=== PATIENT | male | born 1990 | race Caucasian/White ===

== ENCOUNTER 2021-03-18 01:21 | Emergency (ER) | payer BC, SELFPAY ==
[2021-03-18 01:25] VITALS: BP 135/79; PULSE 118; RESP 20; TEMP 36.8; O2SAT 93; BMI 40.7
--- NOTE | 2021-03-18 01:43 | PC.NURSE ---
MD at bedside for primary evaluation
[2021-03-18] MEDS: 0.9 % Sodium Chloride 1,000 ML 999 ML IVCONT ×2 (02:00→03:00)
[2021-03-18 02:01] LABS: Basophils Percent Auto 0.2 % (0-2); Eosinophils Absolute Auto 0.2 X10*3/uL (0.0-0.4); Eosinophils Percent Auto 1.8 % (0-4); Hematocrit 54.8 % (42-52); Hemoglobin 18.3 g/dl (14.0-18.0); Imm Gran Abs Auto 0.03 X10*3/uL (0.00-0.03); Imm Gran Pct Auto 0.3 % (0.0-0.4); Lymphocytes Absolute Auto 1.5 X10*3/uL (1.2-4.9); Lymphocytes Percent Auto 12.9 % (20-40); MANUAL DIFF FLAG NO; Mean Corpuscular HGB Conc 33.4 g/dl (31.0-36.0); Mean Corpuscular Hemoglobin 26.5 pg (27.0-33.0); Mean Corpuscular Volume 79.3 fL (80-98); Mean Platelet Volume 9.7 fL (9.4-12.4); Monocytes Absolute Auto 0.6 X10*3/uL (0.1-1.2); Monocytes Percent Auto 5.4 % (2-11); Neutrophils Absolute Auto 8.9 X10*3/uL (2.0-8.3); Neutrophils Percent Auto 79.4 % (45-73); Platelet Count 281 X10*3/uL (160-400); Red Blood Count 6.91 X10*6/uL (4.60-5.80); Red Cell Distribution Width 14.5 % (11.0-16.0); White Blood Count 11.2 X10*3/uL (4.8-10.8)
[2021-03-18] MEDS: ondansetron HCL 4 MG/2 ML VIAL IVPUSH (02:01)
[2021-03-18 02:02] LABS: OBS Int Ctl Valid YES; OBS1 POSITIVE (NEGATIVE)
[2021-03-18] MEDS: Famotidine/PF 20 MG/2 ML VIAL IVPUSH (02:03)
[2021-03-18] MEDS: Magnesium Hydrox/Alum Hydrox 30 ML ORAL.SUSP PO (02:16)
[2021-03-18 02:30] LABS: Alanine Aminotransferase 56 U/L (0-40); Albumin Level 4.4 g/dL (3.5-5.0); Alkaline Phosphatase 80 U/L (39-117); Anion Gap 18 (12-20); Aspartate Amino Transferase 25 U/L (5-37); Bilirubin Direct 0.2 mg/dL (0.0-0.5); Bilirubin Total 0.6 mg/dL (0.0-1.0); Blood Urea Nitrogen 11 mg/dL (9-16); Calcium 9.6 mg/dL (8.4-10.2); Carbon Dioxide 23 mmol/L (22-29); Chloride 102 mmol/L (96-108); Creatinine Clr Calc Pharmacy 126.4; Estimated Glomerular Filt Rate > 60; Glucose Random 137 mg/dL (60-115); Lipase 21 U/L (8-78); Potassium 4.1 mmol/L (3.3-5.1); Sodium 139 mmol/L (135-145); Total Protein 8.6 g/dL (6.5-8.0)
--- NOTE | 2021-03-18 02:52 | ED_ITS ---
HPI - Nausea/Vomiting/Diarrhea General Chief complaint: Nausea/Vomiting/Diarrhea Stated complaint: Abd pain Time Seen by Provider: 03/18/21 01:47 Source: patient and family Mode of arrival: ambulatory Limitations: no limitations History of Present Illness HPI Narrative: 30-year-old male came in for evaluation of nausea, vomiting and diarrhea. Symptoms started 24 hours ago after eating at [employer] restaurant, no other sick contact ate the same food but not sick, presented with vomiting which is constant unable to keep no food or fluid down for all day, 4-5 times nonbloody watery diarrhea (described as coffee-ground diarrhea), complaining of epigastric/left upper abdominal pain. Symptoms were constant or day today, described as moderate 5/10, associated with coffee-ground diarrhea, n othing improved the symptoms, food and water will make the symptoms worse, patient had similar episode of symptoms 2 years ago was diagnosed with gastritis. Related Data Previous Rx's Medication Instructions Recorded albuterol sulfate 90 mcg/actuation 1 inh INHALATION QID PRN 30 Days 02/25/21 aerosol inhaler #8.5 g prednisone 50 mg tablet 50 mg PO DAILY 6 Days #6 tab 02/25/21 omeprazole magnesium [Prilosec OTC] 20 mg PO BID #30 tab 03/18/21 ondansetron HCl [Zofran] 4 mg PO Q8H PRN #10 tab 03/18/21 Allergies Allergy/AdvReac Type Severity Reaction Status Date / Time No Known Allergies Allergy Verified 03/18/21 01:24 [No Known Allergies*] Pumpkin Flavor Allergy Unknown hives, Uncoded 08/23/19 00:00 nausea/vomiting Review of Systems Review of Systems: All other systems are reviewed and are negative Constitutional: Reports as per HPI and Reports no additional constitutional complaints Eyes: Reports as per HPI and Reports no additional eye complaints Reports system reviewed and no additional complaints, except as documented Cardiovascular: Reports as per HPI and Reports no additional cardiovascular complaints Respiratory: Reports as per HPI and Reports no additional respiratory complaints Gastrointestinal: Reports as per HPI and Reports no additional gastrointestinal complaints Genitourinary: Reports no additional female genitourinary complaints Musculoskeletal: Reports no additional musculoskeletal complaints Skin/Breast: Reports system reviewed and no additional complaints, except as docu Psychiatric: Reports no additional psychiatric complaints Endocrine: Reports no additional endocrine complaints Hematologic/Lymphatic: Reports no additional hematologic/lymphatic complaints Allergic/Immunologic: Reports no additional allergic/immunologic complaints Reports system reviewed and no additional complaints, except as documented and Reports Abnormal speech present [facility] Past Medical History Medical History Hypertension Social History Social History Advance Directives: No Advance Directives Information Provided: No Physical Exam Vital Signs: Vital Signs: Last Vital Signs Temp 98.3 F 03/18/21 01:25 Pulse 118 H 03/18/21 01:25 Resp 16 03/18/21 03:30 BP 135/79 03/18/21 01:25 Pulse Ox 93 03/18/21 01:25 Body Mass Index 40.7 Vital signs have been reviewed as appeared to be correct. Blood pressure normal. Heart rate elevated. Respiration rate normal. Temperature normal. Ox ygen saturation normal. Appearance: Alert. Oriented X3. No acute distress. Head: Normal external exam. Normocephalic. Atraumatic. No Conti signs noted. No raccoon eyes noted Eyes: PERRLA. EOMI. Conjunctiva and sclera normal. Eyelids normal. ENT: TM's Normal. Pharynx normal. Uvula midline. Moist mucous membranes. No trismus noted. No drooling noted. No muffled voice noted. Neck: Normal inspection. Neck supple. FROM. No adenopathy. Thyroid Normal. No meningeal signs. No neck mass noted. CVS: Normal heart rate and rhythm. Heart sound normal. No murmurs noted. Pulses normal throughout. Respiratory: No respiratory distress. Painless inspiration. Breath sounds normal. No wheezes/rales/rhonchi noted. Chest nontender. No accessory muscle usage noted or decreased air movement noted. Abdomen: Soft, obese, mild tenderness in epigastric and left upper quadrant area, no guarding, no rebound tenderness. Bowel sounds normal in all 4 quadrants. No distention noted. No organomegaly noted. No visible injury noted. Back: No CVA tenderness. Full range of motion noted. Skin: Skin warm and dry. Normal skin color. Normal skin turgor. No rashes/lesions/lacerations noted. Extremities: No lower extremity edema. Extremities exhibit normal range of motion. Extremities nontender. Neuro: Oriented X 3. No motor deficit. No sensory deficit. Reflexes normal. Course Course Course Narrative: Assessment and plan. 30-year-old male came in with nausea, vomiting, diarrhea. Patient received IV fluids/IV Zofran patient is feeling better, able to tolerate p.o. intake. Heme concentration which is old since 2019, patient was advised to follow-up with his primary doctor he has physical exam coming in the next 2 weeks and patient was encouraged to discuss that with his primary doctor for further workup for differential diagnosis of higher mass of RBCs differential diagnosis was discussed with the patient included polycythemia vera in our discussion. MDM - Nausea/Vomiting/Diarrhea Lab Data Attestation: I reviewed the patient's lab results. Result diagrams: 03/18/21 01:54 03/18/21 01:54 Labs: Lab Results 03/18/21 03/18/21 03/18/21 Range/Units 01:50 01:54 01:54 WBC 11.2 H (4.8-10.8) X10*3/uL RBC 6.91 H (4.60-5.80) X10*6/uL Hgb 18.3 H (14.0-18.0) g/dl Hct 54.8 H (42-52) % MCV 79.3 L (80-98) fL MCH 26.5 L (27.0-33.0) pg MCHC 33.4 (31.0-36.0) g/dl RDW 14.5 (11.0-16.0) % Plt Count 281 (160-400) X10*3/uL MPV 9.7 (9.4-12.4) fL Immature Gran % (Auto) 0.3 (0.0-0.4) % Neut % (Auto) 79.4 H (45-73) % Lymph % (Auto) 12.9 L (20-40) % [place] % (Auto) 5.4 (2-11) % Eos % (Auto) 1.8 (0-4) % Baso % (Auto) 0.2 (0-2) % Lymph # (Auto) 1.5 (1.2-4.9) X10*3/uL [place] # (Auto) 0.6 (0.1-1.2) X10*3/uL Eos # (Auto) 0.2 (0.0-0.4) X10*3/uL Baso # (Auto) 0.0 (0.0-0.2) X10*3/uL Abs Immat Gran (auto) 0.03 (0.00-0.03) X10*3/uL Absolute Neuts (auto) 8.9 H (2.0-8.3) X10*3/uL Absolute Nucleated RBC 0.000 (0.0-0.012) X10*3/uL Nucleated RBC % (auto) 0.0 (0.0-0.2) /100WBC Sodium 139 (135-145) mmol/L Potassium 4.1 (3.3-5.1) mmol/L Chloride 102 (96-108) mmol/L Carbon Dioxide 23 (22-29) mmol/L Anion Gap 18 (12-20) BUN 11 (9-16) mg/dL Creatinine 0.90 (0.5-1.4) mg/dL Estim Creat Clear Calc 126.4 Estimated GFR > 60 Random Glucose 137 H (60-115) mg/dL Calcium 9.6 (8.4-10.2) mg/dL Total Bilirubin 0.6 (0.0-1.0) mg/dL Direct Bilirubin 0.2 (0.0-0.5) mg/dL AST 25 (5-37) U/L ALT 56 H (0-40) U/L Alkaline Phosphatase 80 (39-117) U/L Total Protein 8.6 H (6.5-8.0) g/dL Albumin 4.4 (3.5-5.0) g/dL Lipase 21 (8-78) U/L Urine Color Urine Appearance Urine pH (5.0-8.0) Ur Specific [place] (1.005-1.025) Urine Protein (NEG-TRACE) MG/DL Urine Glucose (UA) (NEG) MG/DL Urine Ketones (NEG) MG/DL Urine Blood (NEG) Urine Nitrite (NEG) Ur Leukocyte Esterase (NEG) Urine RBC (0) /HPF Urine WBC (0-4) /HPF Ur Squamous Epith Cells /LPF Urine Bacteria /LPF Urine Mucus /LPF Stool Occult Blood POSITIVE (NEGATIVE) 03/18/21 Range/Units 02:57 WBC (4.8-10.8) X10*3/uL RBC (4.60-5.80) X10*6/uL Hgb (14.0-18.0) g/dl Hct (42-52) % MCV (80-98) fL MCH (27.0-33.0) pg MCHC (31.0-36.0) g/dl RDW (11.0-16.0) % Plt Count (160-400) X10*3/uL MPV (9.4-12.4) fL Immature Gran % (Auto) (0.0-0.4) % Neut % (Auto) (45-73) % Lymph % (Auto) (20-40) % [place] % (Auto) (2-11) % Eos % (Auto) (0-4) % Baso % (Auto) (0-2) % Lymph # (Auto) (1.2-4.9) X10*3/uL [place] # (Auto) (0.1-1.2) X10*3/uL Eos # (Auto) (0.0-0.4) X10*3/uL Baso # (Auto) (0.0-0.2) X10*3/uL Abs Immat Gran (auto) (0.00-0.03) X10*3/uL Absolute Neuts (auto) (2.0-8.3) X10*3/uL Absolute Nucleated RBC (0.0-0.012) X10*3/uL Nucleated RBC % (auto) (0.0-0.2) /100WBC Sodium (135-145) mmol/L Potassium (3.3-5.1) mmol/L Chloride (96-108) mmol/L Carbon Dioxide (22-29) mmol/L Anion Gap (12-20) BUN (9-16) mg/dL Creatinine (0.5-1.4) mg/dL Estim Creat Clear Calc Estimated GFR Random Glucose (60-115) mg/dL Calcium (8.4-10.2) mg/dL Total Bilirubin (0.0-1.0) mg/dL Direct Bilirubin (0.0-0.5) mg/dL AST (5-37) U/L ALT (0-40) U/L Alkaline Phosphatase (39-117) U/L Total Protein (6.5-8.0) g/dL Albumin (3.5-5.0) g/dL Lipase (8-78) U/L Urine Color YELLOW Urine Appearance CLEAR Urine pH 6.0 (5.0-8.0) Ur Specific [place] >= 1.030 H (1.005-1.025) Urine Protein 2+ H (NEG-TRACE) MG/DL Urine Glucose (UA) NEG (NEG) MG/DL Urine Ketones NEG (NEG) MG/DL Urine Blood TRACE (NEG) Urine Nitrite NEG (NEG) Ur Leukocyte Esterase NEG (NEG) Urine RBC 1-4 (0) /HPF Urine WBC 1-4 (0-4) /HPF Ur Squamous Epith Cells 1+ /LPF Urine Bacteria 1+ /LPF Urine Mucus 1+ /LPF Stool Occult Blood (NEGATIVE) Discharge Plan Discharge Clinical Impression: Gastroenteritis Patient Disposition: Home, Self-Care Instructions: Acute Nausea and Vomiting (ED) Prescriptions: New omeprazole magnesium [Prilosec OTC] 20 mg tablet,delayed release (DR/EC) 20 mg PO BID Qty: 30 RF: 0 ondansetron HCl [Zofran] 4 mg tablet 4 mg PO Q8H PRN (Reason: nausea and vomiting) Qty: 10 RF: 0 No Action albuterol sulfate 90 mcg/actuation HFA aerosol inhaler 1 inh inhalation QID PRN (Reason: shortness of breath or wheezing) 30 Days Qty: 8.5 RF: 1 prednisone 50 mg tablet 50 mg PO DAILY 6 Days Qty: 6 RF: 0 Referrals: Alejandro Flores, [employer] [Primary Care Provider] - 2 weeks (Discuss with your primary doctor the high blood count that we found today in your laboratory workup.) Stand Alone Forms: Work/School Release
[2021-03-18 03:03] LABS: Glucose Urine UA NEG (NEG); Leukocyte Esterase Urine NEG (NEG); Nitrite Urine NEG (NEG); Specific Gravity - Urine >= 1.030 (1.005-1.025); Urine Blood TRACE (NEG); Urine Ketones NEG (NEG); Urine Protein 2+ MG/DL (NEG-TRACE)
[2021-03-18 03:06] LABS: Appearance Urine CLEAR; Color Urine YELLOW
[2021-03-18 03:13] LABS: Bacteria Urine 1+ /LPF; Mucus Urine 1+ /LPF; Squamous Epithelial Cell Urine 1+ /LPF
[2021-03-18 03:30] VITALS: RESP 16
[2021-03-18] MEDS: Morphine Sulfate 2 MG/ML CARTRIDGE IVPUSH (03:30)
== END 2021-03-18 05:47 | disposition home or self-care (01) ==
PROVIDERS: Emergency Provider Emergency Medicine; PCP Nurse Practitioner Family
DX: K52.9 Noninfective gastroenteritis and colitis, unspecified (principal); R11.2 Nausea with vomiting, unspecified; I10 Essential (primary) hypertension; K75.81 Nonalcoholic steatohepatitis (NASH)
CPT/HCPCS: 36415; 80048; 80076; 81001; 82272; 83690; 85025; 96361; 96374; 96375; 99284; J2270; J2405

== ENCOUNTER 2021-03-30 20:01 | Observation (INO) | payer BC, SELFPAY ==
--- NOTE | ~2021-03-30 | CT_ITS ---
EXAMINATION: CT ABDOMEN AND PELVIS WITH CONTRAST CLINICAL INFORMATION: Abdominal pain, nausea and vomiting COMPARISON: None TECHNIQUE: Multidetector volumetric images were obtained from the superior aspect of the liver through the pubic symphysis following administration 85 mL of Omnipaque 350 intravenous contrast. Sagittal and coronal reformatted images were obtained on the technologist's workstation. Oral contrast: No This CT examination was performed using dose optimization techniques as appropriate, variously including the following: *Automated exposure control *Adjustment of mA and/or kV according to patient size (this includes techniques or standardized protocols for targeted exams where dose is matched to indication/reason for exam; i.e. extremities or head) *Use of iterative reconstruction technique DLP: 733 mGy-cm FINDINGS: LUNG BASES: The visualized lung bases are unremarkable. LIVER, GALLBLADDER, AND BILIARY TREE: Liver is enlarged measuring almost 23 cm in cephalocaudad dimension and demonstrates decreased attenuation consistent with hepatic steatosis. There are areas of focal fatty sparing adjacent to the gallbladder. No focal hepatic lesion or biliary ductal dilatation is present. The gallbladder is unremarkable with no evidence of radiopaque gallstones, gallbladder wall thickening, or obvious pericholecystic inflammatory changes. PANCREAS: Unremarkable. SPLEEN: Unremarkable. ADRENAL GLANDS: Unremarkable. KIDNEYS AND URETERS: The kidneys are normal in size, shape, and attenuation. A benign 5 mm angiomyolipoma is noted in the upper pole of the right kidney. No worrisome renal masses are seen. No hydronephrosis, hydroureter, or calculi seen. No perinephric stranding. BLADDER: Unremarkable. GASTROINTESTINAL TRACT: The small and large bowel are unremarkable. The appendix is unremarkable. ABDOMINAL WALL: No significant hernia is appreciated. LYMPH NODES: No retroperitoneal lymphadenopathy. VASCULAR: Unremarkable. PELVIC VISCERA: Prostate and seminal vesicles appear normal. OSSEOUS STRUCTURES: Unremarkable. CT/CT abdomen pelvis w con IMPRESSION: 1. Enlarged fatty liver 2. Tiny benign right renal angiomyolipoma
--- NOTE | ~2021-03-30 | XR_ITS ---
EXAMINATION: XR CHEST CLINICAL INFORMATION: Abdominal pain, nausea, vomiting and diarrhea COMPARISON: None TECHNIQUE: Frontal view of the chest was obtained. FINDINGS: No significant abnormality is noted involving the heart, lungs, mediastinum, bony thorax or soft tissues. XR/XR chest 1V IMPRESSION: Unremarkable examination.
[2021-03-30 20:52] VITALS: BP 154/94; PULSE 100; RESP 20; TEMP 36.3; O2SAT 95; BMI 39.5
[2021-03-30 22:24] LABS: MANUAL DIFF FLAG NO
--- NOTE | 2021-03-30 22:28 | ECG_ITS ---
Test Reason : EPIGASTRIC PAIN Blood Pressure : / mmHG Vent. Rate : 096 BPM Atrial Rate : 096 BPM P-R Int : 146 ms QRS Dur : 078 ms QT Int : 414 ms P-R-T Axes : 054 021 -06 degrees QTc Int : 523 ms Normal sinus rhythm Prolonged QT Abnormal ECG No previous ECGs available Referred By: Kerrie Cook Electronically Signed By:BERTO LEDEZMA MD
[2021-03-30 22:29] LABS: Basophils Percent Auto 0.3 % (0-2); Eosinophils Absolute Auto 0.2 X10*3/uL (0.0-0.4); Eosinophils Percent Auto 1.6 % (0-4); Hematocrit 50.7 % (42-52); Hemoglobin 17.1 g/dl (14.0-18.0); Imm Gran Abs Auto 0.07 X10*3/uL (0.00-0.03); Imm Gran Pct Auto 0.7 % (0.0-0.4); Lymphocytes Percent Auto 21.3 % (20-40); Mean Corpuscular HGB Conc 33.7 g/dl (31.0-36.0); Mean Corpuscular Hemoglobin 26.6 pg (27.0-33.0); Mean Corpuscular Volume 78.7 fL (80-98); Monocytes Absolute Auto 0.5 X10*3/uL (0.1-1.2); Monocytes Percent Auto 5.2 % (2-11); Neutrophils Absolute Auto 6.6 X10*3/uL (2.0-8.3); Neutrophils Percent Auto 70.9 % (45-73); Platelet Count 261 X10*3/uL (160-400); Red Blood Count 6.44 X10*6/uL (4.60-5.80); Red Cell Distribution Width 13.7 % (11.0-16.0); White Blood Count 9.4 X10*3/uL (4.8-10.8)
[2021-03-30 22:38] LABS: Glucose Urine UA NEG (NEG); Leukocyte Esterase Urine NEG (NEG); Nitrite Urine NEG (NEG); Specific Gravity - Urine >= 1.030 (1.005-1.025); Urine Blood TRACE (NEG); Urine Ketones NEG (NEG); Urine Protein 2+ MG/DL (NEG-TRACE)
[2021-03-30 22:41] LABS: Alanine Aminotransferase 47 U/L (0-40); Albumin Level 4.1 g/dL (3.5-5.0); Alkaline Phosphatase 81 U/L (39-117); Anion Gap 16 (12-20); Aspartate Amino Transferase 31 U/L (5-37); Bilirubin Total 0.6 mg/dL (0.0-1.0); Blood Urea Nitrogen 10 mg/dL (9-16); Calcium 9.1 mg/dL (8.4-10.2); Carbon Dioxide 21 mmol/L (22-29); Chloride 104 mmol/L (96-108); Creatinine Clr Calc Pharmacy 148.7; Estimated Glomerular Filt Rate > 60; Glucose Random 133 mg/dL (60-115); Potassium 3.6 mmol/L (3.3-5.1); Sodium 137 mmol/L (135-145); Total Protein 8.3 g/dL (6.5-8.0)
[2021-03-30 22:44] LABS: Appearance Urine CLEAR; Color Urine YELLOW
[2021-03-30 22:47] LABS: Bacteria Urine 1+ /LPF; Hyaline Casts Urine 0-2 /LPF; Mucus Urine 2+ /LPF; Squamous Epithelial Cell Urine 1+ /LPF
[2021-03-30 23:05] VITALS: BP 134/87; PULSE 87; RESP 16; TEMP 36.6; O2SAT 98
[2021-03-30 23:07] LABS: Bilirubin Direct 0.2 mg/dL (0.0-0.5); Lipase 27 U/L (8-78); Magnesium 1.7 mg/dL (1.6-2.6); Triglycerides 939 mg/dL
--- NOTE | 2021-03-30 23:15 | ED_ITS ---
HPI - Abdominal Pain General Chief Complaint: Abdominal Pain Stated Complaint: nvd Source: patient Mode of arrival: ambulatory Limitations: no limitations History of Present Illness HPI narrative: 30-year-old male presents with abdominal pain, and intractable nausea and vomiting over the past several weeks. States the pain has come and gone, as well as the nausea and vomiting however has been present almost on a daily basis. Was seen approximately 2 weeks ago for similar circumstances with no significant findings. Patient stated that his difficult time eating and drinking over the past few days. He does not report any chest pain or pressure, palpitations, shortness breath, shortness breath on exertion, abdominal distention, dysuria, hematuria, diarrhea, constipation, melena, hematochezia, loss of balance, weakness, fevers, chills, or any other concerning symptoms. Patient does not report diabetes, also states that he does not drink alcohol on regular basis. MD elicited complaint: abdominal pain Onset (ago): week(s) Pain Consistency: intermittent Location: diffuse Severity: moderate Quality: aching Exacerbating factors: eating and vomiting Relieving factors: nothing Treatments prior to arrival: other (Antiemetics) Related Data Home Medications Medication Instructions Recorded Confirmed No Known Home Meds 03/31/21 03/31/21 Allergies Allergy/AdvReac Type Severity Reaction Status Date / Time No Known Allergies Allergy Verified 03/18/21 01:24 [No Known Allergies*] Pumpkin Flavor Allergy Unknown hives, Uncoded 08/23/19 00:00 nausea/vomiting Review of Systems Review of Systems Constitutional: No Weight loss, No Fever, No Chills, No Night Sweats, No Fatigue, No Malaise ENT/Mouth: No Hearing loss, No Ear Pain, No Nasal Congestion, No Sinus Pain, No Hoarseness, No sore throat, No Rhinorrhea, No Swallowing Difficulty Eyes: No Eye Pain, No Swelling, No Redness, No Foreign Body, No Discharge, No Vision Changes Cardiovascular: No Chest Pain, No SOB, No Dyspnea on Exertion, No Orthopnea, No Edema, No Palpitations Respiratory: No Cough, No Sputum, No Wheezing, No Smoke Exposure, No Dyspnea Gastrointestinal: Positive Nausea, Positive Vomiting, no Diarrhea, positive abdominal Pain, No Hematochezia, No Melena Genitourinary: no irregular bleeding, No Dysuria, No Urinary Frequency, No Hematuria, No Urinary Incontinence, No Urgency, No Flank Pain, No Urinary Flow Changes, No Hesitancy Musculoskeletal: No joint pain, No Myalgias, No Joint Swelling Skin: No Skin Lesions, No rash Neuro: No Weakness, No Numbness, No Paresthesias, No Loss of Consciousness, No Dizziness, No Headache Psych: No Anxiety/Panic, No Depression, No SI/HI/AH/VH, No Social Issues Heme/Lymph: No Bruising, No Bleeding,No Lymphadenopathy Endocrine: No Polyuria, No Polydipsia, No Temperature Intolerance Yes all other systems are reviewed and are negative Physical Exam Vital Signs: Vital Signs: Last Vital Signs Temp 97.8 F 03/30/21 23:05 Pulse 87 03/30/21 23:05 Resp 20 03/30/21 23:22 BP 134/87 03/30/21 23:05 Pulse Ox 98 03/30/21 23:05 Body Mass Index 39.5 Appearance: Alert. Oriented X3. Moderate distress. Eyes: Pupils equal, round and reactive to light. Sclera nonicteric. ENT: Pharynx normal. Neck: Normal inspection. Neck supple. CVS: Tachycardic heart rate and rhythm. Pulses normal. Respiratory: No respiratory distress. Breath sounds normal. Abdomen: Soft and diffusely tender greater than right upper quadrant. Skin: Skin warm and dry. Normal skin color. Normal skin turgor. Extremities: No lower extremity edema. Moves all extremities against resistance, it well balanced well coordinated. Neuro: No motor deficit. No sensory deficit. Cranial nerves 2-12 intact. Course Course Course Narrative: 30-year-old male presents with intractable nausea and vomiting and abdominal pain. Was seen here 2 weeks ago with lab values indicating elevated triglycerides at about 840 and a mildly elevated white count. At this time we will order CT scan of abdomen and pelvis with contrast, CBC, Chem 7, lipase, LFTs, and triglycerides. Triglycerides elevated at 940, EKG indicates a prolonged QT interval, lipase 27, CBC unremarkable, chemistries are unremarkable with the exception of an elevated glucose of 133. Patient continues to have intractable nausea and vomiting after a dose of Zofran, did order Benadryl. Discussion with hospitalist for admission for intractable nausea vomiting, elevated triglycerides with a suspicion of pancreatitis although CT scan is ne gative for this finding. Consultations Consultation #1: rachel Time: 23:59 MDM - Abdominal Pain Differential Diagnosis Differential diagnosis: Likely abdominal pain, acute appendicitis, div erticulitis and pancreatitis Medical Records Attestation: I reviewed the patient's medical records. Lab Data Attestation: I reviewed the patient's lab results. Result diagrams: 03/30/21 22:06 03/30/21 22:06 Labs: Lab Results 03/30/21 03/30/21 03/30/21 Range/Units 22:06 22:06 22:06 WBC 9.4 (4.8-10.8) X10*3/uL RBC 6.44 H (4.60-5.80) X10*6/uL Hgb 17.1 (14.0-18.0) g/dl Hct 50.7 (42-52) % MCV 78.7 L (80-98) fL MCH 26.6 L (27.0-33.0) pg MCHC 33.7 (31.0-36.0) g/dl RDW 13.7 (11.0-16.0) % Plt Count 261 (160-400) X10*3/uL MPV 10.0 (9.4-12.4) fL Immature Gran % (Auto) 0.7 H (0.0-0.4) % Neut % (Auto) 70.9 (45-73) % Lymph % (Auto) 21.3 (20-40) % [place] % (Auto) 5.2 (2-11) % Eos % (Auto) 1.6 (0-4) % Baso % (Auto) 0.3 (0-2) % Lymph # (Auto) 2.0 (1.2-4.9) X10*3/uL [place] # (Auto) 0.5 (0.1-1.2) X10*3/uL Eos # (Auto) 0.2 (0.0-0.4) X10*3/uL Baso # (Auto) 0.0 (0.0-0.2) X10*3/uL Abs Immat Gran (auto) 0.07 H (0.00-0.03) X10*3/uL Absolute Neuts (auto) 6.6 (2.0-8.3) X10*3/uL Absolute Nucleated RBC 0.000 (0.0-0.012) X10*3/uL Nucleated RBC % (auto) 0.0 (0.0-0.2) /100WBC PT (10.8-13.0) SEC INR (0.9-1.1) APTT (24.1-38.0) SEC Sodium 137 (135-145) mmol/L Potassium 3.6 (3.3-5.1) mmol/L Chloride 104 (96-108) mmol/L Carbon Dioxide 21 L (22-29) mmol/L Anion Gap 16 (12-20) BUN 10 (9-16) mg/dL Creatinine 0.78 (0.5-1.4) mg/dL Estim Creat Clear Calc 148.7 Estimated GFR > 60 Random Glucose 133 H (60-115) mg/dL Lactic Acid (0.5-2.0) mmol/L Calcium 9.1 (8.4-10.2) mg/dL Magnesium 1.7 (1.6-2.6) mg/dL Total Bilirubin 0.6 (0.0-1.0) mg/dL Direct Bilirubin 0.2 (0.0-0.5) mg/dL AST 31 (5-37) U/L ALT 47 H (0-40) U/L Alkaline Phosphatase 81 (39-117) U/L Troponin I High Sens < 3.5 (<3.5-35.0) ng/L Total Protein 8.3 H (6.5-8.0) g/dL Albumin 4.1 (3.5-5.0) g/dL Triglycerides 939 mg/dL Lipase 27 (8-78) U/L Urine Color Urine Appearance Urine pH (5.0-8.0) Ur Specific [place] (1.005-1.025) Urine Protein (NEG-TRACE) MG/DL Urine Glucose (UA) (NEG) MG/DL Urine Ketones (NEG) MG/DL Urine Blood (NEG) Urine Nitrite (NEG) Ur Leukocyte Esterase (NEG) Urine RBC (0) /HPF Urine WBC (0-4) /HPF Ur Squamous Epith Cells /LPF Urine Bacteria /LPF Hyaline Casts /LPF Urine Mucus /LPF 03/30/21 03/30/21 03/30/21 Range/Units 22:22 22:59 22:59 WBC (4.8-10.8) X10*3/uL RBC (4.60-5.80) X10*6/uL Hgb (14.0-18.0) g/dl Hct (42-52) % MCV (80-98) fL MCH (27.0-33.0) pg MCHC (31.0-36.0) g/dl RDW (11.0-16.0) % Plt Count (160-400) X10*3/uL MPV (9.4-12.4) fL Immature Gran % (Auto) (0.0-0.4) % Neut % (Auto) (45-73) % Lymph % (Auto) (20-40) % [place] % (Auto) (2-11) % Eos % (Auto) (0-4) % Baso % (Auto) (0-2) % Lymph # (Auto) (1.2-4.9) X10*3/uL [place] # (Auto) (0.1-1.2) X10*3/uL Eos # (Auto) (0.0-0.4) X10*3/uL Baso # (Auto) (0.0-0.2) X10*3/uL Abs Immat Gran (auto) (0.00-0.03) X10*3/uL Absolute Neuts (auto) (2.0-8.3) X10*3/uL Absolute Nucleated RBC (0.0-0.012) X10*3/uL Nucleated RBC % (auto) (0.0-0.2) /100WBC PT 12.7 (10.8-13.0) SEC INR 1.1 (0.9-1.1) APTT 35.8 (24.1-38.0) SEC Sodium (135-145) mmol/L Potassium (3.3-5.1) mmol/L Chloride (96-108) mmol/L Carbon Dioxide (22-29) mmol/L Anion Gap (12-20) BUN (9-16) mg/dL Creatinine (0.5-1.4) mg/dL Estim Creat Clear Calc Estimated GFR Random Glucose (60-115) mg/dL Lactic Acid 1.8 (0.5-2.0) mmol/L Calcium (8.4-10.2) mg/dL Magnesium (1.6-2.6) mg/dL Total Bilirubin (0.0-1.0) mg/dL Direct Bilirubin (0.0-0.5) mg/dL AST (5-37) U/L ALT (0-40) U/L Alkaline Phosphatase (39-117) U/L Troponin I High Sens (<3.5-35.0) ng/L Total Protein (6.5-8.0) g/dL Albumin (3.5-5.0) g/dL Triglycerides mg/dL Lipase (8-78) U/L Urine Color YELLOW Urine Appearance CLEAR Urine pH 6.0 (5.0-8.0) Ur Specific [place] >= 1.030 H (1.005-1.025) Urine Protein 2+ H (NEG-TRACE) MG/DL Urine Glucose (UA) NEG (NEG) MG/DL Urine Ketones NEG (NEG) MG/DL Urine Blood TRACE (NEG) Urine Nitrite NEG (NEG) Ur Leukocyte Esterase NEG (NEG) Urine RBC 1-4 (0) /HPF Urine WBC 1-4 (0-4) /HPF Ur Squamous Epith Cells 1+ /LPF Urine Bacteria 1+ /LPF Hyaline Casts 0-2 /LPF Urine Mucus 2+ /LPF Imaging Data Chest x-ray: Attestation: I personally reviewed and interpreted this imaging study as follows: Radiologist's impression: EXAMINATION: XR CHEST CLINICAL INFORMATION: Abdominal pain, nausea, vomiting and diarrhea COMPARISON: None TECHNIQUE: Frontal view of the chest was obtained. FINDINGS: No significant abnormality is noted involving the heart, lungs, mediastinum, bony thorax or soft tissues. XR/XR chest 1V IMPRESSION: Unremarkable examination. ECG Data Attestation: I personally reviewed and interpreted this ECG as follows: ECG interpretation date: 03/30/21 ECG interpretation time: 23:38 Prior ECG tracings: not available for review Interpretation: Vent. rate 96 BPM MD interval 146 ms QRS duration 78 ms QT/QTc 414/523 ms P-R-T axes 54 21 -6 Normal sinus rhythm Prolonged QT Abnormal ECG No previous ECGs available Critical Care Time Critical Care Time Critical Care Time: Yes Total Critical Care Time: 45 Attestation: I have personally provided critical care time exclusive of time spent on separately billable procedures. Time includes review of laboratory data, radiology results, discussion with consultants, and monitoring for potential decompensation. Interventions were performed as documented. Discharge Plan Discharge Clinical Impression: High blood triglycerides, Intractable nausea and vomiting Pancreatitis Qualifiers: Chronicity: acute Pancreatitis type: unspecified pancreatitis type Acute pancreatitis complication: unspecified Qualified Code(s): K85.90 - Acute pancreatitis without necrosis or infection, unspecified Patient Disposition: Admitted As Inpatient [facility] Past Medical History Attestation statement: The following information was validated with the patient. Source: old records reviewed Medical History Hypertension Social History Social History Alcohol intake: never Patient Tobacco Use Status: Never used Tobacco Smoked in Last 30 Days: No Use of substances other than those prescribed or required for medical reasons: No Advance Directives: No
[2021-03-30] MEDS: iohexoL 350 MG/ML 100 ML INFUS..BTL 85 ML IV (23:18)
[2021-03-30 23:22] VITALS: RESP 20
[2021-03-30] MEDS: 0.9 % Sodium Chloride 1,000 ML 999 ML IVCONT (23:22)
[2021-03-30] MEDS: ondansetron HCL 4 MG/2 ML VIAL IVPUSH (23:22)
[2021-03-30] MEDS: Morphine Sulfate 4 MG/ML CARTRIDGE IVPUSH (23:22)
[2021-03-30 23:25] LABS: Troponin-I High Sensitivity < 3.5 ng/L (<3.5-35.0)
[2021-03-30 23:30] LABS: INTERNATIONAL NORM RATIO 1.1 (0.9-1.1); Prothrombin Time 12.7 SEC (10.8-13.0)
[2021-03-30 23:31] LABS: Lactic Acid 1.8 mmol/L (0.5-2.0)
[2021-03-30 23:32] LABS: Partial Thromboplastin Time 35.8 SEC (24.1-38.0)
--- NOTE | 2021-03-30 23:43 | PC.NURSE ---
patient medicated per emar, ambulating steadily, no facial grimace or guarding stating more discomfort than pain. no acute distress noted, awaiting imaging results.
[2021-03-30] MEDS: diphenhydrAMINE HCL 50 MG/ML VIAL IVPUSH (23:58)
--- NOTE | 2021-03-31 | PC.NURSE ---
having 1 episode of vomiting, medicated per emar.
[2021-03-31] MEDS: 0.9 % Sodium Chloride 1,000 ML 999 ML IVCONT (00:42)
--- NOTE | 2021-03-31 00:46 | P.HPHOSP_ITS ---
History of Present Illness Date of Service: 03/31/21 Chief Complaint: Nausea/vomiting/abdominal discomfort 30-year-old male with the past medical history of asthma presented to the hospital with a chief complaint of nausea/vomiting/abdominal discomfort. Patient reports that he has been having the symptoms for the past 2 weeks. We stayed ER about a week ago wherein noted to have elevated triglycerides; subsequently patient was sent home. Lipase was within normal limits. Patient continued to have the symptoms and reports poor oral intake. Hence presented back to the ER for further evaluation. Patient denies any chest pain palpitations lightheadedness or dizziness. Denies any food eating outside. Denies any urinary symptoms. Patient complains of abdominal discomfort attributes to vomiting. Denies any alcohol use or illicit drug use. Review of all other systems is negative except mentioned above ER course: Per ER team patient noted to diffuse abdominal tenderness; on the labs noted to have elevated triglycerides to 900s. Patient pain failed oral challenge in the ER. Admitted to the hospital for further management. [facility] Medical History (Updated 03/31/21 @ 07:48 by Garrett Stafford MD) Hypertension Metabolic syndrome TAPIA (nonalcoholic steatohepatitis) Social History Alcohol intake: never Patient Tobacco Use Status: Never used Tobacco Meds Allergies Allergy/AdvReac Type Severity Reaction Status Date / Time No Known Allergies Allergy Verified 03/18/21 01:24 [No Known Allergies*] Pumpkin Flavor Allergy Unknown hives, Uncoded 08/23/19 00:00 nausea/vomiting Active Medications: Current Medications Generic Name Dose Route Start Last Admin Trade Name Nicoq PRN Reason Stop Dose Admin Atorvastatin Calcium 40 mg 03/31/21 21:00 Atorvastatin Calcium 40 Mg Tablet PO BEDTIME MARYCRUZ Docusate Sodium 100 mg 03/31/21 09:00 Docusate Sodium 100 Mg Capsule PO BID MARYCRUZ Famotidine 20 mg 03/31/21 09:00 Famotidine/Pf 20 Mg/2 Ml Vial IVPUSH BID MARYCRUZ Gemfibrozil 600 mg 03/31/21 07:30 Gemfibrozil 600 Mg Tablet PO BIDAC MARYCRUZ Sodium Chloride 1,000 mls @ 999 mls/hr 03/31/21 00:15 03/31/21 00:42 Ns IVCONT 03/31/21 01:15 999 mls/hr .Q1H1M MARYCRUZ Administration Dextrose/Sodium Chloride 1,000 mls @ 100 mls/hr 03/31/21 00:45 D51/2ns IVCONT .Q10H MARYCRUZ Magnesium Hydroxide 30 ml 03/31/21 00:42 Milk Of Magnesia 30 Ml Oral.Susp PO DAILY PRN Constipation Morphine Sulfate 1 mg 03/31/21 00:42 Morphine Sulfate 4 Mg/Ml Cartridge IVPUSH Q4H PRN Pain, Severe (Pain Scale 7-10) Ondansetron HCl 4 mg 03/31/21 00:42 Ondansetron Hcl 4 Mg/2 Ml Vial IVPUSH Q8H PRN Nausea and Vomiting Sodium Chloride 3 ml 03/31/21 08:00 0.9 % Sodium Chloride Flush 3 Ml Syringe IVFLUSH QSHIFT [facility] Physical Exam Vital Signs and Narrative: Vital Signs: Last Vital Signs Temp 97.8 F 03/30/21 23:05 Pulse 87 03/30/21 23:05 Resp 20 03/30/21 23:22 BP 134/87 03/30/21 23:05 Pulse Ox 98 03/30/21 23:05 Body Mass Index 39.5 Gen: Appears be in no acute distress HEENT: NCAT, Moist mucosa. Pulmonary: Vesicular breath sounds, fair air entry CVS: Normal S1-S2 Abdomen: BS+, Soft, mildly tender diffusely, no guarding Extremities: Warm well perfused Neuro: Alert and awake. Results Labs CBC and Chem 7: 03/31/21 06:40 03/31/21 06:40 Labs: Laboratory Results - last 24 hr 03/30/21 03/30/21 03/30/21 22:06 22:06 22:06 MCV 78.7 L MCH 26.6 L MCHC 33.7 RDW 13.7 Plt Count 261 MPV 10.0 Immature Gran % (Auto) 0.7 H Neut % (Auto) 70.9 Lymph % (Auto) 21.3 [place] % (Auto) 5.2 Eos % (Auto) 1.6 Baso % (Auto) 0.3 Lymph # (Auto) 2.0 [place] # (Auto) 0.5 Eos # (Auto) 0.2 Baso # (Auto) 0.0 Abs Immat Gran (auto) 0.07 H Absolute Neuts (auto) 6.6 Absolute Nucleated RBC 0.000 Nucleated RBC % (auto) 0.0 PT INR APTT Anion Gap 16 Estim Creat Clear Calc 148.7 Estimated GFR > 60 Random Glucose 133 H Lactic Acid Calcium 9.1 Magnesium 1.7 Total Bilirubin 0.6 Direct Bilirubin 0.2 AST 31 ALT 47 H Alkaline Phosphatase 81 Troponin I High Sens < 3.5 Total Protein 8.3 H Albumin 4.1 Triglycerides 939 Lipase 27 Urine Color Urine Appearance Urine pH Ur Specific [place] Urine Protein Urine Glucose (UA) Urine Ketones Urine Blood Urine Nitrite Ur Leukocyte Esterase Urine RBC Urine WBC Ur Squamous Epith Cells Urine Bacteria Hyaline Casts Urine Mucus 03/30/21 03/30/21 03/30/21 22:22 22:59 22:59 MCV MCH MCHC RDW Plt Count MPV Immature Gran % (Auto) Neut % (Auto) Lymph % (Auto) [place] % (Auto) Eos % (Auto) Baso % (Auto) Lymph # (Auto) [place] # (Auto) Eos # (Auto) Baso # (Auto) Abs Immat Gran (auto) Absolute Neuts (auto) Absolute Nucleated RBC Nucleated RBC % (auto) PT 12.7 INR 1.1 APTT 35.8 Anion Gap Estim Creat Clear Calc Estimated GFR Random Glucose Lactic Acid 1.8 Calcium Magnesium Total Bilirubin Direct Bilirubin AST ALT Alkaline Phosphatase Troponin I High Sens Total Protein Albumin Triglycerides Lipase Urine Color YELLOW Urine Appearance CLEAR Urine pH 6.0 Ur Specific [place] >= 1.030 H Urine Protein 2+ H Urine Glucose (UA) NEG Urine Ketones NEG Urine Blood TRACE Urine Nitrite NEG Ur Leukocyte Esterase NEG Urine RBC 1-4 Urine WBC 1-4 Ur Squamous Epith Cells 1+ Urine Bacteria 1+ Hyaline Casts 0-2 Urine Mucus 2+ Imaging Radiologist's Impressions: Impressions Abdomen/Pelvis CT 03/30/21 22:28 IMPRESSION: 1. Enlarged fatty liver 2. Tiny benign right renal angiomyolipoma Chest X-Ray 03/30/21 22:28 IMPRESSION: Unremarkable examination. Assessment and Plan (1) Intractable nausea and vomiting: Status: Acute 30-year-old male With a past medical history of asthma presented to the hospital with a chief complaint of nausea vomiting and abdominal discomfort Nausea/vomiting/abdominal discomfort: CT abdomen showed no acute findings. Lipase within the normal limits. U tox pending for cannabis. Supportive care. Gentle IV fluids. Zofran p.r.n.. Pepcid b.i.d.. Hypertriglyceridemia: Will start the patient on Lipitor 40 mg and gemfibrozil. Patient recommended to obtain LFTs in a week with the PCP;also recommended to check CPK. DVT prophylaxis: SCD boots Code status: Full code
[2021-03-31] MEDS: Dextrose 5 % and 0.45 % NaCl 1,000 ML 100 ML IVCONT ×2 (01:22→12:32)
[2021-03-31 01:47] LABS: COVID-19 Test Negative (Negative); IDNOW Serial# 9DD0AD1C
--- NOTE | 2021-03-31 03:44 | PC.NURSE ---
PATIENT HAVING AN EPISODE OF INCONTINENCE OF STOOL. PATIENT ASKING FOR CHANGE OF HOSPITAL ATTIRE AND CHANGE IN LINEN. PATIENT NOT WANTING ASSISTANCE FROM STAFF. CALL RUIZ CLOSE INCASE PATIENT NEEDS HELP. COMMODE AT BESIDE.
[2021-03-31 04:25] VITALS: BP 140/71; PULSE 78; RESP 16; O2SAT 98
[2021-03-31 05:44] VITALS: BP 126/78; PULSE 86; RESP 15; O2SAT 92
[2021-03-31 07:06] LABS: MANUAL DIFF FLAG NO
[2021-03-31 07:12] LABS: Basophils Percent Auto 0.2 % (0-2); Eosinophils Absolute Auto 0.3 X10*3/uL (0.0-0.4); Eosinophils Percent Auto 3.9 % (0-4); Hematocrit 46.6 % (42-52); Hemoglobin 15.3 g/dl (14.0-18.0); Imm Gran Abs Auto 0.05 X10*3/uL (0.00-0.03); Imm Gran Pct Auto 0.6 % (0.0-0.4); Lymphocytes Absolute Auto 1.7 X10*3/uL (1.2-4.9); Lymphocytes Percent Auto 19.1 % (20-40); Mean Corpuscular HGB Conc 32.8 g/dl (31.0-36.0); Mean Corpuscular Hemoglobin 26.1 pg (27.0-33.0); Mean Corpuscular Volume 79.5 fL (80-98); Mean Platelet Volume 9.9 fL (9.4-12.4); Monocytes Absolute Auto 0.6 X10*3/uL (0.1-1.2); Monocytes Percent Auto 6.3 % (2-11); Neutrophils Absolute Auto 6.1 X10*3/uL (2.0-8.3); Neutrophils Percent Auto 69.9 % (45-73); Platelet Count 235 X10*3/uL (160-400); Red Blood Count 5.86 X10*6/uL (4.60-5.80); Red Cell Distribution Width 13.6 % (11.0-16.0); White Blood Count 8.7 X10*3/uL (4.8-10.8)
[2021-03-31 07:31] VITALS: BP 120/62; PULSE 76; RESP 17; TEMP 36.9; O2SAT 95
[2021-03-31 07:40] LABS: Magnesium 1.6 mg/dL (1.6-2.6)
[2021-03-31 07:42] LABS: Anion Gap 16 (12-20); Blood Urea Nitrogen 9 mg/dL (9-16); Carbon Dioxide 20 mmol/L (22-29); Chloride 107 mmol/L (96-108); Estimated Glomerular Filt Rate > 60; Glucose Random 115 mg/dL (60-115); Potassium 3.7 mmol/L (3.3-5.1); Sodium 139 mmol/L (135-145)
[2021-03-31 07:50] LABS: Calcium 8.1 mg/dL (8.4-10.2)
[2021-03-31 08:06] LABS: Estimated Average Glucose 169 mg/dL; Hemoglobin A1c % 7.5 %
--- NOTE | 2021-03-31 09:51 | PC.NURSE ---
NURSE TO NURSE GIVEN TO GEREMIAS ([place]), PT AWARE OF PLAN OF CARE FOR ADMISSION TO HOSP.
[2021-03-31] MEDS: 0.9 % Sodium Chloride Flush 3 ML SYRINGE IVFLUSH (10:13)
[2021-03-31] MEDS: Famotidine/PF 20 MG/2 ML VIAL IVPUSH (10:14)
[2021-03-31] MEDS: Magnesium Sulfate/H2O 2 GM/50 ML PIGGYBACK IV (10:20)
--- NOTE | 2021-03-31 11:21 | P.CNGI_ITS ---
History of Present Illness Data of Consult Service Date: 03/31/21 Requesting physician: Garrett Stafford Primary Care Provider: Alejandro Flores [facility] HPI Reason for consult: Nausea and vomiting 30 YM seen at [facility] on 03/30/21 with nausea and vomiting: HPI narrative: 30-year-old male presents with abdominal pain, and intractable nausea and vomiting over the past several weeks. States the pain has come and gone, as well as the nausea and vomiting however has been present almost on a daily basis. Was seen approximately 2 weeks ago for similar circumstances with no significant findings. Patient stated that his difficult time eating and drinking over the past few days. He does not report any chest pain or pressure, palpitations, shortness breath, shortness breath on exertion, abdominal distention, dysuria, hematuria, diarrhea, constipation, melena, hematochezia, loss of balance, weakness, fevers, chills, or any other concerning symptoms. Patient does not report diabetes, also states that he does not drink alcohol on regular basis. MD elicited complaint: abdominal pain Onset (ago): week(s) Course Narrative: 30-year-old male presents with intractable nausea and vomiting and abdominal pain. Was seen here 2 weeks ago with lab values indicating elevated triglycerides at about 840 and a mildly elevated white count. At this time we will order CT scan of abdomen and pelvis with contrast, CBC, Chem 7, lipase, LFTs, and triglycerides. Triglycerides elevated at 940, EKG indicates a prolonged QT interval, lipase 27, CBC unremarkable, chemistries are unremarkable with the exception of an elevated glucose of 133. Patient continues to have intractable nausea and vomiting after a dose of Zofran, did order Benadryl. Discussion with hospitalist for admission for intractable nausea vomiting, elevated triglycerides with a suspicion of pancreatitis although CT scan is negative for this finding. Pt reports having eggs and sausage is for breakfast yesterday morning and then started feeling uncomfortable This was followed by nausea and vomiting and abdominal pain - 4 episodes of vomiting initially containing partially digested food followed by bile. He also noted diarrhea which was self limited. He denies noticing any melena or hematochezia. Patient admits to intermittent symptoms of acid reflux associated with nocturnal regurgitation and denies early satiety, dysphagia, change in appetite or weight Patient reports having similar episodes a year ago and on 03/18/2021 which resolved in 24 hours. He denies history of migraine headaches. Patient denies major cardiac or pulmonary problems. He admits to loud snoring and is planning to ask his PCP to schedule a sleep study Denies problems with anesthesia in the past. Denies being on chronic anticoagulation. His Mom has Migraine MORRELL and Patient denies known family history of colon polyps, colon cancer or other GI malignancies. 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 IMAGING STUDIES: 03/30/[address] SCAN SHOWED: 1. Enlarged fatty liver 2. Tiny benign right renal angiomyolipoma Review of Systems Constitutional: Constitutional: Denies fever(s), Denies headache(s) and Denies weight loss Eyes: Eyes: Denies eye discharge and Denies irritation ENT: Reports Normal hearing present, Denies dysphagia, Denies dizziness and Denies headache(s) Cardiovascular: Cardiovascular: Denies chest pain, Denies leg edema and Denies dyspnea on exertion Respiratory: Respiratory: Denies cough, Denies dyspnea on exertion and Denies wheezing Gastrointestinal: Gastrointestinal: Reports abdominal pain, Denies change in bowel habits, Denies dysphagia, Reports heartburn, Reports diarrhea, Reports nausea and Reports vomiting Genitourinary: Genitourinary: Denies dysuria Musculoskeletal: Musculoskeletal: Denies back pain and Denies arthralgias Integumentary/Breasts: Skin/Breast: Denies pruritus, Denies rash and Denies jaundice Neurologic: Reports Normal hearing present, Denies Abnormal speech present, Denies dizziness, Denies headache(s) and Denies seizure-like activity Psychiatric: Psychiatric: Denies anxiety, Denies depression and Denies panic attacks Endocrine: Endocrine: Denies cold intolerance, Denies flushing and Denies heat intolerance Hematologic/Lymphatic: Hematologic/Lymphatic: Denies easy bleeding and Denies easy bruising Allergic/Immunologic: Allergic/Immunologic: Denies wheezing PMFSH Past Medical History Medical History (Updated 03/31/21 @ 07:48 by Garrett Stafford MD) Hypertension Metabolic syndrome TAPIA (nonalcoholic steatohepatitis) Social History Social History Alcohol intake: never Patient Tobacco Use Status: Never used Tobacco Smoked in Last 30 Days: No Use of substances other than those prescribed or required for medical reasons: No Advance Directives: No Meds Allergies Allergy/AdvReac Type Severity Reaction Status Date / Time No Known Allergies Allergy Verified 03/18/21 01:24 [No Known Allergies*] Pumpkin Flavor Allergy Unknown hives, Uncoded 08/23/19 00:00 nausea/vomiting Active Medications: Current Medications Generic Name Dose Route Start Last Admin Trade Name Freq PRN Reason Stop Dose Admin Atorvastatin Calcium 40 mg 03/31/21 21:00 Atorvastatin Calcium 40 Mg Tablet PO BEDTIME MARYCRUZ Docusate Sodium 100 mg 03/31/21 09:00 03/31/21 10:14 Docusate Sodium 100 Mg Capsule PO Not Given BID MARYCRUZ Famotidine 20 mg 03/31/21 09:00 03/31/21 10:14 Famotidine/Pf 20 Mg/2 Ml Vial IVPUSH 20 mg BID MARYCRUZ Administration Gemfibrozil 600 mg 03/31/21 07:30 Gemfibrozil 600 Mg Tablet PO BIDAC MARYCRUZ Dextrose/Sodium Chloride 1,000 mls @ 100 mls/hr 03/31/21 00:45 03/31/21 01:22 D51/2ns IVCONT 100 mls/hr .Q10H MARYCRUZ Administration Magnesium Hydroxide 30 ml 03/31/21 00:42 Milk Of Magnesia 30 Ml Oral.Susp PO DAILY PRN Constipation Metoclopramide HCl 5 mg 03/31/21 11:30 Metoclopramide Hcl 10 Mg/2 Ml Vial IVPUSH TIDAC MARYCRUZ Sodium Chloride 3 ml 03/31/21 08:00 03/31/21 10:13 0.9 % Sodium Chloride Flush 3 Ml Syringe IVFLUSH 3 ml QSHIFT MARYCRUZ Administration Home Medications Medication Instructions Recorded Confirmed Last Taken Type No Known Home Meds 03/31/21 03/31/21 Unknown History Physical Exam Vital Signs: Vital Signs: Last Vital Signs Temp 98.4 F 03/31/21 07:31 Pulse 76 03/31/21 07:31 Resp 17 03/31/21 07:31 BP 120/62 03/31/21 07:31 Pulse Ox 95 03/31/21 07:31 Body Mass Index 39.5 Const: General: healthy appearing and no acute distress Nutritional Appearance: obese Orientation/consciousness: patient oriented x3 Limitations: no limitations HENMT: Head: Yes normal to inspection Ears: hearing grossly normal bilaterally Mouth: Normal oral and palatal mucosa present Eyes: Sclerae: sclerae normal Pupils: Equal, round and reactive pupils present Neck: Neck: Yes normal visual inspection Chest: Chest palpation & inspection: normal inspection of the chest Resp: Effort & Inspection: normal respiratory effort Auscultation: clear to auscultation bilaterally Cardio: Palpation: normal PMI Rate: regular rate Rhythm: regular rhythm Heart sounds: S1 normal heart sound present, S2 normal heart sound present and no murmurs GI: Palpation (GI): Soft to palpation, nontender and No hepatosplenomegaly present Auscultation: normal bowel sounds Rectal Exam - Male: Yes deferred Skin: General skin exam: no rashes or lesions noted Neuro: General: patient oriented x3, gait normal and moves all extremities Cranial nerves: Yes Equal, round and reactive pupils present and Yes Normal hearing present Speech: No Abnormal speech present Psych: Appearance: grossly normal Mental Status: mental status grossly normal Results Labs CBC & Chem 7: 03/31/21 06:40 03/31/21 06:40 Labs: Short CBC 03/30/21 03/31/21 Range/Units 22:06 06:40 WBC 9.4 8.7 (4.8-10.8) X10*3/uL Hgb 17.1 15.3 (14.0-18.0) g/dl Hct 50.7 46.6 (42-52) % Plt Count 261 235 (160-400) X10*3/uL [facility] 03/30/21 03/31/21 22:06 06:40 Sodium 137 139 Potassium 3.6 3.7 Chloride 104 107 Carbon Dioxide 21 L 20 L BUN 10 9 Creatinine 0.78 0.72 Calcium 9.1 8.1 L D Liver Function 03/30/21 Range/Units 22:06 Total Bilirubin 0.6 (0.0-1.0) mg/dL Direct Bilirubin 0.2 (0.0-0.5) mg/dL AST 31 (5-37) U/L ALT 47 H (0-40) U/L Alkaline Phosphatase 81 (39-117) U/L Albumin 4.1 (3.5-5.0) g/dL Urine 03/30/21 Range/Units 22:22 Urine Color YELLOW Urine Appearance CLEAR Urine pH 6.0 (5.0-8.0) Ur Specific [place] >= 1.030 H (1.005-1.025) Urine Protein 2+ H (NEG-TRACE) MG/DL Urine Glucose (UA) NEG (NEG) MG/DL Assessment and Plan (1) TAPIA (nonalcoholic steatohepatitis): Status: Acute (2) Intractable nausea and vomiting: Status: Acute 30-year-old male with hypertension and hypertriglyceridemia admitted with sudden onset of nausea vomiting, abdominal pain and diarrhea. Patient had similar episodes a year ago and 2 weeks ago which subsided in 24 hours. He feels well in between episodes and denies early satiety. His symptoms are suggestive of cyclic vomiting syndrome. RECOMMENDATIONS: 1. Start patient on a regular diet since he has been tolerating a liquid diet and notes resolution of symptoms. 2. I will schedule the patient for an outpatient gastric emptying study, abdominal ultrasound and upper endoscopy. 3. Patient was advised to start omeprazole 20 mg once daily for acid reflux. Procedures Date of Service Date of Service: 03/31/21
[2021-03-31 11:47] VITALS: BP 137/76; PULSE 50; RESP 20; TEMP 36.2; O2SAT 94
[2021-03-31] MEDS: gemfibroziL 600 MG TABLET PO (11:52)
[2021-03-31] MEDS: Metoclopramide HCl 10 MG/2 ML VIAL 5 MG IVPUSH (11:52)
--- NOTE | 2021-03-31 14:50 | PM.DS ---
DS: Providers Provider Date of Service: 03/31/21 Date of admission: 03/31/21 00:42 Primary care physician: MARTINE Ibrahim Consults: 03/31/21 00:42 Consult to Gastroenterology Routine Consulting Provider: James Maldonado Reason for consultation: Nausea/vomiting DS: Diagnosis Discharge Diagnosis (1) TAPIA (nonalcoholic steatohepatitis): Status: Acute (2) Intractable nausea and vomiting: Status: Acute (3) Metabolic syndrome: Status: Acute (4) Hypertension: Status: Acute (5) High blood triglycerides: Status: Acute DS: Medications Discharge Medications Home Medications: Previous Rx's Medication Instructions Recorded atorvastatin 40 mg PO BEDTIME #30 tab 03/31/21 gemfibrozil 600 mg PO BIDAC #60 tab 03/31/21 metformin 500 mg PO BID #60 tab 03/31/21 DS: Summary Hospital Course Hospital Course: patient was admitted for intractable nausea and vomiting likely due to either cyclic vomiting syndrome or gastroparesis. his symptoms resolved and he was able to tolerate diet. He will follow up with Gastroenterology as outpatient. Patient was noted to have metabolic syndrome, with central obesity, hypertriglyceridemia, diabetes, nonalcoholic fatty liver. He will be started on metformin, Lipitor, gemfibrozil. He states he has had intolerance of statin the past. He should retry atorvastatin and if having issues changed to a different statin. Should also focus on weight loss. Time Spent with Patient Time attestation: Total time spent providing and/or coordinating discharge services: Discharge coordination time: Greater than 30 minutes Quality: Stroke Does the patient have a stroke diagnosis?: No Physical Exam Vital Signs: Vital Signs: Last Vital Signs Temp 97.2 F 03/31/21 11:47 Pulse 50 03/31/21 11:47 Resp 20 03/31/21 11:47 BP 137/76 03/31/21 11:47 Pulse Ox 94 03/31/21 11:47 Body Mass Index 39.5 General: AO X 3, no acute distress Resp: CTA bilateral CVS: S1,S2,RRR GI: soft, non tender, non distended Neuro: motor grossly intact Psych: appropriate affect DS: Data Data Completed and Pending Labs on day of discharge: Laboratory Results - last 24 hr 03/30/21 03/30/21 03/30/21 22:06 22:06 22:06 WBC 9.4 RBC 6.44 H Hgb 17.1 Hct 50.7 MCV 78.7 L MCH 26.6 L MCHC 33.7 RDW 13.7 Plt Count 261 MPV 10.0 Immature Gran % (Auto) 0.7 H Neut % (Auto) 70.9 Lymph % (Auto) 21.3 [place] % (Auto) 5.2 Eos % (Auto) 1.6 Baso % (Auto) 0.3 Lymph # (Auto) 2.0 [place] # (Auto) 0.5 Eos # (Auto) 0.2 Baso # (Auto) 0.0 Abs Immat Gran (auto) 0.07 H Absolute Neuts (auto) 6.6 Absolute Nucleated RBC 0.000 Nucleated RBC % (auto) 0.0 PT INR APTT Sodium 137 Potassium 3.6 Chloride 104 Carbon Dioxide 21 L Anion Gap 16 BUN 10 Creatinine 0.78 Estim Creat Clear Calc 148.7 Estimated GFR > 60 Random Glucose 133 H Estimat Average Glucose Hemoglobin A1c % Lactic Acid Calcium 9.1 Magnesium 1.7 Total Bilirubin 0.6 Direct Bilirubin 0.2 AST 31 ALT 47 H Alkaline Phosphatase 81 Troponin I High Sens < 3.5 Total Protein 8.3 H Albumin 4.1 Triglycerides 939 Lipase 27 Urine Color Urine Appearance Urine pH Ur Specific [place] Urine Protein Urine Glucose (UA) Urine Ketones Urine Blood Urine Nitrite Ur Leukocyte Esterase Urine RBC Urine WBC Ur Squamous Epith Cells Urine Bacteria Hyaline Casts Urine Mucus COVID-19 (SUSAN) COVID-19 Clin Com 03/30/21 03/30/21 03/30/21 22:22 22:59 22:59 WBC RBC Hgb Hct MCV MCH MCHC RDW Plt Count MPV Immature Gran % (Auto) Neut % (Auto) Lymph % (Auto) [place] % (Auto) Eos % (Auto) Baso % (Auto) Lymph # (Auto) [place] # (Auto) Eos # (Auto) Baso # (Auto) Abs Immat Gran (auto) Absolute Neuts (auto) Absolute Nucleated RBC Nucleated RBC % (auto) PT 12.7 INR 1.1 APTT 35.8 Sodium Potassium Chloride Carbon Dioxide Anion Gap BUN Creatinine Estim Creat Clear Calc Estimated GFR Random Glucose Estimat Average Glucose Hemoglobin A1c % Lactic Acid 1.8 Calcium Magnesium Total Bilirubin Direct Bilirubin AST ALT Alkaline Phosphatase Troponin I High Sens Total Protein Albumin Triglycerides Lipase Urine Color YELLOW Urine Appearance CLEAR Urine pH 6.0 Ur Specific [place] >= 1.030 H Urine Protein 2+ H Urine Glucose (UA) NEG Urine Ketones NEG Urine Blood TRACE Urine Nitrite NEG Ur Leukocyte Esterase NEG Urine RBC 1-4 Urine WBC 1-4 Ur Squamous Epith Cells 1+ Urine Bacteria 1+ Hyaline Casts 0-2 Urine Mucus 2+ COVID-19 (SUSAN) COVID-19 Clin Com 03/31/21 03/31/21 03/31/21 01:20 06:40 06:40 WBC 8.7 RBC 5.86 H Hgb 15.3 Hct 46.6 MCV 79.5 L MCH 26.1 L MCHC 32.8 RDW 13.6 Plt Count 235 MPV 9.9 Immature Gran % (Auto) 0.6 H Neut % (Auto) 69.9 Lymph % (Auto) 19.1 L [place] % (Auto) 6.3 Eos % (Auto) 3.9 Baso % (Auto) 0.2 Lymph # (Auto) 1.7 [place] # (Auto) 0.6 Eos # (Auto) 0.3 Baso # (Auto) 0.0 Abs Immat Gran (auto) 0.05 H Absolute Neuts (auto) 6.1 Absolute Nucleated RBC 0.000 Nucleated RBC % (auto) 0.0 PT INR APTT Sodium 139 Potassium 3.7 Chloride 107 Carbon Dioxide 20 L Anion Gap 16 BUN 9 Creatinine 0.72 Estim Creat Clear Calc 161.0 Estimated GFR > 60 Random Glucose 115 Estimat Average Glucose Hemoglobin A1c % Lactic Acid Calcium 8.1 L D Magnesium Total Bilirubin Direct Bilirubin AST ALT Alkaline Phosphatase Troponin I High Sens Total Protein Albumin Triglycerides Lipase Urine Color Urine Appearance Urine pH Ur Specific [place] Urine Protein Urine Glucose (UA) Urine Ketones Urine Blood Urine Nitrite Ur Leukocyte Esterase Urine RBC Urine WBC Ur Squamous Epith Cells Urine Bacteria Hyaline Casts Urine Mucus COVID-19 (SUSAN) Negative COVID-19 Clin Com See Note 03/31/21 03/31/21 06:40 06:40 WBC RBC Hgb Hct MCV MCH MCHC RDW Plt Count MPV Immature Gran % (Auto) Neut % (Auto) Lymph % (Auto) [place] % (Auto) Eos % (Auto) Baso % (Auto) Lymph # (Auto) [place] # (Auto) Eos # (Auto) Baso # (Auto) Abs Immat Gran (auto) Absolute Neuts (auto) Absolute Nucleated RBC Nucleated RBC % (auto) PT INR APTT Sodium Potassium Chloride Carbon Dioxide Anion Gap BUN Creatinine Estim Creat Clear Calc Estimated GFR Random Glucose Estimat Average Glucose 169 Hemoglobin A1c % 7.5 Lactic Acid Calcium Magnesium 1.6 Total Bilirubin Direct Bilirubin AST ALT Alkaline Phosphatase Troponin I High Sens Total Protein Albumin Triglycerides Lipase Urine Color Urine Appearance Urine pH Ur Specific [place] Urine Protein Urine Glucose (UA) Urine Ketones Urine Blood Urine Nitrite Ur Leukocyte Esterase Urine RBC Urine WBC Ur Squamous Epith Cells Urine Bacteria Hyaline Casts Urine Mucus COVID-19 (SUSAN) COVID-19 Clin Com Discharge Plan Discharge Patient Disposition: Home, Self-Care Discharge Diagnosis: DM, cycliv vomitting, metabolic syndrome, hypertryglycerides, fatty liver Referrals: Alejandro Flores, [employer] BUSINESS ANALYST-BC [Primary Care Provider] - 1 Week Discharge Medications: New atorvastatin 40 mg Tablet 40 mg PO BEDTIME Qty: 30 RF: 0 gemfibrozil 600 mg Tablet 600 mg PO BIDAC Qty: 60 RF: 0 metformin 500 mg tablet 500 mg PO BID Qty: 60 RF: 0 Discharge Orders: Discharge Order (Routine); Ordered 03/31/21 Ordered By: Garrett Stafford Diet: diabetic diet Activity on Discharge: As tolerated Stand Alone Forms: Patient Portal Discharge page Care Plan Goals: manage metabolic syndrome Health Concerns: metabolic syndrome Plan of Treatment: start cholesterol medications and if having side effects discuss with pcp about changing to different medication, start metformin, weight loss Assessment: see above
[2021-03-31 15:27] VITALS: BP 142/90; PULSE 94; RESP 18; TEMP 36.4; O2SAT 95
== END 2021-03-31 15:45 | disposition home or self-care (01) ==
LOC: HO.ED 03-31 00:06 → HO.EDOVER 03-31 03:03 → HO.IMC 03-31 06:51
PROVIDERS: Nurse Practitioner Family; Admitting Provider Hospitalist; Emergency Provider Emergency Medicine; PCP Nurse Practitioner Family; Visit Provider Internal Medicine
DX: K75.81 Nonalcoholic steatohepatitis (NASH) (principal); R11.2 Nausea with vomiting, unspecified; R19.7 Diarrhea, unspecified; E88.81 Metabolic syndrome and other insulin resistance; K85.90 Acute pancreatitis without necrosis or infection, unspecified; I10 Essential (primary) hypertension; E78.1 Pure hyperglyceridemia; R10.9 Unspecified abdominal pain; R94.31 Abnormal electrocardiogram [ECG] [EKG]; Z20.822 Contact with and (suspected) exposure to COVID-19; Z91.02 Food additives allergy status; Z79.84 Long term (current) use of oral hypoglycemic drugs; Z79.899 Other long term (current) drug therapy
CPT/HCPCS: 36415; 71045; 74177; 80048; 80053; 80076; 81001; 83036; 83605; 83690; 83735; 84478; 84484; 85025; 85610; 85730; 87040; 87635; 93005; 96361; 96365; 96366; 96368; 96374; 96375; 99219; 99285; 99291; J1200; J2270; J2405; J2765; J3475; Q9967

== ENCOUNTER 2021-04-09 11:25 | Outpatient (REF) | payer BC, SELFPAY ==
--- NOTE | ~2021-04-09 | US_ITS ---
EXAMINATION: US ABDOMEN COMPLETE CLINICAL INFORMATION: Nausea with vomiting, unspecified. COMPARISON: CT abdomen and pelvis 03/30/2021. Renal ultrasound 02/16/2019. Ultrasound abdomen complete 12/01/2017. TECHNIQUE: Real-time imaging of the abdominal viscera. FINDINGS: PANCREAS: Not well visualized due to bowel gas ABDOMINAL AORTA: The proximal, mid, and distal segments are normal in caliber. INFERIOR VENA CAVA: Visualized portions are normal. LIVER: The liver is normal in size. The liver contour is normal. Liver echotexture is increased probably representing fatty infiltration.There are hypoechoic areas adjacent to the gallbladder, characteristic location of focal fatty sparing. No other focal hepatic lesion. There is no intrahepatic biliary duct dilatation seen. GALLBLADDER: Normal. The gallbladder is physiologically distended without evidence of stones, sludge, polyps, wall thickening or pericholecystic fluid. COMMON BILE DUCT: Normal in caliber measuring 0.5 cm in diameter. RIGHT KIDNEY: Normal. No hydronephrosis. No renal calculi or focal parenchymal lesions. The kidney measures 13.3 cm in maximum dimension. LEFT KIDNEY: Normal. No hydronephrosis. No renal calculi or focal parenchymal lesions. The kidney measures 11.1 cm in maximum dimension. SPLEEN: Normal. The spleen measures 11.0 cm in maximum dimension. FREE FLUID: None. US/US abdomen complete IMPRESSION: Fatty liver. Normal-appearing gallbladder. No gallstone seen. Limited visualization of the pancreas.
== END 2021-04-09 11:26 | disposition home or self-care (01) ==
LOC: HO.US 11:25
PROVIDERS: Visit Provider Internal Medicine Gastroenterology
DX: R11.2 Nausea with vomiting, unspecified (principal)
CPT/HCPCS: 76700

== ENCOUNTER 2021-04-12 12:58 | Day surgery (SDC) | payer BC, SELFPAY ==
--- NOTE | 2021-04-12 13:15 | HO.ANESPROP2 ---
[facility] Active Problems Active Problems: All Active Problems (Updated 04/03/21 @ 16:43 by Alejandro Flores, [facility]) Encounter for physical examination (Acute) Sleep apnea (Acute) Diabetes (Acute) Metabolic syndrome (Acute) TAPIA (nonalcoholic steatohepatitis) (Acute) Hypertension (Acute) High blood triglycerides (Acute) Intractable nausea and vomiting (Acute) Past Medical History Medical History Hypertension Metabolic syndrome TAPIA (nonalcoholic steatohepatitis) Social History Social History Housing: House Alcohol intake: never Patient Tobacco Use Status: Former Tobacco user Years Smoked: 2 years Second Hand Smoke Exposure: No Advance Directives: No Advance Directives Information Provided: Yes Current occupational status: employed Current occupation: [employer] Allergies Allergy/AdvReac Type Severity Reaction Status Date / Time No Known Allergies Allergy Verified 04/12/21 13:10 [No Known Allergies*] Exam Exam Date and Time: April 12, 2021 1315 Airway Mallampati Class: III TM Dist: >3cm Neck ROM: Full
[2021-04-12 13:22] VITALS: BP 140/95; PULSE 104; RESP 18; TEMP 36.8; O2SAT 96; BMI 38.6
[2021-04-12 13:22] LABS: Glucose, Whole Blood 87 mg/dL (60-115)
--- NOTE | 2021-04-12 13:28 | P.OP_ITS ---
Operative Note Operative Note Date of Service: 04/12/21 Narrative: Pre-op diagnosis: Intermittent episodes of nausea and vomiting felt to be due to cyclic vomiting syndrome Post-op diagnosis: other (Gastritis, duodenal ulcers) Procedure: FLEXIBLE TRANSORAL UPPER GASTROINTESTINAL ENDOSCOPY WITH BIOPSIES Consent: Indications for the procedure and potential complications of bleeding, perforation, reaction to medications and missed diagnosis were discussed with the patient and informed consent was obtained. Instrument: Olympus GIF H 190 mid size upper endoscope Monitoring: Vital signs and clinical assessment, continuous EKG monitoring, Pulse oximetry, Carbon Dioxide monitoring and blood pressure monitoring were done throughout the procedure. Procedure: The patient was placed in the left lateral decubitis position and pre-procedure medications were administered and a bite block was placed. The endoscope was inserted into the mouth and advanced under direct vision to the third part of duodenum. A careful inspection was made as the upper endoscope was withdrawn including a retroflexed examination of the proximal stomach; Findings and interventions are described below. Findings: Larynx: Normal Esophagus: GE junction at 38 cms. No esophagitis or [place] Stomach: Moderate diffuse gastric erythema. Biopsies were obtained. Grade 2 flap valve on retroflexed examination of the cardia. Duodenum: A 2 cms ulcer with white exudate in the posterior wall of the apex of the bulb. Multiple 3-5 mm ulcers at the apex of bulb/proximal descending duodenum. Biopsies were obtained from 3rd part of the duodenum to check for celiac sprue. Intervention: Biopsies as noted above Impression and Post Procedure Diagnosis: Endoscopy Findings: STOMACH: Gastritis DUODENUM: A 2 cms ulcer with white exudate in the posterior wall of the apex of the bulb (likely due to NSAIDS). Multiple 3-5 mm ulcers at the apex of bulb/proximal descending duodenum. Biopsies were obtained from 3rd part of the duodenum to check for celiac sprue. Patient admitted to taking ibuprofen for headaches. Plan: Await pathology results Patient has an appointment on 04/15/21 in the GI Clinic with Christiano Berry . Above findings were reviewed with the patient and handout on PUD was given in the discharge area Surgeon: Yosi Vallejo MD Anesthesia: MAC (Rochelle Stewart CRNA) Was an Power Project Manager used for this Procedure?: Yes Power Project Manager: Aishwarya Broussard Estimated blood loss (mL): 0 Pathology: other (A- SMALL BOWEL BIOPSIES B- GASTRIC ANTRUM) Condition: stable Disposition: PACU
--- NOTE | 2021-04-12 13:28 | MHC.SHP ---
Pre-Procedural Eval Section A Date of Service: 04/12/21 The patient is an INPATIENT: No Changes since office visit: Yes Patient answered all questions; No Cold of Flu in the past 2 weeks, No New Medical Problems and No Changes in Medication The History & Physical has been completed within 30 days and I have reviewed it.: Yes Section B Chief Complaint: Nausea with Vomiting Allergies: Allergies Allergy/AdvReac Type Severity Reaction Status Date / Time No Known Allergies Allergy Verified 04/12/21 13:10 [No Known Allergies*] Plan I have reviewed the history and physical and performed a pertinent physical examination on my patient. No changes have occurred unless specified.
[2021-04-12 14:51] VITALS: BP 142/83; PULSE 109; RESP 14; TEMP 37.1; O2SAT 97
[2021-04-12 15:06] VITALS: BP 146/92; PULSE 105; RESP 14; TEMP 37.1; O2SAT 95
== END 2021-04-12 15:44 | disposition home or self-care (01) ==
PROVIDERS: PCP Nurse Practitioner Family; Visit Provider Internal Medicine Gastroenterology
PROC: 0DJ08ZZ Inspection of Upper Intestinal Tract, Via Natural or Artificial Opening Endoscopic (ICD-10-PCS; CPT 43235; principal; 2021-04-12 15:10)
DX: K29.50 Unspecified chronic gastritis without bleeding (principal); K26.9 Duodenal ulcer, unspecified as acute or chronic, without hemorrhage or perforation; I10 Essential (primary) hypertension; E88.81 Metabolic syndrome and other insulin resistance; K75.81 Nonalcoholic steatohepatitis (NASH); Z87.891 Personal history of nicotine dependence
CPT/HCPCS: 43239; 82947; 88305; 88342

== ENCOUNTER → 2022-01-23 10:41 | Outpatient (BNVA) | payer OTHER, SELFPAY | PROVIDERS: PCP Nurse Practitioner Family; Referring Provider Nurse Practitioner Family; Visit Provider Nurse Practitioner Family | DX: Z13.89 Encounter for screening for other disorder (principal) ==

== ENCOUNTER → 2022-02-18 13:43 | Outpatient (REF) | payer OTHER, SELFPAY | LOC: HO.SL 13:43 | PROVIDERS: PCP Nurse Practitioner Family; Visit Provider Nurse Practitioner Family | DX: G47.33 Obstructive sleep apnea (adult) (pediatric) (principal); G47.19 Other hypersomnia; R06.83 Snoring; I10 Essential (primary) hypertension | CPT/HCPCS: 95806 ==

== ENCOUNTER 2022-05-24 06:40 | Outpatient (REF) | payer OTHER, SELFPAY ==
[2022-05-24 11:05] LABS: MANUAL DIFF FLAG NO
[2022-05-24 11:14] LABS: Basophils Absolute Auto 0.1 X10*3/uL (0.0-0.2); Eosinophils Absolute Auto 0.2 X10*3/uL (0.0-0.4); Eosinophils Percent Auto 3.1 % (0-4); Hematocrit 46.3 % (42.0-52.0); Hemoglobin 15.4 g/dl (14.0-18.0); Imm Gran Abs Auto 0.04 X10*3/uL (0.00-0.03); Imm Gran Pct Auto 0.7 % (0.0-0.4); Lymphocytes Absolute Auto 1.9 X10*3/uL (1.2-4.9); Lymphocytes Percent Auto 32.9 % (20-40); Mean Corpuscular HGB Conc 33.3 g/dl (31.0-36.0); Mean Corpuscular Hemoglobin 26.5 pg (27.0-33.0); Mean Corpuscular Volume 79.6 fL (80.0-98.0); Mean Platelet Volume 11.6 fL (9.4-12.4); Monocytes Absolute Auto 0.4 X10*3/uL (0.1-1.2); Monocytes Percent Auto 6.4 % (2-11); Neutrophils Absolute Auto 3.2 x10*3/uL (2.0-8.3); Neutrophils Percent Auto 55.9 % (45-73); Platelet Count 228 X10*3/uL (160-400); Red Blood Count 5.82 X10*6/uL (4.60-5.80); Red Cell Distribution Width 13.5 % (11.0-16.0); White Blood Count 5.8 X10*3/uL (4.8-10.8)
[2022-05-24 11:15] LABS: Appearance Urine HAZY; Color Urine YELLOW; Glucose Urine UA NEG (NEG); Leukocyte Esterase Urine NEG (NEG); Nitrite Urine NEG (NEG); Specific Gravity - Urine 1.025 (1.005-1.025); UACC Culture Trigger NO; Urine Blood TRACE (NEG); Urine Ketones NEG (NEG); Urine Protein TRACE MG/DL (NEG-TRACE)
[2022-05-24 11:21] LABS: Creatinine Urine 131.84 mg/dL; Microalbum/Creatinine Ratio Ur 93.2 ug/mg cr
[2022-05-24 11:28] LABS: Estimated Average Glucose 171 mg/dL; Hemoglobin A1c % 7.6 %
[2022-05-24 11:30] LABS: Alanine Aminotransferase 44 U/L (0-40); Alkaline Phosphatase 77 U/L (39-117); Anion Gap 12 (12-20); Aspartate Amino Transferase 31 U/L (5-37); Bilirubin Total 0.4 mg/dL (0.0-1.0); Blood Urea Nitrogen 11 mg/dL (9-16); Calcium 8.7 mg/dL (8.4-10.2); Carbon Dioxide 24 mmol/L (22-29); Chloride 104 mmol/L (96-108); Cholesterol 219 mg/dL; Estimated Glomerular Filt Rate > 60; Glucose Fasting 128 mg/dL (60-99); HDL Cholesterol 23 mg/dL; Potassium 4.2 mmol/L (3.3-5.1); Sodium 136 mmol/L (135-145); Total Protein 8.4 g/dL (6.5-8.0); Triglycerides 1014 mg/dL
[2022-05-24 11:39] LABS: TSH reflex Free T4 2.42 uIU/mL (0.32-4.0)
[2022-05-24 11:43] LABS: RBC Urine 0-2 /HPF (0); WBC Urine 0 /HPF (0-4)
[2022-05-24 11:44] LABS: Amorphous Sediment Urine 2+ /LPF
== END 2022-05-24 06:41 | disposition home or self-care (01) ==
LOC: HO.HMGCLDS 06:40
PROVIDERS: PCP Nurse Practitioner Family; Visit Provider Nurse Practitioner Family
DX: Z00.00 Encounter for general adult medical examination without abnormal findings (principal); E11.9 Type 2 diabetes mellitus without complications
CPT/HCPCS: 36415; 80053; 80061; 81001; 82043; 83036; 84443; 85025

== ENCOUNTER 2022-05-27 23:52 | Emergency (ER) | payer OTHER, SELFPAY ==
--- NOTE | ~2022-05-27 | CT_ITS ---
EXAMINATION: CT ABDOMEN AND PELVIS WITHOUT CONTRAST CLINICAL INFORMATION: Right upper quadrant pain COMPARISON: 03/30/2021 TECHNIQUE: Multidetector volumetric imaging was performed from the superior aspect of the liver through the pubic symphysis. Sagittal and coronal reformatted images were obtained on the technologist's workstation. This CT examination was performed using dose optimization techniques as appropriate, variously including the following: *Automated exposure control *Adjustment of mA and/or kV according to patient size (this includes techniques or standardized protocols for targeted exams where dose is matched to indication/reason for exam; i.e. extremities or head) *Use of iterative reconstruction technique DLP: 702 mGy-cm FINDINGS: LUNG BASES: The visualized lung bases are unremarkable. LIVER, GALLBLADDER, AND BILIARY TREE: The liver is enlarged measuring 23 cm in CC dimension. Normal shape with decreased attenuation. No focal hepatic lesion or biliary ductal dilatation is present. The gallbladder is unremarkable with no evidence of radiopaque gallstones, gallbladder wall thickening, or obvious pericholecystic inflammatory changes. PANCREAS: Unremarkable. SPLEEN: Unremarkable. ADRENAL GLANDS: Unremarkable. KIDNEYS AND URETERS: The kidneys are normal in size, shape, and attenuation. No hydronephrosis, hydroureter, or calculi seen. No perinephric stranding. BLADDER: Unremarkable. GASTROINTESTINAL TRACT: The small and large bowel are unremarkable. The appendix is unremarkable. ABDOMINAL WALL: No significant hernia is appreciated. LYMPH NODES: Normal. VASCULAR: Unremarkable. PELVIC VISCERA: The prostate and seminal vesicles are unremarkable. OSSEOUS STRUCTURES: No acute or suspicious osseous abnormality. CT/CT abdomen pelvis wo con IMPRESSION: Hepatomegaly with hepatic steatosis. No acute abnormality of the abdomen or pelvis. Fleischner guidelines were followed.
[2022-05-27 23:59] VITALS: BP 133/89; PULSE 89; RESP 18; TEMP 36.7; O2SAT 95; BMI 39.4
[2022-05-28 00:16] LABS: MANUAL DIFF FLAG NO
[2022-05-28 00:18] LABS: Basophils Percent Auto 0.3 % (0-2); Eosinophils Percent Auto 0.4 % (0-4); Imm Gran Abs Auto 0.04 X10*3/uL (0.00-0.03); Imm Gran Pct Auto 0.4 % (0.0-0.4); Lymphocytes Absolute Auto 1.5 X10*3/uL (1.2-4.9); Lymphocytes Percent Auto 13.9 % (20-40); Mean Corpuscular HGB Conc 33.3 g/dl (31.0-36.0); Mean Corpuscular Volume 77.9 fL (80.0-98.0); Mean Platelet Volume 9.5 fL (9.4-12.4); Monocytes Absolute Auto 0.5 X10*3/uL (0.1-1.2); Neutrophils Absolute Auto 8.4 x10*3/uL (2.0-8.3); Platelet Count 245 X10*3/uL (160-400); Red Blood Count 6.16 X10*6/uL (4.60-5.80); Red Cell Distribution Width 13.5 % (11.0-16.0); White Blood Count 10.5 X10*3/uL (4.8-10.8)
[2022-05-28 00:39] LABS: Alanine Aminotransferase 51 U/L (0-40); Albumin Level 4.2 g/dL (3.5-5.0); Alkaline Phosphatase 80 U/L (39-117); Anion Gap 16 (12-20); Aspartate Amino Transferase 32 U/L (5-37); Bilirubin Direct 0.2 mg/dL (0.0-0.5); Bilirubin Total 0.5 mg/dL (0.0-1.0); Blood Urea Nitrogen 14 mg/dL (9-16); Calcium 9.1 mg/dL (8.4-10.2); Carbon Dioxide 23 mmol/L (22-29); Chloride 102 mmol/L (96-108); Creatinine Clr Calc Pharmacy 136.6; Estimated Glomerular Filt Rate > 60; Glucose Random 190 mg/dL (60-115); Lipase 32 U/L (8-78); Potassium 3.9 mmol/L (3.3-5.1); Sodium 137 mmol/L (135-145); Total Protein 8.5 g/dL (6.5-8.0)
[2022-05-28 00:44] LABS: COVID-19 Test Negative (Negative)
[2022-05-28] MEDS: ondansetron HCL 4 MG/2 ML VIAL IVPUSH (01:06)
[2022-05-28] MEDS: 0.9 % Sodium Chloride 1,000 ML 999 ML IV (01:07)
[2022-05-28] MEDS: Magnesium Hydrox/Alum Hydrox 30 ML ORAL.SUSP PO (01:07)
[2022-05-28] MEDS: PHENobarb/Hyoscy/Atropine/Scop 10 ML ELIXIR PO (01:07)
--- NOTE | 2022-05-28 01:10 | ED_ITS ---
HPI - Abdominal Pain General Chief Complaint: Abdominal Pain Stated Complaint: nausea vomiting diarrhea Time Seen by Provider: 05/28/22 00:45 Source: patient Mode of arrival: ambulatory Limitations: no limitations History of Present Illness HPI narrative: 31-year-old male with a history significant for gastroenteritis presents to the ED with a complaint of severe abdominal pain, nausea, vomiting and diarrhea for the past 9 hours. Patient tells me that he woke up this morning with mild abdominal pain and nausea. His abdominal pain is diffuse however worse in the epigastric region. This worsened at 16:30 when he began of vomiting. He states that every time he eats he vomits. He tried taking Zofran which provided him relief for approximately 30 minutes. Patient tells me that his metformin was increased from 500 to a 1000 mg and today is the 1st time that he has taken this dose. Denies fever, chills, chest pain, shortness of breath, constipation, rectal bleeding, marijuanna use Related Data Previous Rx's Medication Instructions Recorded blood sugar diagnostic (FreeStyle #100 ea 04/01/21 Lite Strips) blood-glucose meter (FreeStyle #1 ea 04/01/21 Lite Meter kit) blood-glucose meter (OneTouch #1 ea 04/01/21 Ultra2 Meter kit) lancets 28 gauge (FreeStyle #100 ea 04/01/21 Lancets) lancets 30 gauge (OneTouch Delica See Rx Instructions .Route BID for 04/23/21 Plus Lancet) diabetes mellitus #100 caps blood sugar diagnostic #100 ea 08/05/21 gemfibrozil 600 mg tablet 600 mg PO BIDAC #60 tabs 08/05/21 metformin 1,000 mg tablet 1,000 mg PO BID 90 days #180 tabs 05/26/22 omega-3 acid ethyl esters 1 gram 2 cap PO BID 30 days #120 caps 05/26/22 capsule loperamide 2 mg capsule 2 mg PO Q6H PRN loose stool #20 05/28/22 caps ondansetron 4 mg disintegrating 4 mg PO Q6H PRN nausea and 05/28/22 tablet vomiting #14 tabs Allergies Allergy/AdvReac Type Severity Reaction Status Date / Time No Known Allergies Allergy Verified 05/22/22 14:08 [No Known Allergies*] Review of Systems Review of Systems Constitutional : No Weight loss, No Fever, No Chills, No Fatigue, No Malaise ENT/Mouth : No sore throat, No Rhinorrhea Eyes: No Eye Pain, No Swelling, No Redness Cardiovascular : No Chest Pain, No SOB, No Dyspnea on Exertion, No Orthopnea, No Edema, No Palpitations Respiratory : No Cough, No Sputum, No Wheezing Gastrointestinal : + Nausea, + Vomiting, + Diarrhea, No Constipation, + abdominal Pain, No Hematochezia, No Melena Genitourinary : No Dysuria, No Urinary Frequency, No Hematuria, Musculoskeletal : No joint pain, No Myalgias, No Joint Swelling Skin : No Skin Lesions, No rash Neuro : No Weakness, No Numbness, No Dizziness, No Headache All other systems reviewed and are negative Yes all other systems are reviewed and are negative [facility] Past Medical History Attestation statement: The following information was validated with the patient. Source: old records reviewed and nursing notes reviewed Medical History Hypertension Metabolic syndrome TAPIA (nonalcoholic steatohepatitis) Surgical History History of surgery on lower extremity Family History Family History Mother Sleep apnea Sister Mental health disorder Social History Social History Housing: House Alcohol intake: current Alcohol intake frequency: holidays/special occasions only Patient Tobacco Use Status: Former Tobacco user Years Smoked: 2 years e-Cigarette/Vaping Use: Never Used Second Hand Smoke Exposure: No Advance Directives: No Advance Directives Information Provided: Yes Current occupational status: employed Current occupation: [employer] Current occupational exposures/hazards: No Cognitive needs: No Hearing needs: No Vision needs: No Physical Exam ED Vital Signs: Vital Signs - 24 hr 05/27/22 23:59 05/28/22 02:00 Temperature 98.1 F 98.8 F Pulse Rate 89 81 Respiratory Rate 18 16 Blood Pressure 133/89 114/76 Pulse Oximetry 95 95 Oxygen Delivery Method Room Air Room Air BMI result Body Mass Index 39.4 VSS Appearance: Alert.? Oriented X3.? No acute distress.? Head: Normocephalic, atraumatic, no step-offs or deformities Eyes: Pupils equal, round and reactive to light.? Neck: Normal inspection.? Neck supple.? CVS: Normal heart rate and rhythm.? Pulses normal.? Respiratory: No respiratory distress.? Breath sounds normal.? Abdomen: Soft, diffusely TTP worse in the epigastric region. Active BS throughout.? Skin: Skin warm and dry.? Normal skin color.? Normal skin turgor.? Extremities: No lower extremity edema.? No calf ttp. 5/5 strength to bilateral upper and lower extremities Neuro: Oriented X 3.? No motor deficit.? No sensory deficit. Course Reevaluation(s) Reevaluation #1: CBC appears to be around patient's baseline. Chemistry with no acute electrolyte abnormalities requiring intervention, lipase normal, unlikely pancreatitis. COVID negative. No acute findings in abdomen or pelvis. Time: 02:12 Reevaluation #2: Upon re-evaluation patient is no longer tender to palpation on exam. Patient tells me he is feeling much better and does not need morphine for pain. At this time patient tolerating p.o. fluids and Jell-O. Patient tells me he is feeling back to normal. At this time he will be discharged home PCP and GI follow-up. Comfortable with discharge home. Pending urine Time: 02:20 Reevaluation #3: UA clean MDM - Abdominal Pain MDM Narrative Medical decision making narrative: 1000 31-year-old male history of gastroenteritis presents with diffuse abdominal pain, nausea, vomiting, diarrhea x9 hours. Has a history of gastroenteritis. Denies fever, chills, hematemesis, rectal bleeding. Physical exam significant for diffusely tender abdomen worse in the epigastric region. Active bowel sounds throughout. Likely gastroenteritis. Unlikely appendicitis, cholecystitis, pancreatitis, or acute abdomen Plan at this time is to order basic labs, CT abdomen and pelvis, UA. Medical Records Attestation: I reviewed the patient's medical records. Lab Data Attestation: I reviewed the patient's lab results. Result diagrams: 05/28/22 00:10 05/28/22 00:10 Labs: Lab Results 05/28/22 05/28/22 05/28/22 Range/Units 00:10 00:10 00:10 WBC 10.5 (4.8-10.8) X10*3/uL RBC 6.16 H (4.60-5.80) X10*6/uL Hgb 16.0 (14.0-18.0) g/dl Hct 48.0 (42.0-52.0) % MCV 77.9 L (80.0-98.0) fL MCH 26.0 L (27.0-33.0) pg MCHC 33.3 (31.0-36.0) g/dl RDW 13.5 (11.0-16.0) % Plt Count 245 (160-400) X10*3/uL MPV 9.5 (9.4-12.4) fL Immature Gran % (Auto) 0.4 (0.0-0.4) % Neut % (Auto) 80.0 H (45-73) % Lymph % (Auto) 13.9 L (20-40) % [place] % (Auto) 5.0 (2-11) % Eos % (Auto) 0.4 (0-4) % Baso % (Auto) 0.3 (0-2) % Lymph # (Auto) 1.5 (1.2-4.9) X10*3/uL [place] # (Auto) 0.5 (0.1-1.2) X10*3/uL Eos # (Auto) 0.0 (0.0-0.4) X10*3/uL Baso # (Auto) 0.0 (0.0-0.2) X10*3/uL Abs Immat Gran (auto) 0.04 H (0.00-0.03) X10*3/uL Absolute Neuts (auto) 8.4 H (2.0-8.3) x10*3/uL Absolute Nucleated RBC 0.000 (0.0-0.012) X10*3/uL Nucleated RBC % (auto) 0.0 (0.0-0.2) /100WBC Sodium 137 (135-145) mmol/L Potassium 3.9 (3.3-5.1) mmol/L Chloride 102 (96-108) mmol/L Carbon Dioxide 23 (22-29) mmol/L Anion Gap 16 (12-20) BUN 14 (9-16) mg/dL Creatinine 0.84 (0.5-1.4) mg/dL Estim Creat Clear Calc 136.6 Estimated GFR > 60 Random Glucose 190 H D (60-115) mg/dL Calcium 9.1 (8.4-10.2) mg/dL Total Bilirubin 0.5 (0.0-1.0) mg/dL Direct Bilirubin 0.2 (0.0-0.5) mg/dL AST 32 (5-37) U/L ALT 51 H (0-40) U/L Alkaline Phosphatase 80 (39-117) U/L Total Protein 8.5 H (6.5-8.0) g/dL Albumin 4.2 (3.5-5.0) g/dL Lipase 32 (8-78) U/L Urine Color Urine Appearance Urine pH (5.0-8.0) Ur Specific Walters (1.005-1.025) Urine Protein (NEG-TRACE) MG/DL Urine Glucose (UA) (NEG) MG/DL Urine Ketones (NEG) MG/DL Urine Blood (NEG) Urine Nitrite (NEG) Ur Leukocyte Esterase (NEG) COVID-19 (SUSAN) Negative (Negative) COVID-19 Clin Com See Note 05/28/22 Range/Units 02:45 WBC (4.8-10.8) X10*3/uL RBC (4.60-5.80) X10*6/uL Hgb (14.0-18.0) g/dl Hct (42.0-52.0) % MCV (80.0-98.0) fL MCH (27.0-33.0) pg MCHC (31.0-36.0) g/dl RDW (11.0-16.0) % Plt Count (160-400) X10*3/uL MPV (9.4-12.4) fL Immature Gran % (Auto) (0.0-0.4) % Neut % (Auto) (45-73) % Lymph % (Auto) (20-40) % [place] % (Auto) (2-11) % Eos % (Auto) (0-4) % Baso % (Auto) (0-2) % Lymph # (Auto) (1.2-4.9) X10*3/uL [place] # (Auto) (0.1-1.2) X10*3/uL Eos # (Auto) (0.0-0.4) X10*3/uL Baso # (Auto) (0.0-0.2) X10*3/uL Abs Immat Gran (auto) (0.00-0.03) X10*3/uL Absolute Neuts (auto) (2.0-8.3) x10*3/uL Absolute Nucleated RBC (0.0-0.012) X10*3/uL Nucleated RBC % (auto) (0.0-0.2) /100WBC Sodium (135-145) mmol/L Potassium (3.3-5.1) mmol/L Chloride (96-108) mmol/L Carbon Dioxide (22-29) mmol/L Anion Gap (12-20) BUN (9-16) mg/dL Creatinine (0.5-1.4) mg/dL Estim Creat Clear Calc Estimated GFR Random Glucose (60-115) mg/dL Calcium (8.4-10.2) mg/dL Total Bilirubin (0.0-1.0) mg/dL Direct Bilirubin (0.0-0.5) mg/dL AST (5-37) U/L ALT (0-40) U/L Alkaline Phosphatase (39-117) U/L Total Protein (6.5-8.0) g/dL Albumin (3.5-5.0) g/dL Lipase (8-78) U/L Urine Color YELLOW Urine Appearance CLEAR Urine pH 6.0 (5.0-8.0) Ur Specific Walters 1.025 (1.005-1.025) Urine Protein TRACE (NEG-TRACE) MG/DL Urine Glucose (UA) NEG (NEG) MG/DL Urine Ketones 5 (NEG) MG/DL Urine Blood TRACE (NEG) Urine Nitrite NEG (NEG) Ur Leukocyte Esterase NEG (NEG) COVID-19 (SUSAN) (Negative) COVID-19 Clin Com Critical Care Time Critical Care Time Critical Care Time: No Discharge Plan Discharge Clinical Impression: Viral infection, Diarrhea, Nausea Patient Disposition: Home, Self-Care Instructions: Diet for Stomach Ulcers and Gastritis (ED), Acute Nausea and Vomiting (ED), Acute Diarrhea (ED), Viral Syndrome (ED) Additional Instructions: Take your medications as prescribed. If you were prescribed antibiotics today, it is important that you take your medication to their entirety, do not skip any doses, do not finish them early. Follow-up with your primary care provider this week. Return to the emergency department with new or worsening symptoms. Such as fevers, chills, chest pain, shortness of breath, nausea, vomiting, dizziness, headache, vision changes, lethargy In case of emergency call 911 Prescriptions: New ondansetron 4 mg tablet,disintegrating 4 mg PO Q6H PRN (Reason: nausea and vomiting) Qty: 14 0RF loperamide 2 mg capsule 2 mg PO Q6H PRN (Reason: loose stool) Qty: 20 0RF No Action (DME) blood-glucose meter [FreeStyle Lite Meter] Kit See Rx Instructions .ROUTE .MEDSUPPLY Qty: 1 0RF Rx Instructions: check glucose BID (DME) FreeStyle Lite Strips Strip See Rx Instructions .ROUTE .MEDSUPPLY Qty: 100 0RF Rx Instructions: test BID (DME) lancets [FreeStyle Lancets] 28 gauge misc See Rx Instructions .ROUTE .MEDSUPPLY Qty: 100 0RF Rx Instructions: test BID (DME) blood-glucose meter [OneTouch Ultra2 Meter] Kit See Rx Instructions .ROUTE .MEDSUPPLY Qty: 1 0RF Rx Instructions: pt to test BID lancets [OneTouch Delica Plus Lancet] 30 gauge misc See Rx Instructions .ROUTE BID Qty: 100 0RF Rx Instructions: 2 times a day; (DME) OneTouch Ultra Blue Test Strip Strip See Rx Instructions .ROUTE .MEDSUPPLY Qty: 100 1RF Rx Instructions: test BID gemfibrozil 600 mg tablet 600 mg PO BIDAC Qty: 60 0RF metformin 1,000 mg tablet 1,000 mg PO BID 90 Days Qty: 180 0RF omega-3 acid ethyl esters 1 gram capsule 2 cap PO BID 30 Days Qty: 120 3RF Referrals: Alejandro Flores FNP-GARY [Primary Care Provider] - 2 days Donna Mukherjee MD [Physician] - 3 days Stand Alone Forms: Work/School Release Interventions: ED Discharge Assessment Last Done: 05/28/22 02:54 Discharge Date/Time: 05/28/22 02:54
[2022-05-28 02:00] VITALS: BP 114/76; PULSE 81; RESP 16; TEMP 37.1; O2SAT 95
[2022-05-28] MEDS: Loperamide HCl 2 MG CAPSULE PO (02:50)
[2022-05-28 02:52] LABS: Appearance Urine CLEAR; Color Urine YELLOW; Glucose Urine UA NEG (NEG); Leukocyte Esterase Urine NEG (NEG); Nitrite Urine NEG (NEG); Specific Gravity - Urine 1.025 (1.005-1.025); UACC Culture Trigger NO; Urine Blood TRACE (NEG); Urine Ketones 5 MG/DL (NEG); Urine Protein TRACE MG/DL (NEG-TRACE)
[2022-05-28 03:06] LABS: Mucus Urine 1+ /LPF; RBC Urine 0-2 /HPF (0); WBC Urine 0-2 /HPF (0-4)
== END 2022-05-28 02:54 | disposition home or self-care (01) ==
PROVIDERS: Physician Assistant; Emergency Provider Emergency Medicine; PCP Nurse Practitioner Family
DX: B34.9 Viral infection, unspecified (principal); R19.7 Diarrhea, unspecified; R11.0 Nausea; R10.13 Epigastric pain; Z20.822 Contact with and (suspected) exposure to COVID-19; E11.9 Type 2 diabetes mellitus without complications; I10 Essential (primary) hypertension; K75.81 Nonalcoholic steatohepatitis (NASH); Z87.891 Personal history of nicotine dependence; Z79.84 Long term (current) use of oral hypoglycemic drugs
CPT/HCPCS: 74176; 80053; 81001; 82248; 83690; 85025; 87635; 96361; 96374; 99284; 99285; J2405

== ENCOUNTER 2022-05-29 07:28 | Outpatient (AMB) | payer OTHER, SELFPAY ==
--- NOTE | 2022-05-29 07:40 | A.OFFVIS_ITS ---
Vital Signs 05/29/22 07:44 Height 5 ft 4 in Weight 228 lb BMI 39.1 BP 114/63 Blood Pressure Location Lt brachial Position Sitting Pulse 74 Intake Visit Reasons: ED follow up/ diarrhea Intake Note: New consult from ED for diarrhea. 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 Patient tells me that he woke up this morning with mild abdominal pain and nausea.? His abdominal pain is diffuse however worse in the epigastric region.? This worsened at 16:30 when he began of vomiting.? He states that every time he eats he vomits.? He tried taking Zofran which provided him relief for approximately 30 minutes.? Patient tells me that his metformin was increased from 500 to a 1000 mg and today is the 1st time that he has taken this dose.? Denies fever, chills, chest pain, shortness of breath, constipation, rectal bleeding, marijuanna use 31-year-old male history of gastroenteritis presents with diffuse abdominal pain, nausea, vomiting, diarrhea x9 hours.? Has a history of gastroenteritis.? Denies fever, chills, hematemesis, rectal bleeding. Physical exam significant for diffusely tender abdomen worse in the epigastric region.? Active bowel sounds throughout. Likely gastroenteritis.? Unlikely appendicitis, cholecystitis, pancreatitis, or acute abdomen Plan at this time is to order basic labs, CT abdomen and pelvis, UA. Pt was discharged on Ondansetron and loperamide. LABS IN [facility] : Reviewed IMAGING STUDIES: 05/28/[address] SCAN SHOWED: Hepatomegaly with hepatic steatosis. ?No acute abnormality of the abdomen or pelvis.? ? ENDOSCOPIC STUDIES: 03/2021 EGD SHOWED: STOMACH:? Gastritis - Biopsies were negative for H Pylori DUODENUM: A 2 cms ulcer with white exudate in the posterior wall of the apex of the bulb (likely due to NSAIDS).? Multiple 3-5 mm ulcers at the apex of bulb/proximal descending duodenum.? Biopsies were obtained from 3rd part of the duodenum to check for celiac sprue. Patient admitted to taking ibuprofen for headaches. Plan: Above findings were reviewed with the patient and handout on PUD was given in the discharge area BIOPSIES SHOWED: A. Small bowel, biopsy: Duodenal mucosa with mildly increased intraepithelial lymphocytes and preserved villous architecture. See comment. B. Stomach, antrum, biopsy: Antral- type mucosa with moderate chronic inactive inflammation; no Helicobacter organisms seen TODAY'S VISIT: Accompanied by his SO Feels better - diarrhea and nausea has resolved. Abd sore from vomiting. Symptoms started after he took 1st dose of 1000 mg Metformin (increased from 500 mg) Has decreased dose of metformin back to 500 mg twice daily. Intermittent episodes of nausea and vomiting - usually once a year. Episodes last for a day and then resolve with IV fluids and anti-emetics. Sometimes he can have mild nausea Sometimes no precipitating factors. Denies early satiety. Denies personal or FH of Migraine HAs. Patient denies symptoms of heartburn, dysphagia, nausea, vomiting, change in appetite or weight. Denies recent change in bowel habits, constipation, diarrhea, black stools or rectal bleeding. Patient denies major cardiac or pulmonary problems, loud snoring or sleep apnea Denies problems with anesthesia in the past. Denies being on chronic anticoagulation. Patient denies known family history of colon polyps, colon cancer or other GI malignancies. PAST EGD/COLONOSCOPY PAST GI HISTORY BY REVIEW OF MEDICAL RECORDS: 03/2021 PATIENT WAS SE[place]URING [place] [facility] [place] AND VOMITING: (1) TAPIA (nonalcoholic steatohepatitis): ?Status:?Acute (2) Intractable nausea and vomiting: ?Status:?Acute ? ? ? 30-year-old male with hypertension and hypertriglyceridemia admitted with sudden onset of nausea vomiting, abdominal pain and diarrhea.? Patient had similar episodes a year ago and 2 weeks ago which subsided in 24 hours. He feels well in between episodes and denies early satiety.? His symptoms are suggestive of cyclic vomiting syndrome. RECOMMENDATIONS: 1.? Start patient on a regular diet since he has been tolerating a liquid diet and notes resolution of symptoms. 2. I will schedule the patient for an outpatient gastric emptying study, abdominal ultrasound and upper endoscopy. 3.? Patient was advised to start omeprazole 20 mg once daily for acid reflux.? ON LICENSE OF [facility] Medical History Fatty liver Metabolic syndrome TAPIA (nonalcoholic steatohepatitis) Hypertension Surgical History History of surgery on lower extremity Family History Mother Sleep apnea Sister Mental health disorder Social History Housing: House Are you a primary student career development specialist to a significant other at home: No Alcohol intake: current Alcohol intake frequency: holidays/special occasions only Patient Tobacco Use Status: Former Tobacco user Tobacco use type: Cigarette Years Smoked: 2 years e-Cigarette/Vaping Use: Never Used Second Hand Smoke Exposure: No Current occupational status: employed Current occupation: [employer] Current occupational exposures/hazards: No Cognitive needs: No Hearing needs: No Vision needs: No Review of Systems Const Denies fever(s), Denies headache(s) and Denies weight loss Eyes Denies eye discharge and Denies irritation ENT Reports Normal hearing present, Denies dysphagia, Denies dizziness and Denies headache(s) Card Denies chest pain, Denies leg edema and Denies dyspnea on exertion Resp Denies cough, Denies dyspnea on exertion and Denies wheezing GI Reports abdominal pain, Denies change in bowel habits, Denies dysphagia, Denies heartburn, Reports diarrhea, Reports nausea and Reports vomiting Denies dysuria Musc Denies back pain and Denies arthralgias Skin/Breast Denies pruritus, Denies rash and Denies jaundice Neuro Reports Normal hearing present, Denies Abnormal speech present, Denies dizziness, Denies headache(s) and Denies seizure-like activity Psych Denies anxiety, Denies depression and Denies panic attacks Endo Denies cold intolerance, Denies flushing and Denies heat intolerance Kevin/Lymph Denies easy bleeding and Denies easy bruising Aller/Immun Denies wheezing Physical Exam Vital Signs: Last Vital Signs Pulse 74 05/29/22 07:44 BP 114/63 05/29/22 07:44 BMI result Body Mass Index 39.1 Const General: healthy appearing and no acute distress Nutritional Appearance: obese Orientation/consciousness: patient oriented x3 Limitations: no limitations HEENT Head: Yes normal to inspection Ears: hearing grossly normal bilaterally Mouth: Normal oral and palatal mucosa present Eyes Sclerae: sclerae normal Pupils: Equal, round and reactive pupils present Neck Neck: Yes normal visual inspection Chest Chest palpation & inspection: normal inspection of the chest Resp Effort & Inspection: normal respiratory effort Auscultation: clear to auscultation bilaterally Cardio Palpation: normal PMI Rate: regular rate Rhythm: regular rhythm Heart sounds: S1 normal heart sound present, S2 normal heart sound present and no murmurs GI Palpation (GI): Soft to palpation, nontender and No hepatosplenomegaly present Auscultation: normal bowel sounds Rectal Exam - Male: Yes deferred Skin General skin exam: no rashes or lesions noted Neuro General: patient oriented x3, gait normal and moves all extremities Cranial nerves: Yes Equal, round and reactive pupils present and Yes Normal hearing present Speech: No Abnormal speech present Psych Appearance: grossly normal Mental Status: mental status grossly normal Assessment & Plan Assessment & Plan (1) Intractable nausea and vomiting: Code(s): R11.2 - Nausea with vomiting, unspecified Category: Medical (2) TAPIA (nonalcoholic steatohepatitis): Code(s): K75.81 - Nonalcoholic steatohepatitis (TAPIA) Category: Medical Plan 30-year-old male with hypertension and hypertriglyceridemia [place] [facility] [place] sudden onset of nausea vomiting, abdominal pain and diarrhea.? EGD showed a duodenal ulcer. Gastric biopsies were negative for H Pylori Pt was advised to continue omeprazole 20 mg daily and schedule a gastric emptying study FU in 4 months Orders: Orders NM gastric emptying study 05/29/22 R11.2 - Nausea with vomiting, unspecified, K75.81 - Nonalcoholic steatohepatitis (TAPIA)
[2022-05-29 07:44] VITALS: BP 114/63; PULSE 74; BMI 39.1
== END 2022-05-29 08:23 | disposition home or self-care (01) ==
LOC: HO.HGI 07:28
PROVIDERS: PCP Nurse Practitioner Family; Referring Provider Nurse Practitioner Family; Visit Provider Internal Medicine Gastroenterology
DX: R11.2 Nausea with vomiting, unspecified (principal); K75.81 Nonalcoholic steatohepatitis (NASH)
CPT/HCPCS: 99499

== ENCOUNTER → 2022-06-13 07:22 | Outpatient (REF) | payer OTHER, SELFPAY ==
--- NOTE | ~2022-06-13 | NM_ITS ---
EXAMINATION: RADIONUCLIDE SOLID FOOD GASTRIC EMPTYING 4-HOUR STUDY CLINICAL INFORMATION: Nausea with vomiting. COMPARISON: No previous gastric emptying study is available for comparison. TECHNIQUE: A standard meal consisting of 4 oz of Egg Beaters brand equivalent tagged with 1 mCi Tc-99m Sulfur Colloid, 8 oz water and 2 slices of toast with jelly was administered orally to the patient. Images were obtained using a dual head gamma camera in the anterior and posterior projections over of the stomach immediately post ingestion and at hourly intervals up to 4 hours post ingestion. The anterior and posterior counts at each time interval were averaged using the geometric mean and expressed as percentage of the immediate post ingestion counts. FINDINGS: There is good visualization of activity in the stomach immediately post ingestion. As the study progresses, there is good clearance of activity from the stomach and visualization of progressively increasing small bowel activity. By the end of the study, there is almost no retention noted in the stomach. Retention in the stomach at each time interval was: 1 hour 92% (normal 37%-90%) 2 hours 66% (normal 30%-60%) 3 hours 25% 4 hours 8% (normal 0%-10%) NM/NM gastric emptying study IMPRESSION: Normal 4-hour solid food gastric emptying study.
== END ==
LOC: HO.NUCMED 07:22
PROVIDERS: PCP Nurse Practitioner Family; Visit Provider Internal Medicine Gastroenterology
DX: R11.2 Nausea with vomiting, unspecified (principal); K75.81 Nonalcoholic steatohepatitis (NASH)
CPT/HCPCS: 78264; A9541

== ENCOUNTER 2022-08-11 20:27 | Emergency (ER) | payer OTHER, SELFPAY | END 2022-08-11 23:34 | disposition left against medical advice (07) | PROVIDERS: Emergency Provider Emergency Medicine; PCP Nurse Practitioner Family | DX: R11.2 Nausea with vomiting, unspecified (principal); R10.9 Unspecified abdominal pain; I10 Essential (primary) hypertension; E11.9 Type 2 diabetes mellitus without complications ==

== ENCOUNTER 2022-08-23 07:51 | Outpatient (REF) | payer OTHER, SELFPAY ==
[2022-08-23 09:13] LABS: Alanine Aminotransferase 47 U/L (0-40); Albumin Level 4.1 g/dL (3.5-5.0); Alkaline Phosphatase 79 U/L (39-117); Anion Gap 15 (12-20); Aspartate Amino Transferase 27 U/L (5-37); Bilirubin Total 0.6 mg/dL (0.0-1.0); Blood Urea Nitrogen 10 mg/dL (9-16); Carbon Dioxide 23 mmol/L (22-29); Chloride 104 mmol/L (96-108); Cholesterol 143 mg/dL; Estimated Glomerular Filt Rate > 60; Glucose Fasting 90 mg/dL (60-99); HDL Cholesterol 31 mg/dL; LDL Cholesterol Calculated 44 mg/dl; Potassium 4.2 mmol/L (3.3-5.1); Sodium 138 mmol/L (135-145); Total Protein 8.2 g/dL (6.5-8.0); Triglycerides 344 mg/dL
== END 2022-08-23 07:52 | disposition home or self-care (01) ==
LOC: HO.LAB 07:51
PROVIDERS: PCP Nurse Practitioner Family; Visit Provider Nurse Practitioner Family
DX: E78.1 Pure hyperglyceridemia (principal); K75.81 Nonalcoholic steatohepatitis (NASH)
CPT/HCPCS: 36415; 80053; 80061

== ENCOUNTER 2023-04-04 07:15 | Outpatient (REF) | payer OTHER, SELFPAY ==
[2023-04-04 07:58] LABS: MANUAL DIFF FLAG NO
[2023-04-04 08:09] LABS: Basophils Absolute Auto 0.1 X10*3/uL (0.0-0.2); Basophils Percent Auto 1.1 % (0-2); Eosinophils Absolute Auto 0.2 X10*3/uL (0.0-0.4); Eosinophils Percent Auto 3.5 % (0-4); Hematocrit 53.4 % (42.0-52.0); Hemoglobin 17.6 g/dl (14.0-18.0); Imm Gran Abs Auto 0.04 X10*3/uL (0.00-0.03); Imm Gran Pct Auto 0.6 % (0.0-0.4); Lymphocytes Absolute Auto 2.2 X10*3/uL (1.2-4.9); Lymphocytes Percent Auto 35.5 % (20-40); Mean Corpuscular Hemoglobin 25.9 pg (27.0-33.0); Mean Corpuscular Volume 78.5 fL (80.0-98.0); Mean Platelet Volume 9.4 fL (9.4-12.4); Monocytes Absolute Auto 0.5 X10*3/uL (0.1-1.2); Monocytes Percent Auto 7.3 % (2-11); Neutrophils Absolute Auto 3.3 x10*3/uL (2.0-8.3); Platelet Count 217 X10*3/uL (160-400); Red Cell Distribution Width 14.9 % (11.0-16.0); White Blood Count 6.3 X10*3/uL (4.8-10.8)
[2023-04-04 08:41] LABS: Alanine Aminotransferase 74 U/L (0-40); Albumin Level 4.1 g/dL (3.5-5.0); Alkaline Phosphatase 68 U/L (39-117); Anion Gap 14 (12-20); Aspartate Amino Transferase 52 U/L (5-37); Bilirubin Total 0.7 mg/dL (0.0-1.0); Blood Urea Nitrogen 8 mg/dL (9-16); Calcium 9.8 mg/dL (8.4-10.2); Carbon Dioxide 23 mmol/L (22-29); Chloride 105 mmol/L (96-108); Cholesterol 239 mg/dL; Estimated Glomerular Filt Rate > 60; Glucose Fasting 102 mg/dL (60-99); HDL Cholesterol 25 mg/dL; Sodium 138 mmol/L (135-145); Total Protein 8.8 g/dL (6.5-8.0); Triglycerides 794 mg/dL
[2023-04-04 08:58] LABS: TSH reflex Free T4 1.79 uIU/mL (0.32-4.0)
[2023-04-04 09:41] LABS: Urine Cytology See Pathology rpt
[2023-04-04 09:47] LABS: Appearance Urine Clear; Color Urine Yellow; Glucose Urine UA Negative (Negative); Leukocyte Esterase Urine Negative (Negative); Nitrite Urine Negative (Negative); UMIC TRIGGER UA YES; UMIC TRIGGER UACC YES; Urine Blood Negative (Negative); Urine Ketones Negative (Negative); Urine Protein 30 (1+) mg/dL (Neg-Trace)
[2023-04-04 09:51] LABS: Bacteria Urine None Seen (None Seen); Hyaline Casts Urine 0-2 /LPF (0-2); RBC Urine 0-2 /HPF (0-2); Squamous Epithelial Cell Urine 0-2 /HPF (0-2); WBC Urine 0-5 /HPF (0-5)
== END 2023-04-04 07:16 | disposition home or self-care (01) ==
LOC: HO.LAB 07:15
PROVIDERS: PCP Nurse Practitioner Family; Visit Provider Nurse Practitioner Family
DX: E11.9 Type 2 diabetes mellitus without complications (principal); R31.29 Other microscopic hematuria; Z00.00 Encounter for general adult medical examination without abnormal findings
CPT/HCPCS: 36415; 80053; 80061; 81001; 84443; 85025; 87086; 88112

== ENCOUNTER 2023-07-08 06:08 | Outpatient (REF) | payer OTHER, SELFPAY ==
[2023-07-08 06:17] LABS: MANUAL DIFF FLAG NO
[2023-07-08 07:53] LABS: Basophils Absolute Auto 0.1 X10*3/uL (0.0-0.2); Basophils Percent Auto 1.2 % (0-2); Eosinophils Absolute Auto 0.2 X10*3/uL (0.0-0.4); Eosinophils Percent Auto 3.4 % (0-4); Hemoglobin 18.1 g/dl (14.0-18.0); Imm Gran Abs Auto 0.03 X10*3/uL (0.00-0.03); Imm Gran Pct Auto 0.5 % (0.0-0.4); Lymphocytes Absolute Auto 1.9 X10*3/uL (1.2-4.9); Lymphocytes Percent Auto 33.8 % (20-40); Mean Corpuscular HGB Conc 32.8 g/dl (31.0-36.0); Mean Corpuscular Hemoglobin 26.7 pg (27.0-33.0); Mean Corpuscular Volume 81.4 fL (80.0-98.0); Mean Platelet Volume 10.8 fL (9.4-12.4); Monocytes Absolute Auto 0.5 X10*3/uL (0.1-1.2); Neutrophils Percent Auto 53.1 % (45-73); Platelet Count 236 X10*3/uL (160-400); Red Blood Count 6.77 X10*6/uL (4.60-5.80); Red Cell Distribution Width 14.4 % (11.0-16.0); White Blood Count 5.6 X10*3/uL (4.8-10.8)
[2023-07-08 07:54] LABS: Estimated Average Glucose 157 mg/dL; Hemoglobin A1c % 7.1 % (<6.0)
[2023-07-08 08:00] LABS: Alanine Aminotransferase 88 U/L (0-40); Albumin Level 4.2 g/dL (3.5-5.0); Alkaline Phosphatase 89 U/L (39-117); Anion Gap 14 (12-20); Aspartate Amino Transferase 72 U/L (5-37); Bilirubin Total 0.3 mg/dL (0.0-1.0); Blood Urea Nitrogen 6 mg/dL (9-16); Calcium 9.6 mg/dL (8.4-10.2); Carbon Dioxide 24 mmol/L (22-29); Chloride 105 mmol/L (96-108); Cholesterol 214 mg/dL (<200); Estimated Glomerular Filt Rate > 60; Glucose Fasting 148 mg/dL (60-99); HDL Cholesterol 25 mg/dL (>40); Potassium 4.3 mmol/L (3.3-5.1); Sodium 139 mmol/L (135-145); Total Protein 9.6 g/dL (6.5-8.0); Triglycerides 1149 mg/dL (<150)
[2023-07-08 08:12] LABS: TSH reflex Free T4 2.12 uIU/mL (0.32-4.0)
[2023-07-08 08:19] LABS: Hematocrit 55.1 % (42.0-52.0)
[2023-07-08 09:18] LABS: Appearance Urine Clear; Color Urine Dark Yellow; Glucose Urine UA Negative (Negative); Leukocyte Esterase Urine Negative (Negative); Nitrite Urine Negative (Negative); Specific Gravity - Urine >= 1.030 (1.005-1.025); UMIC TRIGGER UACC YES; Urine Blood Negative (Negative); Urine Ketones Trace mg/dL (Negative); Urine Protein 100 (2+) mg/dL (Neg-Trace)
[2023-07-08 09:30] LABS: Bacteria Urine None Seen (None Seen); Hyaline Casts Urine 0-2 /LPF (0-2); Squamous Epithelial Cell Urine 0-2 /HPF (0-2); WBC Urine 0-5 /HPF (0-5)
[2023-07-08 11:15] LABS: Microalbum/Creatinine Ratio Ur 192.1 ug/mg cr (<30)
== END 2023-07-08 06:09 | disposition home or self-care (01) ==
LOC: HO.LAB 06:08
PROVIDERS: PCP Nurse Practitioner Family; Visit Provider Nurse Practitioner Family
DX: E11.9 Type 2 diabetes mellitus without complications (principal)
CPT/HCPCS: 36415; 80053; 80061; 81001; 82043; 82570; 83036; 84443; 85025

== ENCOUNTER → 2023-07-13 14:55 | Outpatient (BNV) | payer OTHER, SELFPAY | PROVIDERS: PCP Nurse Practitioner Family; Visit Provider Internal Medicine | DX: D58.2 Other hemoglobinopathies (principal) | CPT/HCPCS: 99204 ==

== ENCOUNTER 2023-07-29 06:14 | Emergency (ER) | payer OTHER, SELFPAY ==
[2023-07-29 06:30] VITALS: BP 132/82; PULSE 91; RESP 18; TEMP 36.7; O2SAT 97; BMI 37.8
[2023-07-29 06:43] VITALS: BP 127/76; PULSE 87; RESP 17; TEMP 36.7; O2SAT 98
--- NOTE | 2023-07-29 07:24 | ED.ABDPAIN ---
HPI - Abdominal Pain General Chief Complaint: Abdominal Pain Stated Complaint: Vomiting Time Seen by Provider: 07/29/23 06:43 Source: patient Mode of arrival: ambulatory Limitations: no limitations History of Present Illness HPI narrative: Is a 32-year-old male history of dyslipidemia, obstructive sleep apnea, microalbuminuria, diabetes, metabolic syndrome, nonalcoholic hepatic steatosis, hypertension, presenting to the emergency department for evaluation of nausea, vomiting, abdominal pain for the past 2 days. Patient reports abdominal pain is localized in the epigastric and left upper quadrant region, happened sporadically, however at this point he does report a constant discomfort with intermittent episodes of worsening pain. Patient states he has been dry heaving a lot this morning. He reports last time he felt like this he was noted to have high triglycerides. Denies fevers, chills, hematemesis, chest pain, shortness of breath, headache, vision changes, recent sick contacts, travel, sedentary lifestyle. Related Data Previous Rx's Medication Instructions Recorded blood sugar diagnostic (FreeStyle #100 ea 04/01/21 Lite Strips) blood-glucose meter (FreeStyle #1 ea 04/01/21 Lite Meter kit) blood-glucose meter (OneTouch #1 ea 04/01/21 Ultra2 Meter kit) lancets 28 gauge (FreeStyle #100 ea 04/01/21 Lancets) lancets 30 gauge (OneTouch Delica See Rx Instructions .Route BID for 04/23/21 Plus Lancet) diabetes mellitus #100 caps blood sugar diagnostic #100 ea 08/05/21 omega-3 acid ethyl esters 1 gram 2 cap PO BID 30 days #120 caps 05/26/22 capsule losartan 25 mg tablet 25 mg PO DAILY 90 days #90 tabs 04/01/23 evolocumab 140 mg/mL subcutaneous 140 mg subcut Q2W #2 mL 07/08/23 pen injector (Terry Cooper) fenofibric acid (choline) 45 mg 135 mg (3 x 45 mg) PO BEDTIME 90 07/13/23 capsule,delayed release days #270 caps rosuvastatin 5 mg tablet 5 mg PO BEDTIME 30 days #30 tabs 07/13/23 ondansetron 4 mg disintegrating 4 mg PO Q6H PRN nausea and 07/29/23 tablet vomiting #14 tabs Allergies Allergy/AdvReac Type Severity Reaction Status Date / Time lisinopril AdvReac Intermediate Cough Verified 07/13/23 15:22 Review of Systems Review of Systems Constitutional : No Weight loss, No Fever, No Chills, No Fatigue, No Malaise ENT/Mouth : No sore throat, No Rhinorrhea Eyes: No Eye Pain, No Swelling, No Redness Cardiovascular : No Chest Pain, No SOB, No Dyspnea on Exertion, No Orthopnea, No Edema, No Palpitations Respiratory : No Cough, No Sputum, No Wheezing Gastrointestinal : + Nausea, + Vomiting, + Diarrhea, No Constipation, + abdominal Pain, No Hematochezia, No Melena Genitourinary : No Dysuria, No Urinary Frequency, No Hematuria, Musculoskeletal : No joint pain, No Myalgias, No Joint Swelling Skin : No Skin Lesions, No rash Neuro : No Weakness, No Numbness, No Dizziness, No Headache Psych : No Anxiety/Panic, No Depression All other systems reviewed and are negative Yes all other systems are reviewed and are negative [facility] Past Medical History Attestation statement: The following information was validated with the patient. Source: old records reviewed and nursing notes reviewed Medical History Fatty liver Hypertension Metabolic syndrome TAPIA (nonalcoholic steatohepatitis) Surgical History History of surgery on lower extremity Family History Family History Mother Sleep apnea Sister Mental health disorder Social History Social History Housing: House Are you a primary medicare sales representative to a significant other at home: No Alcohol intake: current Alcohol intake frequency: holidays/special occasions only Patient Tobacco Use Status: Former Tobacco user Tobacco use type: Cigarette Years Smoked: 2 years Smoked in Last 30 Days: No e-Cigarette/Vaping Use: Never Used Second Hand Smoke Exposure: No Use of substances other than those prescribed or required for medical reasons: No Advance Directives: No Current occupational status: employed Current occupation: [employer] Current occupational exposures/hazards: No Cognitive needs: No Hearing needs: No Vision needs: No Physical Exam ED Vital Signs: Vital Signs - 24 hr 07/29/23 06:30 07/29/23 06:43 07/29/23 09:13 Temperature 98.1 F 98.0 F 98.0 F Pulse Rate 91 87 83 Respiratory Rate 18 17 16 Blood Pressure 132/82 127/76 131/83 Pulse Oximetry 97 98 97 Oxygen Delivery Method Room Air Room Air Room Air BMI result Body Mass Index 37.8 vss Appearance: Alert.? Oriented X3.? No acute distress.? Head: Normocephalic, atraumatic, no step-offs or deformities Eyes: Pupils equal, round and reactive to light.? CVS: Normal heart rate and rhythm.? Pulses normal.? Respiratory: No respiratory distress.? Breath sounds normal.? Abdomen: Soft and Epigastric and LUQ TTP. Normal BS throughout. .? Skin: Skin warm and dry.? Normal skin color.? Normal skin turgor.? Extremities: No lower extremity edema.? No calf ttp. 5/5 strength to bilateral upper and lower extremities Back: No midline tenderness, no C-spine tenderness, full range of motion, no CVA tenderness bilaterally Neuro: Oriented X 3.? No motor deficit.? No sensory deficit. CN 2-12 intact Course Reevaluation(s) Reevaluation #1: CBC appears to be around patient's baseline with hemo concentration, this is not an acute finding but dehydration could be a factor. Chemistry unremarkable. Transaminases slightly bumped however not impressive, triglycerides elevated at 524 within normal lipase unlikely hypertriglyceridemia pancreatitis, patient is noted to have high triglycerides at baseline and this is actually better than his baseline. Urine clean. CT abdomen pelvis pending. Time: 08:53 Reevaluation #2: CT abdomen pelvis with no acute intra-abdominal process seen. Mild hepatomegaly unchanged from previous scan, small bilateral upper pole renal cysts visualized. These findings were discussed with the patient, who upon reassessment states he is feeling much better. States his abdominal pain has resolved, is now endorsing an appetite. This is likely intractable vomiting vs viral illness causing dehydration. Repleting with IV fluids now, and education provided regarding importance of increasing oral intake of fluids. Plan to discharge patient home to self care with supportive measures and increased fluid intake once IVFs complete, patient agreeable to plan. Patient informed of red flag warning symptoms to return. Time: 10:43 Medical Decision Making Medical Decision Making [facility] Narrative: 0700 32 yo m presents w/ N/V/D & abd pain X 2 days hx of pancreatitis w/ similar presentation PE- Epigastric and LUQ TTP. Normal BS throughout. Concerns for viral illness vs gasterenteritis vs diabetic gastroparesis vs pancreatitis which is most likely. Other differentials which are less likely dumping syndrome, cholecystitis, appendicitis, diverticulitis, cyclic vomiting, sbo, lbo, acute abdomen, DKA, cdiff. No signs of UGIB Plan- labs, antiemetics, urine, fluids. Differential Diagnosis Differential Diagnoses: The differential diagnosis associated with the presentation includes Concerns for viral illness vs gasterenteritis vs diabetic gastroparesis vs pancreatitis which is most likely. Other differentials which are less likely dumping syndrome, cholecystitis, appendicitis, diverticulitis, cyclic vomiting, sbo, lbo, acute abdomen, DKA, cdiff. No signs of UGIB Lab Data [facility] Lab Attestation statement: I reviewed the patient's lab results. 07/29/23 07:33 07/29/23 07:33 Labs: Lab Results 07/29/23 Range/Units 07:33 WBC 8.0 (4.8-10.8) X10*3/uL RBC 6.80 H (4.60-5.80) X10*6/uL Hgb 18.1 H (14.0-18.0) g/dl Hct 54.8 H (42.0-52.0) % MCV 80.6 (80.0-98.0) fL MCH 26.6 L (27.0-33.0) pg MCHC 33.0 (31.0-36.0) g/dl RDW 14.5 (11.0-16.0) % Plt Count 247 (160-400) X10*3/uL MPV 9.8 (9.4-12.4) fL Immature Gran % (Auto) 0.4 (0.0-0.4) % Neut % (Auto) 80.4 H (45-73) % Lymph % (Auto) 13.1 L (20-40) % [place] % (Auto) 5.0 (2-11) % Eos % (Auto) 0.8 (0-4) % Baso % (Auto) 0.3 (0-2) % Lymph # (Auto) 1.1 L (1.2-4.9) X10*3/uL [place] # (Auto) 0.4 (0.1-1.2) X10*3/uL Eos # (Auto) 0.1 (0.0-0.4) X10*3/uL Baso # (Auto) 0.0 (0.0-0.2) X10*3/uL Abs Immat Gran (auto) 0.03 (0.00-0.03) X10*3/uL Absolute Neuts (auto) 6.4 (2.0-8.3) x10*3/uL Absolute Nucleated RBC 0.000 (0.0-0.012) X10*3/uL Nucleated RBC % (auto) 0.0 (0.0-0.2) /100WBC Sodium 138 (135-145) mmol/L Potassium 4.2 (3.3-5.1) mmol/L Chloride 106 (96-108) mmol/L Carbon Dioxide 20 L (22-29) mmol/L Anion Gap 16 (12-20) BUN 7 L (9-16) mg/dL Creatinine 0.81 (0.5-1.4) mg/dL Estim Creat Clear Calc 137.1 Estimated GFR > 60 Random Glucose 139 H (60-115) mg/dL Calcium 9.7 (8.4-10.2) mg/dL Total Bilirubin 0.4 (0.0-1.0) mg/dL AST 39 H (5-37) U/L ALT 56 H (0-40) U/L Alkaline Phosphatase 78 (39-117) U/L Total Protein 9.3 H (6.5-8.0) g/dL Albumin 4.3 (3.5-5.0) g/dL Triglycerides 524 H (<150) mg/dL Lipase 27 (8-78) U/L Urine Color Yellow Urine Appearance Clear Urine pH 6.0 (5.0-9.0) Ur Specific [place] >= 1.030 H (1.005-1.025) Urine Protein 100 (2+) H (Neg-Trace) mg/dL Urine Glucose (UA) Negative (Negative) mg/dL Urine Ketones Negative (Negative) mg/dL Urine Blood Negative (Negative) Urine Nitrite Negative (Negative) Ur Leukocyte Esterase Negative (Negative) Urine RBC 0-2 (0-2) /HPF Urine WBC 0-5 (0-5) /HPF Ur Squamous Epith Cells 0-2 (0-2) /HPF Urine Bacteria None Seen (None Seen) Hyaline Casts 0-2 (0-2) /LPF COVID-19 (SUSAN) Negative (Negative) COVID-19 Clin Com See Note Independent Interpretation I performed an independent interpretation of an: CT Scan (CT/CT abdomen pelvis w IV con IMPRESSION: No acute intra-abdominal process seen. Mild hepatomegaly unchanged. Small bilateral upper pole renal cysts. Fleischner guidelines were followed.) Radiology Impression Discussion of test interpretation with radiology: I have reviewed the radiologist's reading. Chronic Conditions Patient?s care impacted by: Diabetes, Hypertension and Other (YENI) Medications Administered Discontinued Medications Generic Name Dose Route Start Last Admin Trade Name Freq PRN Reason Stop Dose Admin Sodium Chloride 1,000 mls @ 999 mls/hr 07/29/23 08:00 07/29/23 10:02 Ns IV 07/29/23 09:00 Infused .Q1H1M MARYCRUZ Infusion Iohexol 100 ml 07/29/23 08:31 07/29/23 08:31 Iohexol 350 Mg/Ml 100 Ml Infus..Btl IV 07/29/23 08:32 85 ml ONCE ONE Administration Ondansetron HCl 4 mg 07/29/23 07:54 07/29/23 07:59 Ondansetron Hcl 4 Mg/2 Ml Vial IVPUSH 07/29/23 07:55 Not Given ONCE ONE Critical Care Time Critical Care Time Critical Care Time: No Discharge Plan Discharge Clinical Impression: Abdominal pain, Nausea & vomiting, Diarrhea, Dehydration, Hypertriglyceridemia Patient Disposition: Home, Self-Care Instructions: Low Fat Diet (ED), Heart Healthy Diet (ED), Acute Nausea and Vomiting (ED), Acute Diarrhea (ED), Abdominal Pain (ED) Additional Instructions: Take your medications as prescribed. If you were prescribed antibiotics today, it is important that you take your medication to their entirety, do not skip any doses, do not finish them early. Follow-up with your primary care provider this week. Return to the emergency department with new or worsening symptoms. Such as fevers, chills, chest pain, shortness of breath, nausea, vomiting, dizziness, headache, vision changes, lethargy In case of emergency call 911 Please drink plenty of fluids. Your glucose for today's visit was 139, your triglycerides today were noted to be 524. Please drink plenty of fluids. Your noted to have elevated hemoglobin, hematocrit as well as red blood cells, please follow-up with your PCP in regards to these findings. CT/CT abdomen pelvis w IV con IMPRESSION: No acute intra-abdominal process seen. Mild hepatomegaly unchanged. Small bilateral upper pole renal cysts. Fleischner guidelines were followed. Prescriptions: New ondansetron 4 mg tablet,disintegrating 4 mg PO Q6H PRN (Reason: nausea and vomiting) Qty: 14 0RF No Action (DME) blood-glucose meter [FreeStyle Lite Meter] Kit See Rx Instructions .ROUTE .MEDSUPPLY Qty: 1 0RF Rx Instructions: check glucose BID (DME) FreeStyle Lite Strips Strip See Rx Instructions .ROUTE .MEDSUPPLY Qty: 100 0RF Rx Instructions: test BID (DME) lancets [FreeStyle Lancets] 28 gauge misc See Rx Instructions .ROUTE .MEDSUPPLY Qty: 100 0RF Rx Instructions: test BID (DME) blood-glucose meter [OneTouch Ultra2 Meter] Kit See Rx Instructions .ROUTE .MEDSUPPLY Qty: 1 0RF Rx Instructions: pt to test BID lancets [OneTouch Delica Plus Lancet] 30 gauge misc See Rx Instructions .ROUTE BID Qty: 100 0RF Rx Instructions: 2 times a day; (DME) OneTouch Ultra Blue Test Strip Strip See Rx Instructions .ROUTE .MEDSUPPLY Qty: 100 1RF Rx Instructions: test BID omega-3 acid ethyl esters 1 gram capsule 2 cap PO BID 30 Days Qty: 120 3RF Repatha SureClick 140 mg/mL pen injector 140 mg subcut Q2W Qty: 2 2RF rosuvastatin 5 mg tablet 5 mg PO BEDTIME 30 Days Qty: 30 3RF fenofibric acid (choline) 45 mg capsule,delayed release(DR/EC) 135 mg PO BEDTIME 90 Days Qty: 270 0RF losartan 25 mg tablet 25 mg PO DAILY 90 Days Qty: 90 0RF Referrals: Alejandro Flores, PHOTOCOPYING MACHINE OPERATOR-BC [Primary Care Provider] - 2 days Stand Alone Forms: Work/School Release
[2023-07-29 07:56] LABS: Alanine Aminotransferase 56 U/L (0-40); Albumin Level 4.3 g/dL (3.5-5.0); Alkaline Phosphatase 78 U/L (39-117); Anion Gap 16 (12-20); Aspartate Amino Transferase 39 U/L (5-37); Bilirubin Total 0.4 mg/dL (0.0-1.0); Blood Urea Nitrogen 7 mg/dL (9-16); Calcium 9.7 mg/dL (8.4-10.2); Carbon Dioxide 20 mmol/L (22-29); Chloride 106 mmol/L (96-108); Creatinine Clr Calc Pharmacy 137.1; Estimated Glomerular Filt Rate > 60; Glucose Random 139 mg/dL (60-115); Lipase 27 U/L (8-78); Potassium 4.2 mmol/L (3.3-5.1); Sodium 138 mmol/L (135-145); Total Protein 9.3 g/dL (6.5-8.0); Triglycerides 524 mg/dL (<150)
--- NOTE | 2023-07-29 08:40 | PC.NURSE ---
This typewriter mechanic had a long conversation with patient and GF at bedside. At this time he was not feeling nausea/ just mild abdominal pain. Denies wanting zofran. Discussed plan at this time, IVF started per order. Pt stating he has had these episodes on and off and is in the process of outpatient follow up however he is having a hard time of dealing with the acute episodes at home, PO medications are not helping.
[2023-07-29 09:13] VITALS: BP 131/83; PULSE 83; RESP 16; TEMP 36.7; O2SAT 97
== END 2023-07-29 11:13 | disposition home or self-care (01) ==
PROVIDERS: Physician Assistant; Emergency Provider Emergency Medicine Emergency Medical Services; PCP Nurse Practitioner Family
DX: R10.9 Unspecified abdominal pain (principal); R11.2 Nausea with vomiting, unspecified; E86.0 Dehydration; E78.1 Pure hyperglyceridemia; Z11.52 Encounter for screening for COVID-19; Z20.822 Contact with and (suspected) exposure to COVID-19
CPT/HCPCS: 36415; 74177; 80053; 81001; 83690; 84478; 84484; 85025; 87635; 93005; 96360; 96361; 99284; 99285; Q9967

== ENCOUNTER 2023-10-21 08:32 | Outpatient (AMB) | payer OTHER, SELFPAY ==
[2023-10-21 08:34] VITALS: BP 122/84; PULSE 82; BMI 37.5
--- NOTE | 2023-10-21 08:34 | MHC.OFFVIS ---
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 Allergies lisinopril Adverse Reaction (Intermediate, Verified 10/21/23 08:40) Cough statin Adverse Reaction (Mild, Uncoded 10/21/23 08:40) Muscle cramps Medication List - Last Reconciled 10/21/23 by Bert Hawk MD blood sugar diagnostic (FreeStyle Lite Strips) test BID blood sugar diagnostic test BID blood-glucose meter (FreeStyle Lite Meter kit) check glucose BID blood-glucose meter (OneTouch Ultra2 Meter kit) pt to test BID fenofibric acid (choline) 135 mg (3 x 45 mg) PO BEDTIME 90 days lancets (OneTouch Delica Plus Lancet) 2 times a day; lancets (FreeStyle Lancets) test BID losartan 25 mg PO DAILY 90 days ondansetron 4 mg PO Q6H PRN HPI HPI Comments History of Present Illness Details Thank you for referring Austin in cardiology consultation today for management of hyperlipidemia. He is a pleasant 33-year-old male with prior history of longstanding predominantly significantly elevated triglycerides and has been on fenofibric acid for many years. He also has prior history of morbid obesity, sleep apnea. He about 2 years ago was diagnosed with diabetes and he then modified his lifestyle with losing weight exercising regularly and changing his diet. Since then he is currently diet manage diabetes with no medications on board. He also has history of hypertension for which he takes losartan with well-controlled blood pressure. He has cut down drinking soda. He does not drink alcohol. He also has come off significantly of fried food. He also has watching carbohydrate intake. He has lost weight but is currently still moderately obese. His triglycerides were as high as 1100 range and more recently had come down to in the 500 range. Therapy improved but still significantly elevated on fenofibric acid with risk for pancreatitis. He also complains of intermittent retrosternal to precordial chest discomfort which happens randomly, could be related to stress. Symptoms last for few minutes and then dissipate. Does not notice any significant exertional chest pain. Denies any shortness of breath, orthopnea, PND, palpitations, lightheadedness. He comes here for evaluation for chest discomfort and management of his hyperlipidemia predominantly hypertriglyceridemia. Family history of hypertriglyceridemia in his mom. [facility] Medical History Fatty liver Metabolic syndrome TAPIA (nonalcoholic steatohepatitis) Hypertension Surgical History History of surgery on lower extremity Family History Mother Sleep apnea Sister Mental health disorder Social History Housing: House Are you a primary patient care coordinator to a significant other at home: No Alcohol intake: current Alcohol intake frequency: holidays/special occasions only Patient Tobacco Use Status: Former Tobacco user Tobacco use type: Cigarette Years Smoked: 2 years e-Cigarette/Vaping Use: Never Used Second Hand Smoke Exposure: No Current occupational status: employed Current occupation: [employer] Current occupational exposures/hazards: No Cognitive needs: No Hearing needs: No Vision needs: No Review of Systems Const Denies chills, Denies daytime sleepiness, Denies fatigue, Denies fever(s), Denies frequent falls, Denies poor appetite, Denies snoring, Denies stops breathing during sleep, Denies weakness, Denies weight gain and Denies weight loss Eyes Denies loss of vision ENT Denies dizziness and Denies hearing loss Card Denies chest pain, Denies claudication, Denies leg edema, Denies lightheadedness, Denies palpitations, Denies dyspnea, Denies dyspnea on exertion and Denies orthopnea Resp Denies cough, Denies excessive phlegm production, Denies dyspnea, Denies dyspnea on exertion, Denies snoring and Denies wheezing GI Denies abdominal pain, Denies hematochezia, Denies change in bowel habits, Denies nausea and Denies vomiting Denies dysuria and Denies urinary frequency Musc Denies arthralgias, Denies muscle weakness, Denies numbness and Denies other (frequent falls) Skin/Breast Denies nail changes and Denies rash Neuro Denies Abnormal speech present, Denies dizziness, Denies frequent falls, Denies loss of vision, Denies memory loss, Denies numbness and Denies weakness Psych Denies depression and Denies memory loss Endo Denies fatigue and Denies palpitations Kevin/Lymph Reports easy bruising and Reports other (anemia) Aller/Immun Denies wheezing Physical Exam Vital Signs: Last Vital Signs Pulse 82 10/21/23 08:34 BP 122/84 10/21/23 08:34 BMI result Body Mass Index 37.5 Const General: cooperative, comfortable, no acute distress, alert, awake and Physically active Nutritional Appearance: obese Orientation/consciousness: patient oriented x3 Limitations: no limitations HEENT Head: Yes normocephalic and Yes atraumatic Neck Neck: Yes trachea midline, Yes supple and Yes no JVD Resp Effort & Inspection: normal respiratory effort Auscultation: clear to auscultation bilaterally Cardio Jugular venous distension: no JVD Palpation: normal PMI Rate: regular rate Rhythm: regular rhythm Heart sounds: S1 normal heart sound present, S2 normal heart sound present, no click, no gallops, no murmurs and no rubs GI Auscultation: normal bowel sounds Skin General skin exam: no rashes or lesions noted Neuro General: patient oriented x3 and no focal motor deficits Speech: No Abnormal speech present Extrem General: Yes no clubbing, cyanosis or edema Assessment & Plan Assessment & Plan (1) Atypical chest pain: Code(s): R07.89 - Other chest pain Plan: Atypical chest pain in this young male with multiple risk factors including obesity, diabetes, hypertension, hyperlipidemia. Likelihood of coronary artery disease low to intermediate. Would suggest a treadmill stress test given his normal baseline EKG to assess for myocardial ischemia and exercise capacity. This tells will be scheduled in near future. Further treatment based on the findings. Will also suggest echocardiogram given his risk factors to evaluate for structural heart disease including LVH that could explain his intermittent chest tightness. This was discussed with him. These tests will be scheduled in near future. If his stress test is negative I would recommend him to probably pursue coronary calcium score, he wants to think about it due to [id number] cost. This will determine further course of management and aggressive medical therapy if he has any evidence of coronary atherosclerosis. (2) Familial hypertriglyceridemia: Code(s): E78.1 - Pure hyperglyceridemia Plan: Marked hypertriglyceridemia which appears to be out of proportion to underlying metabolic disorder. His diabetes is better controlled with diet modification although I think he requires more tighter control with hemoglobin A1c to be targeted below 6. He has already modified his diet and advised him to stay away from foods with high glycemic index as well as high fat content. He has modified his diet significantly. I have advised him to continue to participate in more aggressive weight loss program more regular exercise. Although this seems appear to be more genetic. His thyroid profile is within normal limits. His triglycerides have improved but not significantly with fenofibric acid and he remains at risk for pancreatitis and his triglycerides need to be lower further. I have therefore prescribed in Vascepa 2 g b.i.d. to a fully for the lower triglycerides to less than 200 mg/dL. Will repeat lipid panel in 3 months time. Further treatment based on the response. If he remains with elevated LDL at that point time may require introduction of LDL lowering therapy with may be statins at that point in time. This was discussed with him. He understands and agrees. Consider referral to bariatric program. Will follow with him in 3 months time Orders: Orders CA stress test Today R07.89 - Other chest pain CA echo transthoracic complete Today R07.89 - Other chest pain Lipid Panel 3 Months E78.1 - Pure hyperglyceridemia, I25.10 - Atherosclerotic heart disease of [place] coronary artery without angina pectoris CRP High Sensitivity 3 Months E78.1 - Pure hyperglyceridemia, E78.5 - Hyperlipidemia, unspecified Medications: New icosapent ethyl (Vascepa) 2 grams (2 x 1 gram) PO BID 120 caps 3RF Coding Level of Care Code New Pt Level 4 (25482) Diagnoses Atypical chest pain R07.89 Familial hypertriglyceridemia E78.1
== END 2023-10-21 09:09 | disposition home or self-care (01) ==
PROVIDERS: PCP Nurse Practitioner Family; Visit Provider Internal Medicine Cardiovascular Disease
DX: R07.89 Other chest pain (principal); E78.1 Pure hyperglyceridemia
CPT/HCPCS: 99204

== ENCOUNTER → 2023-10-21 08:32 | Outpatient (BNVA) | payer OTHER, SELFPAY | PROVIDERS: PCP Nurse Practitioner Family; Visit Provider Internal Medicine Cardiovascular Disease ==

== ENCOUNTER → 2023-11-06 07:50 | Outpatient (REF) | payer OTHER, SELFPAY ==
--- NOTE | 2023-11-06 07:56 | CA_ITS ---
Acquisition Time: 2023-11-06 08:46:52 Total Exercise Time: 00:08:14 Test Indications: Chest pain Medications: See H Protocol: AVERY Max HR: 190 BPM 102% of Pred: 185 BPM Max BP: 198/090 mmHG Max Work Load: 10.1 METS Exercise stress test with exercise 8 min 14 sec of Avery protocol, achieving 86% MPHR, with mild sob, no chest discomfort, without arrythmia, with hypertensive response to exercise with max BP 198/90, without EKG changes meeting criteria for ischemia. In recovery his BP returned to 130/78. Test reviewed with Dr Murdock. Referred By: Bert Hawk Overread By: SHANTI NINO
--- NOTE | 2023-11-06 07:56 | CA_ITS ---
Transthoracic Echocardiogram Patient (Last, First, Middle): Austin Maldonado, Gender: Male Date of : 1990 Age: 33 Procedure Date: 11/06/2023 Procedure Type: Transthoracic Echocardiogram Location: OP Height: 162.56 cm Weight: 99.79 kg BSA: 2.04 m2 Heart Rate: bpm BP: 122 / 70 mmHg Big Data Engineer: Referring MD: Bert Hawk MD Symptoms: R07.89 - Other chest pain Study Quality: Adequate ECG Rhythm: Sinus Conclusions: - The left ventricular systolic function is normal. The calculated ejection fraction is 56% by biplane method. - There is mildly increased left ventricular wall thickness. - No obvious valvular pathology seen on this study. Findings Left Ventricle Normal left ventricular cavity size. There is mildly increased left ventricular wall thickness. The left ventricular systolic function is normal. The calculated ejection fraction is 56% by biplane method. There is no evidence of regional wall motion abnormalities. Diastolic function is normal for age. Right Ventricle Normal right ventricular cavity size and systolic function. Atria Both atria are normal in size. Aortic Valve The aortic valve structure and function is likely normal. There is no aortic valve stenosis. There is no aortic valve regurgitation. Mitral Valve The mitral valve appears normal. There is no mitral valve regurgitation. There is no mitral valve stenosis. Pulmonic Valve The pulmonic valve is likely normal. Tricuspid Valve There is trace tricuspid valve regurgitation. There is no evidence of pulmonary hypertension. Great Vessels The asc aorta is normal in size. Venous The inferior vena cava is normal in size and collapses greater than 50% with inspiration. Pericardium/Pleural There is no evidence of pericardial effusion. Prior Study Comparison No prior study available for comparison. Recommendations, Care & Conclusions No obvious valvular pathology seen on this study. Measurements 2D Linear Measurements IVSd: 1.24 0.6-0.9/0.6-1.0 cm LVIDd: 4.05 3.9-5.3/4.2-5.9 cm LVIDd Index: 1.99 2.4-3.2/2.2-3.1 cm/m2 LVIDs: 2.74 2.0-3.6 cm LVPWd: 1.28 0.7-1.1 cm Ao Root: 2.80 2.1-3.5 cm LA Diam: 3.70 2.7-3.8/3.0-4.0 cm LAIDs Index: 1.81 1.5-2.3 cm/m2 LV Mass: 225.85 67-162/88-224 g LV Mass Index: 110.71 43-95/49-115 g/m2 LVOT Diam: 2.10 3.0+(-)1.3 cm 2D Systolic Function EF 4C: 54.00 >55% EF 2C: 53.50 >55% EF BiP: 56.10 >55% Mitral Valve MV Pk E: 0.71 MV PK A: 0.60 MV Decel Time: 195.00 E/A: 1.20 E'Lateral: 8.38 E'Medial: 7.07 E/E' Med: 10.10 E/E' Lat: 8.50 PHT: 57.00 MVA PHT: 3.86 Decel [place]: 3.65 Aortic Valve AoV Pk Michael: 1.35 AoV Mn Michael: 0.87 AoV VTI: 0.23 AoV Pk Grad: 7.00 Aov Mn Grad: 4.00 DAYSI Cont.VTI: 3.25 LVOT LVOT Pk Michael: 1.05 LVOT Mn Michael: 0.72 LVOT VTI: 0.22 LVOT Pk Grad: 4.00 LVOT Mn Grad: 2.00 LVOT Diam: 2.10 LVOT Area: 3.46 Diastolic Function MV Pk E: 0.71 MV Pk A: 0.60 E/A: 1.20 E'Medial: 7.07 E/E' Med: 10.10 E' Laterial: 8.38 E/E' Lat: 8.50 Right Ventricle TAPSE (mm): 25.00 Tricuspid Valve TR Pk Michael: 1.58 TR Pk Grad: 10.00 RA Press: 3.00 RVSP: 13.00 Great Vessels Aorta Ao Root-2D: 2.80 2.0-3.7 cm Ao Asc: 2.90 2.1-3.4 cm Pulmonary Valve PV Pk Michael: 1.11 Peak PV Grad: 5.00 Updated in Other Vendor System with Status of Final Celestino Murdock MD electronically signed on 11/08/2023 12:42:42 PM with status of Final
== END ==
LOC: HO.CARD 07:50
PROVIDERS: PCP Nurse Practitioner Family; Visit Provider Internal Medicine Cardiovascular Disease
DX: R07.89 Other chest pain (principal)
CPT/HCPCS: 93017; 93306

== ENCOUNTER → 2023-11-06 07:56 | Outpatient (BNV) | payer OTHER, SELFPAY | PROVIDERS: PCP Nurse Practitioner Family; Visit Provider Nurse Practitioner Family | DX: R07.89 Other chest pain (principal); R94.31 Abnormal electrocardiogram [ECG] [EKG] | CPT/HCPCS: 93016; 93018; 93306 ==

== ENCOUNTER 2023-11-25 09:58 | Outpatient (AMB) | payer OTHER, SELFPAY ==
--- NOTE | 2023-11-25 10:00 | A.OFFPC_ITS ---
Vital Signs 11/25/23 10:02 Height 5 ft 4 in Weight 223 lb 2 oz BMI 38.3 BP 132/80 Blood Pressure Location Rt brachial Position Sitting Pulse 82 Pulse Source Pulse Oximeter Pulse Oximetry (%) 98 Oxygen Delivery Method Room Air Intake Visit Reasons: Diabetes follow up Intake Note: Pt is here for follow up for his DM Allergies lisinopril Adverse Reaction (Intermediate, Verified 11/25/23 10:04) Cough statin Adverse Reaction (Mild, Uncoded 11/25/23 10:04) Muscle cramps Medication List - Last Reconciled 11/25/23 by MARTINE Chanel blood sugar diagnostic (FreeStyle Lite Strips) test BID blood sugar diagnostic test BID blood-glucose meter (FreeStyle Lite Meter kit) check glucose BID blood-glucose meter (OneTouch Ultra2 Meter kit) pt to test BID fenofibric acid (choline) 135 mg (3 x 45 mg) PO BEDTIME 90 days icosapent ethyl (Vascepa) 2 grams (2 x 1 gram) PO BID lancets ([place]Touch Delica Plus Lancet) 2 times a day; lancets (FreeStyle Lancets) test BID losartan 25 mg PO DAILY 90 days ondansetron 4 mg PO Q6H PRN Tobacco use date assessed: 11/25/23 Dental Screening Dental Screen Date: 11/25/23 Did you have a dental visit in the last 12 months?: No Did you have a dental problem in the last 6 months where you did not have access to dental care?: No Was dental information given to patient?: No HPI Diabetes follow up HPI Details Pt is a diabetic, on an ARB. A1C in office today is 6.9. Microalbumin is up to date. Denies polyuria, polydipsia, and neuropathy. Pt denies any signs and symptoms of hypoglycemia and does know how to correct it. Pt reports checking his blood sugar intermittently and it is mostly stable. Eye exam is up to date. [facility] Medical History Fatty liver Metabolic syndrome TAPIA (nonalcoholic steatohepatitis) Hypertension Surgical History History of surgery on lower extremity Family History Mother Sleep apnea Sister Mental health disorder Social History Housing: House Are you a primary care center manager to a significant other at home: No Alcohol intake: current Alcohol intake frequency: holidays/special occasions only Patient Tobacco Use Status: Former Tobacco user Tobacco use type: Cigarette Years Smoked: 2 years e-Cigarette/Vaping Use: Never Used Second Hand Smoke Exposure: No Current occupational status: employed Current occupation: [employer] Current occupational exposures/hazards: No Cognitive needs: No Hearing needs: No Vision needs: No Questionnaire PHQ-9 Over the last 2 weeks, how often have you been bothered by any of the following problems? 1. Little interest or pleasure in doing things: not at all 2. Feeling down, depressed, or hopeless: several days 3. Trouble falling or staying asleep, or sleeping too much: several days 4. Feeling tired or having little energy: not at all 5. Poor appetite or overeating: more than half the days 6. Feeling bad about yourself - or that you are a failure or have let yourself or your family down: not at all 7. Trouble concentrating on things, such as reading the newspaper or watching television: not at all 8. Moving or speaking so slowly that other people could have noticed. Or the opposite - being so fidgety or restless that you have been moving around a lot more than usual: not at all 9. Thoughts that you would be better off or of hurting yourself in some way: not at all Total score: 4 Source: Developed by Drs. James Mcnair, Jody Love, Abiel Diaz and colleagues, with an educational chandler from [employer]. Thrive Questionnaire Date Thrive assessed: 11/25/23 I am a: Patient What is your living situation today?: I have a steady place to live Within the past 12 months, did the food you bought not last and you didn't have the money to get more?: Never true Within the past 12 months, did you worry whether your food would run out before you got money to buy more?: Never true Do you have trouble paying for medicines?: No Do you have trouble getting transportation to medical appointments?: No Do you have trouble paying your heating and electricity bill?: No Do you have trouble taking care of your child, family member or friend?: No Do you have trouble with day-to-day activities such as bathing, preparing meals, shopping, managing finances, etc.?: No Are you currently unemployed and looking for a job?: No Are you interested in more education?: No THRIVE Score: 0 AUDIT C Alcohol Use Questionnaire (AUDIT-C) 1. How often do you have a drink containing alcohol?: Monthly or less 2. How many drinks containing alcohol do you have on a typical day when you are drinking?: 1 or 2 3. How often do you have six or more drinks on one occasion?: Never Total Score: 1 EFREN-7 AMB Questionnaire EFREN-7 Date EFREN - 7 assessed: 11/25/23 Feeling nervous, anxious, or on edge: 0 = Not at all Not being able to stop or control worryin = Not at all Worrying too much about different things: 0 = Not at all Trouble relaxin = Not at all Being so restless that it is hard to sit still: 0 = Not at all Becoming easily annoyed or irritable: 0 = Not at all Feeling afraid as if something awful might happen: 0 = Not at all Total EFREN-7 score (0-4 normal; 5-9 mild; 10-14 moderate; 15-21 severe): 0 Source: Developed by Drs. James Mcnair, Jody Love, Abiel Diaz and colleagues, with an educational chandler from [employer]. Review of Systems Const Reports as per HPI Physical exam (Primary Care) Vital Signs: Last Vital Signs Pulse 82 11/25/23 10:02 BP 132/80 11/25/23 10:02 Pulse Ox 98 11/25/23 10:02 Oxygen Delivery Method Room Air 11/25/23 10:02 BMI result Body Mass Index 38.3 Tobacco/Smoking Status: Tobacco use Status Tobacco use date assessed 11/25/23 11/25/23 10:07 Patient Tobacco Use Status Former Tobacco user 11/25/23 10:01 Tobacco use type Cigarette 11/25/23 10:01 e-Cigarette/Vaping Use Never Used 11/25/23 10:01 Thrive Assessment: Date of Thrive Assessment Date Thrive assessed 05/22/22 11/25/23 10:01 Const General: cooperative Nutritional Appearance: obese Orientation/consciousness: patient oriented x3 Resp Effort & Inspection: normal respiratory effort Auscultation: clear to auscultation bilaterally Cardio Rate: regular rate Rhythm: regular rhythm Heart sounds: S1 normal heart sound present and S2 normal heart sound present Neuro General: patient oriented x3 Extrem Other: bilat feet: + sensation with use of monofilament, feet intact Psych Appearance: grossly normal Mental Status: mental status grossly normal Speech and movement: Normal speech and movement present Affect: normal affect Attitude: cooperative Thought process: Normal thought process present Thought content: Normal thought content present Insight: Good insight present (Psych) Judgement: Good judgement present (Psych) Results AMB Hemoglobin A1c AMB Hemoglobin A1c 6.9 % Last Edit by Aundrea Early CMA on 11/25/23 10: 29 Assessment and Plan Assessment & Plan (1) Diabetes: Code(s): E11.9 - Type 2 diabetes mellitus without complications Plan: A1C done in office Plan The patient agreed to the use of a director biomedical engineering for this encounter. Scribed for EMANUEL Molina-GARY by Desiree Mccloud director biomedical engineering, on 11/25/2023 at 10:15 EST. Orders: Orders AMB Hemoglobin A1c Today E11.9 - Type 2 diabetes mellitus without complications UA CC w/rflx Micro + Cult Today E11.9 - Type 2 diabetes mellitus without complications Complete Blood Count Auto Diff Today E11.9 - Type 2 diabetes mellitus without complications Comprehensive [place]. Panel Fast Today E11.9 - Type 2 diabetes mellitus without complications TSH reflex Free T4 Today E11.9 - Type 2 diabetes mellitus without complications Lipid Panel Today E11.9 - Type 2 diabetes mellitus without complications Coding Level of Care Code Est Pt Level 3 (27050) Diagnoses Diabetes E11.9
[2023-11-25 10:02] VITALS: BP 132/80; PULSE 82; O2SAT 98; BMI 38.3
== END 2023-11-25 10:48 | disposition home or self-care (01) ==
PROVIDERS: PCP Nurse Practitioner Family; Visit Provider Nurse Practitioner Family
DX: E11.9 Type 2 diabetes mellitus without complications (principal)
CPT/HCPCS: 83036; 99213

== ENCOUNTER 2023-12-15 06:25 | Outpatient (REF) | payer OTHER, SELFPAY ==
[2023-12-15 06:33] LABS: MANUAL DIFF FLAG NO
[2023-12-15 07:44] LABS: Basophils Absolute Auto 0.1 X10*3/uL (0.0-0.2); Eosinophils Absolute Auto 0.3 X10*3/uL (0.0-0.4); Eosinophils Percent Auto 4.8 % (0-4); Hematocrit 50.4 % (42.0-52.0); Hemoglobin 17.2 g/dl (14.0-18.0); Imm Gran Abs Auto 0.05 X10*3/uL (0.00-0.03); Imm Gran Pct Auto 0.8 % (0.0-0.4); Lymphocytes Percent Auto 31.9 % (20-40); Mean Corpuscular HGB Conc 34.1 g/dl (31.0-36.0); Mean Corpuscular Hemoglobin 27.1 pg (27.0-33.0); Mean Corpuscular Volume 79.4 fL (80.0-98.0); Mean Platelet Volume 10.1 fL (9.4-12.4); Monocytes Absolute Auto 0.4 X10*3/uL (0.1-1.2); Monocytes Percent Auto 6.3 % (2-11); Neutrophils Absolute Auto 3.4 x10*3/uL (2.0-8.3); Neutrophils Percent Auto 55.2 % (45-73); Platelet Count 230 X10*3/uL (160-400); Red Blood Count 6.35 X10*6/uL (4.60-5.80); Red Cell Distribution Width 14.1 % (11.0-16.0); White Blood Count 6.2 X10*3/uL (4.8-10.8)
[2023-12-15 08:40] LABS: Appearance Urine Clear; Color Urine Yellow; Glucose Urine UA >=1000 mg/dL (Negative); Leukocyte Esterase Urine Negative (Negative); Nitrite Urine Negative (Negative); Specific Gravity - Urine >= 1.030 (1.005-1.025); UMIC TRIGGER UACC YES; Urine Blood Negative (Negative); Urine Ketones Trace mg/dL (Negative); Urine Protein 30 (1+) mg/dL (Neg-Trace)
[2023-12-15 08:48] LABS: Bacteria Urine None Seen (None Seen); Hyaline Casts Urine 0-2 /LPF (0-2); RBC Urine 0-2 /HPF (0-2); Squamous Epithelial Cell Urine 0-2 /HPF (0-2); WBC Urine 0-5 /HPF (0-5)
[2023-12-15 08:55] LABS: TSH reflex Free T4 1.68 uIU/mL (0.32-4.0)
[2023-12-15 08:56] LABS: Cholesterol 249 mg/dL (<200); HDL Cholesterol 23 mg/dL (>40)
[2023-12-15 09:04] LABS: Triglycerides 1554 mg/dL (<150)
[2023-12-15 12:02] LABS: Alanine Aminotransferase 44 U/L (0-40); Alkaline Phosphatase 80 U/L (39-117); Anion Gap 17 (12-20); Aspartate Amino Transferase 33 U/L (5-37); Bilirubin Total 0.3 mg/dL (0.0-1.0); Blood Urea Nitrogen 10 mg/dL (9-16); Carbon Dioxide 19 mmol/L (22-29); Chloride 104 mmol/L (96-108); Estimated Glomerular Filt Rate > 60; Glucose Fasting 164 mg/dL (60-99); Potassium 3.9 mmol/L (3.3-5.1); Sodium 136 mmol/L (135-145); Total Protein 8.7 g/dL (6.5-8.0)
== END 2023-12-15 06:26 | disposition home or self-care (01) ==
LOC: HO.LAB 06:25
PROVIDERS: PCP Nurse Practitioner Family; Visit Provider Nurse Practitioner Family
DX: E78.5 Hyperlipidemia, unspecified (principal); E11.9 Type 2 diabetes mellitus without complications; D58.2 Other hemoglobinopathies
CPT/HCPCS: 36415; 80053; 80061; 81001; 83695; 84443; 85025

== ENCOUNTER 2023-12-25 07:23 | Outpatient (REF) | payer OTHER, SELFPAY ==
[2023-12-25 07:38] LABS: MANUAL DIFF FLAG NO
[2023-12-25 08:07] LABS: Basophils Absolute Auto 0.1 X10*3/uL (0.0-0.2); Basophils Percent Auto 1.1 % (0-2); Eosinophils Absolute Auto 0.3 X10*3/uL (0.0-0.4); Eosinophils Percent Auto 4.1 % (0-4); Hemoglobin 17.5 g/dl (14.0-18.0); Imm Gran Abs Auto 0.05 X10*3/uL (0.00-0.03); Imm Gran Pct Auto 0.8 % (0.0-0.4); Lymphocytes Absolute Auto 2.1 X10*3/uL (1.2-4.9); Lymphocytes Percent Auto 32.7 % (20-40); Mean Corpuscular HGB Conc 34.3 g/dl (31.0-36.0); Mean Corpuscular Volume 78.8 fL (80.0-98.0); Mean Platelet Volume 10.1 fL (9.4-12.4); Monocytes Absolute Auto 0.5 X10*3/uL (0.1-1.2); Monocytes Percent Auto 7.2 % (2-11); Neutrophils Absolute Auto 3.5 x10*3/uL (2.0-8.3); Neutrophils Percent Auto 54.1 % (45-73); Platelet Count 227 X10*3/uL (160-400); Red Blood Count 6.47 X10*6/uL (4.60-5.80); Red Cell Distribution Width 13.9 % (11.0-16.0); White Blood Count 6.4 X10*3/uL (4.8-10.8)
[2023-12-25 08:08] LABS: Appearance Urine Clear; Color Urine Yellow; Glucose Urine UA Negative (Negative); Leukocyte Esterase Urine Negative (Negative); Nitrite Urine Negative (Negative); Specific Gravity - Urine >= 1.030 (1.005-1.025); UMIC TRIGGER UACC YES; Urine Blood Negative (Negative); Urine Ketones Negative (Negative); Urine Protein 100 (2+) mg/dL (Neg-Trace)
[2023-12-25 08:13] LABS: Bacteria Urine None Seen (None Seen); Hyaline Casts Urine 0-2 /LPF (0-2); RBC Urine 0-2 /HPF (0-2); Squamous Epithelial Cell Urine 0-2 /HPF (0-2); WBC Urine 0-5 /HPF (0-5)
[2023-12-25 08:50] LABS: Cholesterol 253 mg/dL (<200); HDL Cholesterol 21 mg/dL (>40); Triglycerides 1110 mg/dL (<150)
[2023-12-25 09:40] LABS: Alanine Aminotransferase 49 U/L (0-40); Alkaline Phosphatase 77 U/L (39-117); Anion Gap 16 (12-20); Aspartate Amino Transferase 40 U/L (5-37); Bilirubin Total 0.3 mg/dL (0.0-1.0); Blood Urea Nitrogen 9 mg/dL (9-16); Calcium 9.2 mg/dL (8.4-10.2); Carbon Dioxide 23 mmol/L (22-29); Chloride 104 mmol/L (96-108); Estimated Glomerular Filt Rate > 60; Glucose Fasting 155 mg/dL (60-99); Potassium 3.9 mmol/L (3.3-5.1); Sodium 139 mmol/L (135-145); Total Protein 8.9 g/dL (6.5-8.0)
[2023-12-26 11:08] LABS: LDL Cholesterol Direct 42 mg/dL (<100)
== END 2023-12-25 07:24 | disposition home or self-care (01) ==
LOC: HO.LAB 07:23
PROVIDERS: PCP Nurse Practitioner Family; Visit Provider Nurse Practitioner Family
DX: E11.9 Type 2 diabetes mellitus without complications (principal); E78.1 Pure hyperglyceridemia
CPT/HCPCS: 36415; 80053; 80061; 81001; 83721; 85025

== ENCOUNTER 2024-01-01 11:03 | Outpatient (REF) | payer OTHER, SELFPAY ==
--- NOTE | ~2024-01-01 | US_ITS ---
EXAMINATION: US ABDOMEN COMPLETE CLINICAL INFORMATION: Abnormal levels of other serum enzymes. COMPARISON: CT abdomen and pelvis 07/29/2023. Ultrasound abdomen complete 04/09/2021. Renal ultrasound 02/16/2019. TECHNIQUE: Real-time imaging of the abdominal viscera. FINDINGS: PANCREAS: Normal. ABDOMINAL AORTA: The proximal, mid, and distal segments are normal in caliber. INFERIOR VENA CAVA: Visualized portions are normal. LIVER: The liver is enlarged measuring 19 cm in right lobe length. The liver contour is normal. Liver is echogenic with attenuation of the sound beam consistent with steatosis. There is some sparing along the gallbladder fossa. No focal suspicious lesion. There is no intrahepatic biliary duct dilatation seen. GALLBLADDER: Unremarkable. No cholelithiasis or evidence of cholecystitis. COMMON BILE DUCT: Normal in caliber measuring 0.51 cm in diameter. RIGHT KIDNEY: 8 mm simple cyst in the upper pole. No imaging follow-up is recommended. No hydronephrosis or renal calculi. The kidney measures 12.6 cm in maximum dimension. LEFT KIDNEY: Normal. No hydronephrosis. No renal calculi or focal parenchymal lesions. The kidney measures 11.4 cm in maximum dimension. SPLEEN: Normal. The spleen measures 11.5 cm in maximum dimension. FREE FLUID: None. US/US abdomen complete IMPRESSION: Enlarged steatotic liver.
== END 2024-01-01 11:04 | disposition home or self-care (01) ==
LOC: HO.HMGCX 11:03
PROVIDERS: PCP Nurse Practitioner Family; Visit Provider Nurse Practitioner Family
DX: R74.8 Abnormal levels of other serum enzymes (principal)
CPT/HCPCS: 76700

== ENCOUNTER 2024-02-17 10:53 | Outpatient (AMB) | payer OTHER, SELFPAY ==
[2024-02-17 10:59] VITALS: BP 120/80; PULSE 97; BMI 38.2
--- NOTE | 2024-02-17 10:59 | A.OFFVIS_ITS ---
Vital Signs 02/17/24 10:59 Height 5 ft 4 in Weight 222 lb 10.67 oz BMI 38.2 BP 120/80 Blood Pressure Location Lt brachial Position Sitting Pulse 97 Intake Visit Reasons: 3 mth f/up testing/ labs Intake Note: 3 month follow-up stress and echo feeling good Shredding Machine Knife Changer Required: No Allergies lisinopril Adverse Reaction (Intermediate, Verified 11/25/23 10:04) Cough statin Adverse Reaction (Mild, Uncoded 11/25/23 10:04) Muscle cramps Medication List - Last Reconciled 02/17/24 by Bert Hawk MD blood sugar diagnostic (FreeStyle Lite Strips) test BID blood sugar diagnostic test BID blood-glucose meter (FreeStyle Lite Meter kit) check glucose BID blood-glucose meter (OneTouch Ultra2 Meter kit) pt to test BID fenofibric acid (choline) 135 mg (3 x 45 mg) PO BEDTIME 90 days fluvastatin 20 mg PO QPM icosapent ethyl (Vascepa) 2 grams (2 x 1 gram) PO BID lancets (NovoPedicsTouch Delica Plus Lancet) 2 times a day; lancets (FreeStyle Lancets) test BID losartan 25 mg PO DAILY 90 days ondansetron 4 mg PO Q6H PRN HPI Comments Details: [place] comes for follow-up. He has been doing well. He is off current diabetic medications. He says sugars are better although he does not monitor it all the time. Uses CPAP. His triglycerides improved from 2657-1675 within 4 weeks but this not enough time for recheck. Patient denies any new cardiac symptoms. His echo and stress test are within normal limits. [facility] Medical History Fatty liver Metabolic syndrome TAPIA (nonalcoholic steatohepatitis) Hypertension Surgical History History of surgery on lower extremity Family History Mother Sleep apnea Sister Mental health disorder Social History Housing: House Are you a primary home health care provider to a significant other at home: No Alcohol intake: current Alcohol intake frequency: holidays/special occasions only Patient Tobacco Use Status: Former Tobacco user Tobacco use type: Cigarette Years Smoked: 2 years e-Cigarette/Vaping Use: Never Used Second Hand Smoke Exposure: No Current occupational status: employed Current occupation: [employer] Current occupational exposures/hazards: No Cognitive needs: No Hearing needs: No Vision needs: No Review of Systems Const Denies chills, Denies fatigue, Denies fever(s), Denies frequent falls, Denies weakness, Denies weight gain and Denies weight loss ENT Denies dizziness Card Denies chest pain, Denies leg edema, Denies lightheadedness, Denies palpitations, Denies dyspnea, Denies dyspnea on exertion, Denies orthopnea and Denies other (loss of consciousness) Resp Denies cough, Denies dyspnea and Denies dyspnea on exertion GI Denies hematochezia and Denies change in stool character Musc Denies abnormal gait, Denies muscle weakness, Denies numbness, Denies radiating pain into limb and Denies tingling Neuro Denies Abnormal speech present, Denies abnormal gait, Denies dizziness, Denies frequent falls, Denies numbness, Denies tingling and Denies weakness Endo Denies fatigue and Denies palpitations Physical Exam Vital Signs: BMI result Body Mass Index 38.2 Const General: cooperative, comfortable, no acute distress, alert, awake and Physically active Nutritional Appearance: obese Orientation/consciousness: patient oriented x3 Limitations: no limitations HEENT Head: Yes normocephalic and Yes atraumatic Neck Neck: Yes trachea midline, Yes supple and Yes no JVD Resp Effort & Inspection: normal respiratory effort Auscultation: clear to auscultation bilaterally Cardio Jugular venous distension: no JVD Palpation: normal PMI Rate: regular rate Rhythm: regular rhythm Heart sounds: S1 normal heart sound present, S2 normal heart sound present, no c lick, no gallops, no murmurs and no rubs GI Auscultation: normal bowel sounds Skin General skin exam: no rashes or lesions noted Neuro General: patient oriented x3 and no focal motor deficits Speech: No Abnormal speech present Extrem General: Yes no clubbing, cyanosis or edema Assessment & Plan Assessment & Plan (1) Familial hypertriglyceridemia: Code(s): E78.1 - Pure hyperglyceridemia Category: Medical Plan: Familial marked hypertriglyceridemia. The triglycerides levels have improved but this was too soon to check. I discussed this with him. Recheck lipid panel with a total 3 months of medical therapy. If there is no significant improvement will switch his Vascepa to Lovaza. This was discussed with him. Continued aggressive sugar management was discussed with him. Target goal hemoglobin A1c less than 6%. Consider continuous glucose monitoring device. Continue participate in aggressive lifestyle modification dietary modification avoiding foods with high glycemic index and high saturated fats. He understands and agrees. Follow up in the clinic if need be. Thank you for allowing me to partake in his care Coding Level of Care Code Est Pt Level 3 (07932) Diagnoses Familial hypertriglyceridemia E78.1
== END 2024-02-17 11:32 | disposition home or self-care (01) ==
PROVIDERS: PCP Nurse Practitioner Family; Visit Provider Internal Medicine Cardiovascular Disease
DX: E78.1 Pure hyperglyceridemia (principal)
CPT/HCPCS: 99213

== ENCOUNTER → 2024-02-17 10:53 | Outpatient (BNVA) | payer OTHER, SELFPAY | PROVIDERS: PCP Nurse Practitioner Family; Visit Provider Internal Medicine Cardiovascular Disease ==

== ENCOUNTER 2024-03-21 07:28 | Outpatient (AMB) | payer OTHER, SELFPAY ==
--- NOTE | 2024-03-21 07:36 | MHC.PC.OV ---
Vital Signs 03/21/24 07:40 Height 5 ft 4 in Weight 223 lb BMI 38.3 BP 122/80 Blood Pressure Location Rt brachial Position Sitting Pulse 80 Pulse Source Pulse Oximeter Pulse Oximetry (%) 97 Oxygen Delivery Method Room Air Intake Visit Reasons: Annual PE Over due Intake Note: Patient here for physical exam. Allergies lisinopril Adverse Reaction (Intermediate, Verified 03/21/24 08:52) Cough statin Adverse Reaction (Mild, Uncoded 03/21/24 08:52) Muscle cramps Medication List - Last Reconciled 03/21/24 by MARTINE Chanel blood sugar diagnostic (FreeStyle Lite Strips) test BID blood sugar diagnostic test BID blood-glucose meter (FreeStyle Lite Meter kit) check glucose BID blood-glucose meter (OneTouch Ultra2 Meter kit) pt to test BID fenofibric acid (choline) 135 mg (3 x 45 mg) PO BEDTIME 90 days fluvastatin 20 mg PO QPM icosapent ethyl (Vascepa) 2 grams (2 x 1 gram) PO BID lancets (Razor Insightsuch Delica Plus Lancet) 2 times a day; lancets (FreeStyle Lancets) test BID losartan 25 mg PO DAILY 90 days metformin ER 500 mg PO BID 90 days ondansetron 4 mg PO Q6H PRN Tobacco use date assessed: 11/25/23 Dental Screening Dental Screen Date: 11/25/23 HPI Annual PE Over due HPI Details Pt is here for a PE. Will order labs. Pt is a diabetic, on an ARB and a statin. A1C in office today is 8.2. Microalbumin is up to date. Denies polyuria, polydipsia, and neuropathy. Pt denies any signs and symptoms of hypoglycemia and does know how to correct it. Pt reports that his diet has been very poor and he has been drinking more sugary energy drinks. Will start metformin ER 500mg bid. Pt is intersted in a glucose sensor, will send. Will repeat cholesterol. I believe pt would be a good candidate for a PCSK9 inhibitor. He will be following up with cardiology. [facility] Medical History Fatty liver Metabolic syndrome TAPIA (nonalcoholic steatohepatitis) Hypertension Surgical History History of surgery on lower extremity Family History Mother Sleep apnea Sister Mental health disorder Stroke Social History Housing: House Are you a primary md do resident urgent care to a significant other at home: No Alcohol intake: current Alcohol intake frequency: holidays/special occasions only Patient Tobacco Use Status: Former Tobacco user Tobacco use type: Cigarette Years Smoked: 2 years e-Cigarette/Vaping Use: Never Used Second Hand Smoke Exposure: No Current occupational status: employed Current occupation: [employer] Current occupational exposures/hazards: No Cognitive needs: No Hearing needs: No Vision needs: No Questionnaire PHQ-9 Over the last 2 weeks, how often have you been bothered by any of the following problems? 02185 - PHQ-9 Billing: Patient declined-do not bill Source: Developed by Drs. James Mcnair, Abiel Arnett and colleagues, with an educational chandler from [employer]. Thrive Questionnaire Date Thrive assessed: 11/25/23 EFREN-7 AMB Questionnaire EFREN-7 Date EFREN - 7 assessed: 11/25/23 Source: Developed by Drs. James Mcnair, Abiel Arnett and colleagues, with an educational chandler from [employer]. EFREN-7 Assessment Billing EFREN-7 Assessment Tool: pt declined-do not bill Review of Systems Const Denies chills and Denies fever(s) Eyes Denies blurry vision ENT Denies vertigo, Denies dizziness and Denies sore throat Card Denies chest pain at rest, Denies chest pain with activity, Denies diaphoresis, Denies dyspnea and Denies dyspnea on exertion Resp Denies cough, Denies dyspnea, Denies dyspnea on exertion and Denies wheezing GI Denies abdominal pain, Denies melena, Denies hematochezia, Denies constipation, Denies diarrhea and Denies loose stools Denies hematuria Musc Denies numbness and Denies tingling Skin/Breast Denies lesions Neuro Denies vertigo, Denies dizziness, Denies numbness and Denies tingling Psych Denies anxiety, Denies depression, Denies homicidal ideation, Denies suicidal ideation and Denies other (substance abuse) Aller/Immun Denies wheezing Physical exam (Primary Care) Vital Signs: Last Vital Signs Pulse 80 03/21/24 07:40 BP 122/80 03/21/24 07:40 Pulse Ox 97 03/21/24 07:40 Oxygen Delivery Method Room Air 03/21/24 07:40 BMI result Body Mass Index 38.3 Tobacco/Smoking Status: Tobacco use Status Tobacco use date assessed 11/25/23 03/21/24 07:38 Patient Tobacco Use Status Former Tobacco user 03/21/24 07:38 Tobacco use type Cigarette 03/21/24 07:38 e-Cigarette/Vaping Use Never Used 03/21/24 07:38 Thrive Assessment: Date of Thrive Assessment Date Thrive assessed 11/25/23 03/21/24 07:38 Const General: cooperative Nutritional Appearance: obese Orientation/consciousness: patient oriented x3 HENMT Head: Yes normal to inspection, Yes normocephalic and Yes atraumatic Ears: TM's normal bilaterally Eyes General: appearance normal, both eyes and all related structures Alignment and Position: alignment normal and position normal Neck Neck: Yes normal visual inspection and Yes no lymphadenopathy Thyroid: Thyroid normal Resp Effort & Inspection: normal respiratory effort Auscultation: clear to auscultation bilaterally Cardio Rate: regular rate Rhythm: regular rhythm Heart sounds: S1 normal heart sound present, S2 normal heart sound present and no murmurs GI Palpation (GI): Soft to palpation and nontender Auscultation: normal bowel sounds Male General Exam: Yes normal external exam Penis: normal penis Scrotum: scrotum normal, testes descended bilaterally and no inguinal hernias Testes: no testicular mass Skin Rashes: no rashes Neuro General: patient oriented x3, moves all extremities, no focal motor deficits and deep tendon reflexes 2+ bilaterally Romberg Test: Negative Extrem Other: bilat feet: + sensation with use of monofilament, feet intact Psych Appearance: grossly normal Mental Status: mental status grossly normal Speech and movement: Normal speech and movement present Affect: normal affect Attitude: cooperative Thought process: Normal thought process present Thought content: Normal thought content present Insight: Good insight present (Psych) Judgement: Good judgement present (Psych) Results AMB Hemoglobin A1c AMB Hemoglobin A1c 8.2 % Last Edit by KATERINA Correia on 03/21/24 07:59 Results Reviewed Results Reviewed: Laboratory Last Values Hgb A1c (Clinic) 8.2 % (4.0-6.0) H 03/21/24 07:58 Assessment and Plan Assessment & Plan (1) Encounter for routine adult physical exam with abnormal findings: Code(s): Z00.01 - Encounter for general adult medical examination with abnormal findings Plan: Labs ordered (2) Diabetes: Code(s): E11.9 - Type 2 diabetes mellitus without complications Plan: Starting metformin ER 500mg bid, labs ordered Plan The patient agreed to the use of a medical staff physician for this encounter. Scribed for MARTINE Molina by Desiree Mccloud medical staff physician, on 03/21/2024 at 08:10 EST. Orders: Orders AMB Hemoglobin A1c Today Z13.9 - Encounter for screening, unspecified Complete Blood Count Auto Diff Today E11.9 - Type 2 diabetes mellitus without complications, Z00.01 - Encounter for general adult medical examination with abnormal findings UA CC w/rflx Micro + Cult Today E11.9 - Type 2 diabetes mellitus without complications, Z00.01 - Encounter for general adult medical examination with abnormal findings Comprehensive [place]. Panel Fast Today E11.9 - Type 2 diabetes mellitus without complications, Z00.01 - Encounter for general adult medical examination with abnormal findings TSH reflex Free T4 Today E11.9 - Type 2 diabetes mellitus without complications, Z00.01 - Encounter for general adult medical examination with abnormal findings Lipid Panel Today E11.9 - Type 2 diabetes mellitus without complications, Z00.01 - Encounter for general adult medical examination with abnormal findings Medications: New metformin ER 500 mg PO BID 90 days 180 tabs 0RF Coding Level of Care Code Est Pt Prev Care 18-39y(47322) Diagnoses Encounter for routine adult physical exam with abnormal findings Z00.01 Diabetes E11.9
[2024-03-21 07:40] VITALS: BP 122/80; PULSE 80; O2SAT 97; BMI 38.3
== END 2024-03-21 08:29 | disposition home or self-care (01) ==
PROVIDERS: PCP Nurse Practitioner Family; Visit Provider Nurse Practitioner Family
DX: Z00.01 Encounter for general adult medical examination with abnormal findings (principal); E11.9 Type 2 diabetes mellitus without complications; Z13.9 Encounter for screening, unspecified
CPT/HCPCS: 83036; 99214; 99395

== ENCOUNTER 2024-07-27 08:20 | Outpatient (REF) | payer OTHER, SELFPAY ==
[2024-07-27 09:56] LABS: MANUAL DIFF FLAG NO
[2024-07-27 10:08] LABS: Basophils Absolute Auto 0.1 X10*3/uL (0.0-0.2); Basophils Percent Auto 1.1 % (0-2); Eosinophils Absolute Auto 0.1 X10*3/uL (0.0-0.4); Eosinophils Percent Auto 2.5 % (0-4); Hemoglobin 17.8 g/dl (14.0-18.0); Imm Gran Abs Auto 0.03 X10*3/uL (0.00-0.03); Imm Gran Pct Auto 0.5 % (0.0-0.4); Lymphocytes Absolute Auto 1.8 X10*3/uL (1.2-4.9); Lymphocytes Percent Auto 32.1 % (20-40); Mean Corpuscular HGB Conc 32.2 g/dl (31.0-36.0); Mean Corpuscular Hemoglobin 26.1 pg (27.0-33.0); Mean Corpuscular Volume 80.9 fL (80.0-98.0); Mean Platelet Volume 10.2 fL (9.4-12.4); Monocytes Absolute Auto 0.4 X10*3/uL (0.1-1.2); Monocytes Percent Auto 7.9 % (2-11); Neutrophils Absolute Auto 3.1 x10*3/uL (2.0-8.3); Neutrophils Percent Auto 55.9 % (45-73); Platelet Count 230 X10*3/uL (160-400); Red Blood Count 6.82 X10*6/uL (4.60-5.80); Red Cell Distribution Width 15.1 % (11.0-16.0); White Blood Count 5.6 X10*3/uL (4.8-10.8)
[2024-07-27 10:09] LABS: Hematocrit 55.2 % (42.0-52.0)
[2024-07-27 10:15] LABS: Estimated Average Glucose 148 mg/dL; Hemoglobin A1C 204.5894 umol/L; Hemoglobin A1c % 6.8 % (<6.0); Total Hemoglobin (HGBA1C) 4008.9659 umol/L
[2024-07-27 10:23] LABS: Appearance Urine Turbid; Color Urine Yellow; Glucose Urine UA 100 mg/dL (Negative); Leukocyte Esterase Urine Negative (Negative); Nitrite Urine Negative (Negative); UMIC TRIGGER UACC YES; Urine Blood Negative (Negative); Urine Ketones Negative (Negative); Urine Protein 30 (1+) mg/dL (Neg-Trace)
[2024-07-27 10:29] LABS: Alanine Aminotransferase 53 U/L (0-40); Albumin Level 4.3 g/dL (3.5-5.0); Alkaline Phosphatase 77 U/L (39-117); Anion Gap 12 (12-20); Aspartate Amino Transferase 28 U/L (5-37); Bilirubin Total 0.4 mg/dL (0.0-1.0); Blood Urea Nitrogen 7 mg/dL (9-16); Calcium 9.5 mg/dL (8.4-10.2); Carbon Dioxide 26 mmol/L (22-29); Chloride 105 mmol/L (96-108); Cholesterol 245 mg/dL (<200); Estimated Glomerular Filt Rate > 60; Glucose Fasting 133 mg/dL (60-99); HDL Cholesterol 31 mg/dL (>40); Potassium 3.9 mmol/L (3.3-5.1); Sodium 139 mmol/L (135-145); Triglycerides 991 mg/dL (<150)
[2024-07-27 10:32] LABS: Bacteria Urine None Seen (None Seen); Hyaline Casts Urine 0-2 /LPF (0-2); RBC Urine 0-2 /HPF (0-2); Squamous Epithelial Cell Urine 0-2 /HPF (0-2); WBC Urine 0-5 /HPF (0-5)
[2024-07-27 10:37] LABS: HBS Num1 60.54 mIU/mL (0-7.99); HBc Num1 0.12 S/CO (0.00-0.79); HBsAGNum1 0.37 S/CO (0.00-0.99); Hepatitis B Core Antibody Nonreactive (Nonreactive); Hepatitis B Surface Antigen Negative (Negative); ~HepC Num1 0.11 S/CO (0.00-0.79); ~Hepatitis A Antibody IgM Nonreactive (Nonreactive); ~Hepatitis B Surface Antibody REACTIVE (Nonreactive); ~Hepatitis C Antibody Nonreactive (Nonreactive)
[2024-07-27 10:47] LABS: TSH reflex Free T4 2.37 uIU/mL (0.32-4.0)
[2024-07-29 07:28] LABS: LDL Cholesterol Direct 44 mg/dL (<100)
[2024-07-30 23:24] LABS: Smooth Muscle Antibody <20 U (<20)
== END 2024-07-27 08:21 | disposition home or self-care (01) ==
LOC: HO.HMGCLDS 08:20
PROVIDERS: PCP Nurse Practitioner Family; Visit Provider Nurse Practitioner Family
DX: Z00.01 Encounter for general adult medical examination with abnormal findings (principal); E11.9 Type 2 diabetes mellitus without complications; E78.1 Pure hyperglyceridemia; E78.5 Hyperlipidemia, unspecified; R74.8 Abnormal levels of other serum enzymes
CPT/HCPCS: 36415; 80053; 80061; 81001; 81003; 83036; 83721; 84443; 85025; 86015; 86704; 86706; 86709; 86803; 87340

== ENCOUNTER → 2024-08-04 08:07 | Outpatient (BNVA) | payer OTHER, SELFPAY | PROVIDERS: PCP Nurse Practitioner Family ==

== ENCOUNTER 2025-02-01 09:27 | Outpatient (REF) | payer OTHER, SELFPAY ==
[2025-02-01 10:02] LABS: MANUAL DIFF FLAG NO
--- OUTSIDE RECORDS SUMMARY | 2025-02-01 10:26 | XMS_ITS | Clinical Summary ---
Author Organization [facility] Facility Address [address] [place] [id number] Care Team Providers Care Stone Cutter Name Role Phone Alejandro Flores NP Primary Care Provider [phone] Allergies No known active allergies Medications omega-3 acid ethyl esters (LOVAZA) 1 g capsule Take 2 g by mouth in the morning and 2 g in the evening. 05/26/2022 Active metFORMIN (GLUCOPHAGE) 1000 MG tablet Take 1,000 mg by mouth in the morning and 1,000 mg in the evening. 05/26/2022 Active Active Problems Problem Noted Date Diagnosed Date Hypertension 12/23/2022 Metabolic syndrome 12/23/2022 Proteinuria, not otherwise specified 07/01/2022 Family History Medical History Relation Comments Sleep apnea Mother Mental illness Sister Relation Status Comments Mother Sister Social History Tobacco Use Types Packs/Day Years Used Date Smoking Tobacco: Former Cigarettes Smokeless Tobacco: Never Tobacco Cessation:Counseling Given: Not Answered Alcohol Use Standard Drinks/Week Comments Yes 0 (1 standard drink = 0.6 oz pur e alcohol) socially/ holidays Sex and Gender Information Value Date Recorded Sex Assigned at Not on file Legal Sex Male 1:59 PM EDT Gender Identity Not on file Sexual Orientation Not on file Last Filed Vital Signs Vital Sign Reading Time Taken Comments Blood Pressure 122/84 07/01/2022 8:02 AM EDT Pulse 88 07/01/2022 8:02 AM EDT Temperature - - Respiratory Rate - - Oxygen Saturation 98% 07/01/2022 8:02 AM EDT Inhaled Oxygen Concentration - - Weight 102 kg (224 lb 9.6 oz) 07/01/2022 8:02 AM EDT Height 162.6 cm (5' 4 ) 07/01/2022 8:02 AM EDT Body Mass Index 38.55 07/01/2022 8:02 AM EDT Plan of Treatment Health Maintenance Due Date Last Done Comments Pneumococcal Vaccine: Peds ( 0 to 5 Years) and At-Risk Patients (6 to 49 Years) (1 of 2 - PCV) 2007 Influenza Vaccine (Season Ended) 2025 10/30/19 08 Hepatitis B Vaccine Completed 07/11/2008, 06/03/2007, 04/16/2007 Insurance Health Health Care Teams Stone Cutter Relationship Specialty Start Date End Date Alejandro Flores NP [address] [place] [address] PCP - General Nurse Practitioner 07/01/22
[2025-02-01 10:43] LABS: Estimated Average Glucose 203 mg/dL; Hemoglobin A1C 345.6878 umol/L; Hemoglobin A1c % 8.7 % (<6.0); Total Hemoglobin (HGBA1C) 4828.3071 umol/L
[2025-02-01 10:50] LABS: Basophils Absolute Auto 0.1 X10*3/uL (0.0-0.2); Basophils Percent Auto 0.9 % (0-2); Eosinophils Absolute Auto 0.2 X10*3/uL (0.0-0.4); Eosinophils Percent Auto 2.8 % (0-4); Hematocrit 53.5 % (42.0-52.0); Hemoglobin 18.6 g/dl (14.0-18.0); Imm Gran Abs Auto 0.04 X10*3/uL (0.00-0.03); Imm Gran Pct Auto 0.5 % (0.0-0.4); Lymphocytes Absolute Auto 2.4 X10*3/uL (1.2-4.9); Mean Corpuscular HGB Conc 34.8 g/dl (31.0-36.0); Mean Corpuscular Hemoglobin 27.2 pg (27.0-33.0); Mean Corpuscular Volume 78.1 fL (80.0-98.0); Mean Platelet Volume 11.1 fL (9.4-12.4); Monocytes Absolute Auto 0.5 X10*3/uL (0.1-1.2); Monocytes Percent Auto 6.2 % (2-11); Neutrophils Absolute Auto 4.4 x10*3/uL (2.0-8.3); Neutrophils Percent Auto 57.6 % (45-73); Platelet Count 250 X10*3/uL (160-400); Red Blood Count 6.85 X10*6/uL (4.60-5.80); Red Cell Distribution Width 14.6 % (11.0-16.0); White Blood Count 7.6 X10*3/uL (4.8-10.8)
[2025-02-01 11:11] LABS: Appearance Urine Clear; Color Urine Yellow; Glucose Urine UA >=1000 mg/dL (Negative); Leukocyte Esterase Urine Negative (Negative); Nitrite Urine Negative (Negative); PH 5.5 (5.0-9.0); Specific Gravity - Urine 1.025 (1.005-1.025); UMIC TRIGGER UACC YES; Urine Blood Trace (Negative); Urine Ketones Negative (Negative); Urine Protein 100 (2+) mg/dL (Neg-Trace)
[2025-02-01 11:17] LABS: Bacteria Urine None Seen (None Seen); RBC Urine 0-2 /HPF (0-2); Squamous Epithelial Cell Urine 0-2 /HPF (0-2); WBC Urine 0-5 /HPF (0-5)
[2025-02-01 11:35] LABS: Creatinine Urine 125.95 mg/dL; Microalbum/Creatinine Ratio Ur 872.5 ug/mg cr (<30)
[2025-02-01 11:40] LABS: Cholesterol 326 mg/dL (<200); HDL Cholesterol 20 mg/dL (>40); Triglycerides 2778 mg/dL (<150)
[2025-02-01 13:09] LABS: Alanine Aminotransferase 53 U/L (0-40); Albumin Level 4.1 g/dL (3.5-5.0); Alkaline Phosphatase 90 U/L (39-117); Anion Gap 16 (12-20); Aspartate Amino Transferase 45 U/L (5-37); Bilirubin Total 0.3 mg/dL (0.0-1.0); Blood Urea Nitrogen 11 mg/dL (9-16); Calcium 9.5 mg/dL (8.4-10.2); Carbon Dioxide 21 mmol/L (22-29); Chloride 102 mmol/L (96-108); Estimated Glomerular Filt Rate > 60; Glucose Fasting 180 mg/dL (60-99); Potassium 4.7 mmol/L (3.3-5.1); Sodium 134 mmol/L (135-145); Total Protein 9.6 g/dL (6.5-8.0)
[2025-02-01 13:14] LABS: TSH reflex Free T4 3.02 uIU/mL (0.32-4.0)
== END 2025-02-01 09:28 | disposition home or self-care (01) ==
LOC: HO.LAB 09:27
PROVIDERS: PCP Nurse Practitioner Family; Visit Provider Nurse Practitioner Family
DX: Z00.01 Encounter for general adult medical examination with abnormal findings (principal); E78.5 Hyperlipidemia, unspecified; E11.9 Type 2 diabetes mellitus without complications
CPT/HCPCS: 36415; 80053; 80061; 81001; 81003; 82043; 82570; 83036; 84443; 85025

== ENCOUNTER 2025-02-03 09:04 | Outpatient (AMB) | payer OTHER, SELFPAY ==
--- OUTSIDE RECORDS SUMMARY | 2025-02-03 09:30 | XMS_ITS | Encounter Summary ---
Author Organization [facility] Address [address] [place] [address] Care Team Providers Care International Sales Representative Name Role Phone Matthew Feldman MD Primary Care Provider Encounter Details Date Type Department Care Team Description 06/08/2015 Manager Cleaning Report Medical Records [address] [place] [address] Kuldip De Guzman MD Social History Tobacco Use Types Packs/Day Years Used Date Smoking Tobacco: Former Alcohol Use Standard Drinks/Week Comments Yes 0 (1 standard drink = 0.6 oz pur e alcohol) rare Sex Assigned at Date Recorded Not on file documented as of this encounter Plan of Treatment Not on file documented as of this encounter Visit Diagnoses Not on filedocumented in this encounter Care Teams International Sales Representative Relationship Specialty Start Date End Date Matthew Feldman MD [address] [place] [address] PCP - General Internal Medicine 05/24/15 documented as of this encounter
--- OUTSIDE RECORDS SUMMARY | 2025-02-03 09:30 | XMS_ITS | Clinical Summary ---
Author Organization [facility] Facility Address [address] [place] [id number] Care Team Providers Care Electro Mechanical Solar Technician Name Role Phone Alejandro Flores NP Primary Care Provider [phone] Allergies No known active allergies Medications omega-3 [...] 06/03/2007, 04/16/2007 Insurance Health Health Care Teams Electro Mechanical Solar Technician Relationship Specialty Start Date End Date Alejandro Flores NP [address] [place] [address] PCP - General Nurse Practitioner 07/01/22
--- OUTSIDE RECORDS SUMMARY | 2025-02-03 09:30 | XMS_ITS | Encounter Summary ---
Author Organization [facility] Address [address] [place] [address] Care Team Providers Care Credit Rating Inspector Name Role Phone Matthew Feldman MD Primary Care Provider Encounter Details Date Type Department Care Team Description 05/28/2015 Release of Information Medical Records [address] [place] [id number] Abstract, Provider Social History Tobacco Use Types Packs/Day Years Used Date Smoking Tobacco: Former Alcohol Use Standard Drinks/Week Comments Yes 0 (1 standard drink = 0.6 oz pur e alcohol) rare Sex Assigned at Date Recorded Not on file documented as of this encounter Plan of Treatment Not on file documented as of this encounter Visit Diagnoses Not on filedocumented in this encounter Care Teams Credit Rating Inspector Relationship Specialty Start Date End Date Matthew Feldman MD [address] [place] [address] PCP - General Internal Medicine 05/24/15 documented as of this encounter
--- NOTE | 2025-02-03 09:48 | AM.OFFWIN_ITS ---
Intake Vital Signs 02/03/25 09:49 Height 5 ft 4 in Weight 222 lb BMI 38.1 BP 118/84 Blood Pressure Location Rt brachial Position Sitting Respiration 16 Pulse 89 Pulse Source Pulse Oximeter Temp 98.2 F Temp Source Oral Pulse Oximetry (%) 96 Oxygen Delivery Method Room Air Intake Visit Reasons: EP RT eye concern Intake Note: Pt is here today c/o RT eye crusty and painful no trauma noted Patient Tobacco Use Status: Former Tobacco user Allergies lisinopril Adverse Reaction (Intermediate, Verified 03/21/24 08:52) Cough statin Adverse Reaction (Mild, Uncoded 03/21/24 08:52) Muscle cramps HPI HPI Comments History of Present Illness Details 34 y/o Female patient who presents to [facility] walk in clinic with c/o right eye pain and swelling for few days now. Pt has h/o getting frequent Stye and worried he might be getting one right eye. He has been applying Warm compress eye patches with minimal relief. Pt asking for Eye Drops. [facility] Medical History (Updated 02/03/25 @ 10:14 by Riana Cohen NP) Periorbital edema of both eyes Fatty liver Metabolic syndrome TAPIA (nonalcoholic steatohepatitis) Hypertension Surgical History History of surgery on lower extremity Family History Mother Sleep apnea Sister Mental health disorder Stroke Social History Housing: House Are you a primary career developer to a significant other at home: No Alcohol intake: current Alcohol intake frequency: holidays/special occasions only Patient Tobacco Use Status: Former Tobacco user Tobacco use type: Cigarette Years Smoked: 2 years e-Cigarette/Vaping Use: Never Used Second Hand Smoke Exposure: No Current occupational status: employed Current occupation: [employer] Current occupational exposures/hazards: No Cognitive needs: No Hearing needs: No Vision needs: No Review of Systems Const All systems reviewed & are unremarkable except as noted in HPI and below Physical Exam Vital Signs: Last Vital Signs Temp 98.2 F 02/03/25 09:49 Pulse 89 02/03/25 09:49 Resp 16 02/03/25 09:49 BP 118/84 02/03/25 09:49 Pulse Ox 96 02/03/25 09:49 Oxygen Delivery Method Room Air 02/03/25 09:49 BMI result Body Mass Index 38.1 Const General: no acute distress Nutritional Appearance: obese morbidly obese Orientation/consciousness: patient oriented x3 Eyes Periorbital: periorbital findings abnormal bilateral (Edema on both eyes. ) no erythema Conjunctivae: conjunctivae normal Pupils: Equal, round and reactive pupils present EOM: EOMs intact bilaterally Neuro General: patient oriented x3, gait normal and moves all extremities Cranial nerves: Yes Equal, round and reactive pupils present Psych Speech and movement: Normal speech and movement present Assessment & Plan Assessment & Plan (1) Periorbital edema of both eyes: Code(s): R60.0 - Localized edema Plan: No signs of conjunctivitis, mild Fiorella-orbital edema both eyes. Ordered Abx Eye Drops as requested. Continue applying Warm compress eye patches. Medications: New ciprofloxacin HCl 0.3% 1 drp ophthalmic (eye) Q4H 5 days 5 mL 0RF R60.0 - Localized edema Coding Level of Care Code Est Pt Level 4 (86862) Diagnoses Periorbital edema of both eyes R60.0 Time Spent (min) 20
[2025-02-03 09:49] VITALS: BP 118/84; PULSE 89; RESP 16; TEMP 36.8; O2SAT 96; BMI 38.1
== END 2025-02-03 10:22 | disposition home or self-care (01) ==
PROVIDERS: PCP Nurse Practitioner Family; Visit Provider Nurse Practitioner Family
DX: R60.0 Localized edema (principal)

== ENCOUNTER → 2025-02-03 09:04 | Outpatient (BNVA) | payer OTHER, SELFPAY | PROVIDERS: PCP Nurse Practitioner Family; Visit Provider Nurse Practitioner Family ==

== ENCOUNTER 2025-04-18 06:03 | Outpatient (REF) | payer OTHER, SELFPAY ==
--- OUTSIDE RECORDS SUMMARY | 2025-04-18 06:05 | XMS_ITS | Clinical Summary ---
Author Organization [facility] Facility Address [address] [place] [address] Care Team Providers Care Petrographer Name Role Phone Alejandro Flores NP Primary Care Provider [phone] Allergies No known active allergies Medications omega-3 [...] 06/03/2007, 04/16/2007 Insurance Health Health Care Teams Petrographer Relationship Specialty Start Date End Date Alejandro Flores NP [address] [place] [address] PCP - General Nurse Practitioner 07/01/22
[2025-04-18 07:23] LABS: Appearance Urine Clear; Glucose Urine UA Negative (Negative); PH 5.5 (5.0-9.0); Specific Gravity - Urine 1.025 (1.005-1.025); UMIC TRIGGER UACC YES
[2025-04-18 07:44] LABS: Alanine Aminotransferase 41 U/L (0-40); Albumin Level 4.2 g/dL (3.5-5.0); Alkaline Phosphatase 75 U/L (39-117); Anion Gap 13 (12-20); Aspartate Amino Transferase 51 U/L (5-37); Blood Urea Nitrogen 10 mg/dL (9-16); Calcium 9.0 mg/dL (8.4-10.2); Carbon Dioxide 23 mmol/L (22-29); Chloride 107 mmol/L (96-108); Cholesterol 183 mg/dL (<200); Estimated Glomerular Filt Rate > 60; HDL Cholesterol 27 mg/dL (>40); Potassium 4.2 mmol/L (3.3-5.1); Sodium 139 mmol/L (135-145); Total Protein 8.2 g/dL (6.5-8.0); Triglycerides 791 mg/dL (<150)
[2025-04-18 08:09] LABS: Microalbum/Creatinine Ratio Ur 68.8 ug/mg cr (<30)
== END 2025-04-18 06:04 | disposition home or self-care (01) ==
LOC: HO.LAB 06:03
PROVIDERS: PCP Nurse Practitioner Family; Visit Provider Nurse Practitioner Family
DX: E11.9 Type 2 diabetes mellitus without complications (principal); E78.5 Hyperlipidemia, unspecified; R80.9 Proteinuria, unspecified; E78.1 Pure hyperglyceridemia
CPT/HCPCS: 36415; 80053; 80061; 81001; 82043; 82570; 83721

== ENCOUNTER 2025-04-20 07:47 | Outpatient (AMB) | payer OTHER, SELFPAY ==
--- OUTSIDE RECORDS SUMMARY | 2025-04-20 07:50 | XMS_ITS | Encounter Summary ---
Author Organization [facility] Address [address] [place] [address] Care Team Providers Care Track Service Worker Name Role Phone Matthew Feldman MD Primary Care Provider [phone] Encounter Details Date Type Department Care Team Description 06/08/2015 Physician Practice Consultant Report Medical Records [address] [place] [address] Kuldip De Guzman MD Social History Tobacco [...] on filedocumented in this encounter Care Teams Track Service Worker Relationship Specialty Start Date End Date Matthew Feldman MD [address] [place] [address] PCP - General Internal Medicine 05/24/15 documented as of this encounter
--- OUTSIDE RECORDS SUMMARY | 2025-04-20 07:50 | XMS_ITS | Clinical Summary ---
Author Organization [facility] Facility Address [address] [place] [address] Care Team Providers Care Cutter Banana Room Name Role Phone Alejandro Flores NP Primary Care Provider [phone] Allergies No known active allergies Medications omega-3 [...] 06/03/2007, 04/16/2007 Insurance Health Health Care Teams Cutter Banana Room Relationship Specialty Start Date End Date Alejandro Flores NP [address] [place] [address] PCP - General Nurse Practitioner 07/01/22
--- NOTE | 2025-04-20 08:04 | A.OFFPC_ITS ---
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 Required: No Accompanied by: Spouse Allergies lisinopril Adverse Reaction (Intermediate, Verified 04/20/25 08:09) Cough statin Adverse Reaction (Mild, Uncoded 03/21/24 08:52) Muscle cramps Medication List - Last Reconciled 04/20/25 by Alejandro Flores RETOUCHING OPERATOR- blood sugar diagnostic (FreeStyle Lite Strips) test BID blood sugar diagnostic test BID blood-glucose meter (FreeStyle Lite Meter kit) check glucose BID blood-glucose meter (OneTouch Ultra2 Meter kit) pt to test BID fenofibrate 160 mg PO DAILY lancets (OneTouch Delica Plus Lancet) 2 times a day; lancets (FreeStyle Lancets) test BID losartan 25 mg PO DAILY 90 days metformin ER 750 mg PO BID 90 days pravastatin 40 mg PO BEDTIME Tobacco use date assessed: 04/20/25 Dental Screening Dental Screen Date: 04/20/25 Did you have a dental visit in the last 12 months?: Yes Did you have a dental problem in the last 6 months where you did not have access to dental care?: No Was dental information given to patient?: Patient has dentist HPI PE HPI Details History of Present Illness The patient is a 34-year-old male presenting for management of diabetes mellitus and hypertriglyceridemia. The patient has a history of diabetes mellitus with a recent hemoglobin A1c of 7.4, which shows improvement from a previous level above 8. He is currently on metformin, which is being increased from 500 mg twice daily to 750 mg twice daily to better manage his blood glucose levels. The patient also has a history of hypertriglyceridemia, with triglyceride levels previously reaching close to 3,000 mg/dL. Recent levels have improved to the 700s, attributed to the use of pravastatin, which is being increased from 20 mg to 40 mg. Attempts to use omega-3 ethyl esters and Vascepa were unsuccessful due to insurance coverage issues. The patient has a history of elevated hemoglobin and hematocrit levels, for which he has been evaluated by hematology in the past. These levels tend to fluctuate, normalizing at times without specific intervention. Health Maintenance Social History Review of Systems - Cardiovascular: Denies chest pain. - Respiratory: Denies dyspnea. - Gastrointestinal: Denies abdominal gil n, blood in stool, constipation, diarrhea. - Psychiatric: Denies suicidal ideation, homicidal ideation. Physical Exam General: Cooperative, healthy appearing, comfortable, no acute distress and well developed Orientation: Patient oriented x3 Limitations: No limitations Head: Normal to inspection Ears: Hearing grossly normal bilaterally Nose: Normal external nose present Face and sinus: Normal facial exam Eyes: Appearance normal, both eyes and all related structures Neck: Normal visual inspection and Yes full ROM Respiratory: Normal respiratory effort and able to speak in complete sentences. Clear to auscultation bilaterally Cardiovascular: Regular rate and rhythm. Normal S1 and S2 GI: Normal to inspection. Soft to palpation and nontender : testicles without masses/lesions and no hernias appreciated Skin: No rashes or lesions noted Neuro: Patient oriented x3 Extremities: Normal to inspection Results - Labs: Hemoglobin A1c 7.4, previously a jem 8. - Labs: Triglycerides recently in the 70 0s, previously close to 3,000 mg/dL. - Labs: Elevated hemoglobin and hematocr it, fluctuating levels. Plan The patient's diabetes management plan includes increasing the dose of metformin from 500 mg twice daily to 750 mg twice daily to improve glycemic control. A follow-up cholesterol panel and other laboratory tests are scheduled for two months to monitor progress. For hypertriglyceridemia, the pravastatin dose is increased from 20 mg to 40 mg, as triglyceride levels have shown improvement but remain elevated. [place]-3 ethyl esters and Vascepa were considered but not pursued due to cost and insurance coverage issues. The patient is advised to continue monitoring his hemoglobin and hematocrit levels, which have been variable, and to maintain regular follow-ups with hematology as needed. Patient was informed and verbally consented to the use of an ambient scribe for clinic note documentation during this visit. Discussion Notes During the visit, I discussed with the patient the importance of managing his diabetes and hypertriglyceridemia effectively. We reviewed the plan to increase his metformin and pravastatin dosages to better control his blood glucose and triglyceride levels. I explained the reasons for not pursuing omega-3 ethyl esters and Vascepa due to cost and insurance issues. We also talked about the need to monitor his hemoglobin and hematocrit levels and to follow up with hematology as necessary. Patient Instructions - Increase metformin to 750 mg twice mohit ly. - Increase pravastatin to 40 mg daily. - Schedule follow-up labs in two months. - Continue monitoring hemoglobin and hem atocrit levels. [facility] Medical History Periorbital edema of both eyes Fatty liver Metabolic syndrome TAPIA (nonalcoholic steatohepatitis) Hypertension Surgical History History of surgery on lower extremity Family History Mother Sleep apnea Sister Mental health disorder Stroke Social History Housing: House Are you a primary manager care to a significant other at home: No Alcohol intake: current Alcohol intake frequency: holidays/special occasions only Patient Tobacco Use Status: Former Tobacco user Tobacco use type: Cigarette Years Smoked: 2 years e-Cigarette/Vaping Use: Never Used Second Hand Smoke Exposure: No Current occupational status: employed Current occupation: [employer] Current occupational exposures/hazards: No Cognitive needs: No Hearing needs: No Vision needs: No Questionnaire PHQ-9 Over the last 2 weeks, how often have you been bothered by any of the following problems? 1. Little interest or pleasure in doing things: not at all 2. Feeling down, depressed, or hopeless: not at all 3. Trouble falling or staying asleep, or sleeping too much: not at all 4. Feeling tired or having little energy: not at all 5. Poor appetite or overeating: not at all 6. Feeling bad about yourself - or that you are a failure or have let yourself or your family down: not at all 7. Trouble concentrating on things, such as reading the newspaper or watching television: not at all 8. Moving or speaking so slowly that other people could have noticed. Or the opposite - being so fidgety or restless that you have been moving around a lot more than usual: not at all 9. Thoughts that you would be better off or of hurting yourself in some way: not at all Total score: 0 Depression Screening Interpretation: Negative Depression Screening Done: Yes 65897 - PHQ-9 Billing: Yes Source: Developed by Drs. James Mcnair, Jody Love, Abiel Diaz and colleagues, with an educational chandler from [employer]. Thrive Questionnaire Date Thrive assessed: 04/20/25 I am a: Patient What is your living situation today?: I have a steady place to live Within the past 12 months, did the food you bought not last and you didn't have the money to get more?: Never true Within the past 12 months, did you worry whether your food would run out before you got money to buy more?: Never true Do you have trouble paying for medicines?: Yes Do you have trouble getting transportation to medical appointments?: No Do you have trouble paying your heating and electricity bill?: No Do you have trouble taking care of your child, family member or friend?: No Do you have trouble with day-to-day activities such as bathing, preparing meals, shopping, managing finances, etc.?: No Are you currently unemployed and looking for a job?: No Are you interested in more education?: No Please select the resources that you would like help with: None Currently or been in a relationship where the following occur: No concerns reported THRIVE Score: 0 AUDIT C Alcohol Use Questionnaire (AUDIT-C) 1. How often do you have a drink containing alcohol?: Monthly or less 2. How many drinks containing alcohol do you have on a typical day when you are drinking?: 1 or 2 3. How often do you have six or more drinks on one occasion?: Never Total Score: 1 Score Reviewed/Action Taken: Yes EFREN-7 AMB Questionnaire EFREN-7 Date EFREN - 7 assessed: 04/20/25 Feeling nervous, anxious, or on edge: 0 = Not at all Not being able to stop or control worryin = Not at all Worrying too much about different things: 0 = Not at all Trouble relaxin = Several days Being so restless that it is hard to sit still: 1 = Several days Becoming easily annoyed or irritable: 0 = Not at all Feeling afraid as if something awful might happen: 0 = Not at all Total EFREN-7 score (0-4 normal; 5-9 mild; 10-14 moderate; 15-21 severe): 2 Source: Developed by Jody Foy.W. Ivan, Abiel Diaz and colleagues, with an educational chandler from [employer]. EFREN-7 Assessment Billing EFREN-7 Assessment Tool: EFREN-7 Assessment 09179 Physical exam (Primary Care) Vital Signs: Last Vital Signs Pulse 94 04/20/25 08:07 BP 126/80 04/20/25 08:07 Pulse Ox 98 04/20/25 08:07 Oxygen Delivery Method Room Air 04/20/25 08:07 BMI result Body Mass Index 37.6 Tobacco/Smoking Status: Tobacco use Status Tobacco use date assessed 04/20/25 04/20/25 08:11 Patient Tobacco Use Status Former Tobacco user 04/20/25 08:04 Tobacco use type Cigarette 04/20/25 08:04 e-Cigarette/Vaping Use Never Used 04/20/25 08:04 PHQ-9: PHQ-9 Score PHQ-9: Total score 0 04/20/25 08:11 Depression Screening Interpretation: Negative Thrive Assessment: Date of Thrive Assessment Date Thrive assessed 04/20/25 04/20/25 08:11 Currently or been in a relationship where the following occur: No concerns reported Results AMB Hemoglobin A1c AMB Hemoglobin A1c 7.4 % Last Edit by Peña Lua CMA on 04/20/25 08: 27 Results Reviewed Results Reviewed: Laboratory Last Values Hgb A1c (Clinic) 7.4 % (4.0-6.0) H 04/20/25 08:26 Coding Level of Care Code Est Pt Level 3 (72927) Est Pt Prev Care 18-39y(11110) Diagnoses Familial hypertriglyceridemia E78.1 Dyslipidemia E78.5 Diabetes E11.9 Encounter for routine adult physical exam with abnormal findings Z00.01 Additional Codes EFREN-7 Assessment Billing - EFREN-7 Assessment Tool: EFREN-7 Assessment 86549 ([id number]) PHQ-9 - 44019 - PHQ-9 Billing: Yes ([id number]) Assessment & Plan Assessment & Plan (1) Familial hypertriglyceridemia: Code(s): E78.1 - Pure hyperglyceridemia Category: Medical (2) Dyslipidemia: Code(s): E78.5 - Hyperlipidemia, unspecified Category: Medical (3) Diabetes: Code(s): E11.9 - Type 2 diabetes mellitus without complications Category: Medical (4) Encounter for routine adult physical exam with abnormal findings: Code(s): Z00.01 - Encounter for general adult medical examination with abnormal findings Category: Medical Plan . Orders: Orders AMB Hemoglobin A1c Today Z13.9 - Encounter for screening, unspecified Lipoprotein A Today E11.9 - Type 2 diabetes mellitus without complications, E78.1 - Pure hyperglyceridemia, E78.5 - Hyperlipidemia, unspecified, Z00.01 - Encounter for general adult medical examination with abnormal findings Comprehensive [place]. Panel Fast Today E11.9 - Type 2 diabetes mellitus without complications, E78.1 - Pure hyperglyceridemia, E78.5 - Hyperlipidemia, unspecified, Z00.01 - Encounter for general adult medical examination with abnormal findings Complete Blood Count Auto Diff Today E11.9 - Type 2 diabetes mellitus without complications, E78.1 - Pure hyperglyceridemia, E78.5 - Hyperlipidemia, unspecified, Z00.01 - Encounter for general adult medical examination with abnormal findings LDL Cholesterol Direct Today E11.9 - Type 2 diabetes mellitus without complications, E78.1 - Pure hyperglyceridemia, E78.5 - Hyperlipidemia, unspecified, Z00.01 - Encounter for general adult medical examination with abnormal findings Medications: Changed From pravastatin 20 mg PO BEDTIME 30 tabs 2RF To pravastatin 40 mg PO BEDTIME 90 tabs 2RF From metformin ER 500 mg PO BID 90 days 180 tabs 0RF To metformin ER 750 mg PO BID 180 tabs 0RF 90 days
[2025-04-20 08:07] VITALS: BP 126/80; PULSE 94; O2SAT 98; BMI 37.6
== END 2025-04-20 08:51 | disposition home or self-care (01) ==
LOC: HO.HMCC 07:48
PROVIDERS: PCP Nurse Practitioner Family; Visit Provider Nurse Practitioner Family
DX: Z00.01 Encounter for general adult medical examination with abnormal findings (principal); E78.1 Pure hyperglyceridemia; E78.5 Hyperlipidemia, unspecified; E11.69 Type 2 diabetes mellitus with other specified complication

== ENCOUNTER → 2025-04-20 07:47 | Outpatient (BNVA) | payer OTHER, SELFPAY | PROVIDERS: PCP Nurse Practitioner Family; Visit Provider Nurse Practitioner Family | DX: Z00.01 Encounter for general adult medical examination with abnormal findings (principal); E11.9 Type 2 diabetes mellitus without complications; E78.1 Pure hyperglyceridemia; E78.5 Hyperlipidemia, unspecified | CPT/HCPCS: 83036; 96127 ==

== ENCOUNTER 2025-08-28 09:54 | Outpatient (REF) | payer OTHER, SELFPAY ==
[2025-08-28 13:19] LABS: MANUAL DIFF FLAG NO
[2025-08-28 13:36] LABS: Hematocrit 51.2 % (42.0-52.0); Hemoglobin 17.0 g/dl (14.0-18.0); Imm Gran Abs Auto 0.04 X10*3/uL (0.00-0.03); Imm Gran Pct Auto 0.6 % (0.0-0.4); Lymphocytes Absolute Auto 2.0 X10*3/uL (1.2-4.9); Mean Corpuscular HGB Conc 33.2 g/dl (31.0-36.0); Mean Corpuscular Hemoglobin 26.3 pg (27.0-33.0); Mean Corpuscular Volume 79.1 fL (80.0-98.0); NRBC Abs Auto 0.000 X10*3/uL (0.0-0.012); NRBC Pct Auto 0.0 /100WBC (0.0-0.2); Platelet Count 239 X10*3/uL (160-400); Red Blood Count 6.47 X10*6/uL (4.60-5.80); White Blood Count 7.1 X10*3/uL (4.8-10.8)
--- OUTSIDE RECORDS SUMMARY | 2025-08-28 13:53 | XMS_ITS | Encounter Summary ---
Author Organization [facility] Address [address] [place] [address] Care Team Providers Care Delivery Supervisor Name Role Phone Matthew Feldman MD Primary Care Provider Encounter Details Date Type Department Care Team Description 06/08/2015 Cellophane Worker Report Medical Records [address] [place] [address] Kuldip De Guzman MD Social History Tobacco [...] on filedocumented in this encounter Care Teams Delivery Supervisor Relationship Specialty Start Date End Date Matthew Feldman MD [address] [place] [address] PCP - General Internal Medicine 05/24/15 documented as of this encounter
--- OUTSIDE RECORDS SUMMARY | 2025-08-28 13:53 | XMS_ITS | Encounter Summary ---
Author Organization [facility] Address [address] [place] [address] Care Team Providers Care Assembler Knife Name Role Phone Matthew Feldman MD Primary Care Provider Encounter Details Date Type Department Care Team Description 05/28/2015 Release of Information Medical Records [address] [place] [id number] Abstract, Provider Social History Tobacco Use Types [...] on filedocumented in this encounter Care Teams Assembler Knife Relationship Specialty Start Date End Date Matthew Feldman MD [address] [place] [id number] PCP - General Internal Medicine 05/24/15 documented as of this encounter
[2025-08-28 14:01] LABS: Appearance Urine Clear; Glucose Urine UA Negative (Negative); PH 5.5 (5.0-9.0); Specific Gravity - Urine 1.025 (1.005-1.025); UMIC TRIGGER UACC YES
[2025-08-28 14:32] LABS: Alanine Aminotransferase 60 U/L (0-40); Albumin Level 4.4 g/dL (3.5-5.0); Alkaline Phosphatase 71 U/L (39-117); Anion Gap 14 (12-20); Aspartate Amino Transferase 52 U/L (5-37); Blood Urea Nitrogen 9 mg/dL (9-16); Calcium 9.7 mg/dL (8.4-10.2); Carbon Dioxide 25 mmol/L (22-29); Chloride 104 mmol/L (96-108); Cholesterol 236 mg/dL (<200); Estimated Glomerular Filt Rate > 60; HDL Cholesterol 28 mg/dL (>40); Potassium 4.1 mmol/L (3.3-5.1); Sodium 139 mmol/L (135-145); Total Protein 8.7 g/dL (6.5-8.0); Triglycerides 753 mg/dL (<150)
== END 2025-08-28 09:55 | disposition home or self-care (01) ==
LOC: HO.HMGCLDS 09:54
PROVIDERS: PCP Nurse Practitioner Family; Visit Provider Nurse Practitioner Family
DX: Z00.01 Encounter for general adult medical examination with abnormal findings (principal); E11.9 Type 2 diabetes mellitus without complications; E78.1 Pure hyperglyceridemia; E78.5 Hyperlipidemia, unspecified; B35.6 Tinea cruris; Z23 Encounter for immunization
CPT/HCPCS: 36415; 80053; 80061; 81001; 81003; 83036; 83695; 83721; 84443; 85025; 90471; 90715

== ENCOUNTER 2025-08-28 09:54 | Outpatient (AMB) | payer OTHER, SELFPAY ==
--- NOTE | 2025-08-28 10:29 | MHC.PC.OV ---
Vital Signs 08/28/25 10:31 Weight 218 lb BP 124/90 H Blood Pressure Location Lt brachial Position Sitting Pulse 78 Temp 98.6 F Temp Source Oral Pulse Oximetry (%) 96 Oxygen Delivery Method Room Air Intake Visit Reasons: 4m f/u Youth Manager Required: No Allergies lisinopril Adverse Reaction (Intermediate, Verified 04/20/25 08:09) Cough statin Adverse Reaction (Mild, Uncoded 03/21/24 08:52) Muscle cramps Medication List - Last Reconciled 08/28/25 by EMANUEL Chanel- blood sugar diagnostic (FreeStyle Lite Strips) test BID blood sugar diagnostic test BID blood-glucose meter (FreeStyle Lite Meter kit) check glucose BID blood-glucose meter (OneTouch Ultra2 Meter kit) pt to test BID clotrimazole-betamethasone 1-0.05 % 1 appl topical BID 4 weeks fenofibrate 160 mg PO DAILY lancets (GreenLancerTouch Delica Plus Lancet) 2 times a day; lancets (FreeStyle Lancets) test BID losartan 25 mg PO DAILY 90 days metformin ER 750 mg PO BID 90 days pravastatin 40 mg PO BEDTIME tirzepatide (Mounjaro) 2.5 mg (0.5 mL) subcut QWEEK Tobacco use date assessed: 08/28/25 Dental Screening Dental Screen Date: 08/28/25 Did you have a dental visit in the last 12 months?: Yes Did you have a dental problem in the last 6 months where you did not have access to dental care?: No Was dental information given to patient?: Patient has dentist HPI 4m f/u HPI Details Chief Complaint Patient presents for a follow-up visit for diabetes management. History of Present Illness The patient is a 34-year-old male presenting for a follow-up visit for diabetes management. His recent Hemoglobin A1c was 6.5. He reports feeling well overall. The patient denies any history of pancreatitis, thyroid problems, or thyroid carcinoma. somewhat pruritic rash reported to inguinal region. Social History Health Maintenance - The patient will schedule his own diabetic eye exam. - Weight loss was discussed as a goal. Review of Systems - General: Reports feeling good. - Neurological: Denies neuropathy. - Endocrine: Denies any history of pancreatitis, thyroid problems, or thyroid carcinoma. Physical Exam General: Cooperative, healthy appearing, comfortable, no acute distress and well developed Orientation: Patient oriented x3 Limitations: No limitations Head: Normal to inspection Ears: Hearing grossly normal bilaterally Nose: Normal external nose present Face and sinus: Normal facial exam Eyes: Appearance normal, both eyes and all related structures Neck: Normal visual inspection and Yes full ROM Respiratory: Normal respiratory effort and able to speak in complete sentences. Clear to auscultation bilaterally Cardiovascular: Regular rate and rhythm. Normal S1 and S2 GI: Normal to inspection. Soft to palpation and nontender Skin: extensive tinea to groin, R>L Neuro: Patient oriented x3 Extremities: Feet were intact bilaterally. Positive sensation use of monofilament Results - Labs: Hemoglobin A1c is 6.5. Plan 1. Diabetes Mellitus The patient's diabetes is well-controlled with an A1c of 6.5. He denies neuropathy and has intact sensation in his feet. To further improve glycemic control and promote weight loss, a low-dose Mounjaro (GLP-1 agonist) will be initiated. The patient is aware of the side effects and denies contraindications such as a history of pancreatitis or thyroid carcinoma. Fasting labs will be obtained in the near future. The patient will schedule his own diabetic eye exam for screening. Discussion Notes I discussed with the patient that his A1c of 6.5 is impressive. I recommended starting a low-dose Mounjaro, a GLP-1 agonist, to help with weight loss and further improve his blood sugar control. He acknowledged understanding the side effects and confirmed no history of pancreatitis or thyroid carcinoma. I instructed him to get fasting labs soon and to schedule his own eye exam. Patient Instructions - You will be starting a new medication called Mounjaro to help with your blood sugar and weight. - We have discussed the possible side effects of this new medication. - Please get fasting lab work done in the near future. - Please make your own appointment for a diabetic eye exam. [facility] Medical History Periorbital edema of both eyes Fatty liver Metabolic syndrome TAPIA (nonalcoholic steatohepatitis) Hypertension Surgical History History of surgery on lower extremity Family History Mother Sleep apnea Sister Mental health disorder Stroke Social History Housing: House Are you a primary district manager primary care sales to a significant other at home: No Alcohol intake: current Alcohol intake frequency: holidays/special occasions only Patient Tobacco Use Status: Former Tobacco user Tobacco use type: Cigarette Years Smoked: 2 years e-Cigarette/Vaping Use: Never Used Second Hand Smoke Exposure: No Current occupational status: employed Current occupation: [employer] Current occupational exposures/hazards: No Cognitive needs: No Hearing needs: No Vision needs: No Questionnaire Thrive Questionnaire Date Thrive assessed: 04/14/25 I am a: Patient What is your living situation today?: I have a steady place to live Within the past 12 months, did the food you bought not last and you didn't have the money to get more?: Never true Within the past 12 months, did you worry whether your food would run out before you got money to buy more?: Never true Do you have trouble paying for medicines?: Yes Do you have trouble getting transportation to medical appointments?: No Do you have trouble paying your heating and electricity bill?: No Do you have trouble taking care of your child, family member or friend?: No Do you have trouble with day-to-day activities such as bathing, preparing meals, shopping, managing finances, etc.?: No Are you currently unemployed and looking for a job?: No Are you interested in more education?: No Please select the resources that you would like help with: None Currently or been in a relationship where the following occur: No concerns reported THRIVE Score: 0 EFREN-7 AMB Questionnaire EFREN-7 Date EFREN - 7 assessed: 04/20/25 Source: Developed by Drs. James Mcnair, Jody Love, Abiel Diaz and colleagues, with an educational chandler from [employer]. Physical exam (Primary Care) Vital Signs: Last Vital Signs Temp 98.6 F 08/28/25 10:31 Pulse 78 08/28/25 10:31 BP 124/90 H 08/28/25 10:31 Pulse Ox 96 08/28/25 10:31 Oxygen Delivery Method Room Air 08/28/25 10:31 Tobacco/Smoking Status: Tobacco use Status Tobacco use date assessed 08/28/25 08/28/25 10:31 Patient Tobacco Use Status Former Tobacco user 08/28/25 10:31 Tobacco use type Cigarette 08/28/25 10:31 e-Cigarette/Vaping Use Never Used 08/28/25 10:31 Thrive Assessment: Date of Thrive Assessment Date Thrive assessed 04/14/25 08/28/25 10:31 Currently or been in a relationship where the following occur: No concerns reported Results AMB Hemoglobin A1c AMB Hemoglobin A1c 6.5 % Last Edit by Juanis Madsen MA on 08/28/25 10:45 Results Reviewed Results Reviewed: Laboratory Last Values Hgb A1c (Clinic) 6.5 % (4.0-6.0) H 08/28/25 10:38 Coding Level of Care Code Est Pt Level 3 (57893) Diagnoses Diabetes E11.9 Tinea cruris B35.6 Assessment & Plan Assessment & Plan (1) Diabetes: Code(s): E11.9 - Type 2 diabetes mellitus without complications Category: Medical (2) Tinea cruris: Code(s): B35.6 - Tinea cruris Category: Medical Plan . Orders: Orders TSH reflex Free T4 Today E11.9 - Type 2 diabetes mellitus without complications AMB Hemoglobin A1c Today E11.9 - Type 2 diabetes mellitus without complications Medications: New tirzepatide (Mounjaro) for 4 weeks 2.5 mg (0.5 mL) subcut QWEEK 2 mL 0RF clotrimazole-betamethasone 1-0.05 % 1 appl topical BID 45 grams 0RF 4 weeks
[2025-08-28 10:31] VITALS: BP 124/90; PULSE 78; TEMP 37; O2SAT 96
--- OUTSIDE RECORDS SUMMARY | 2025-08-28 11:23 | XMS_ITS | Clinical Summary ---
Author Organization [facility] Facility Address [address] [place] [id number] Care Team Providers Care Baked And Graphite Inspector Name Role Phone Alejandro Flores NP Primary Care Provider [phone] Allergies No known active allergies Medications omega-3 [...] Health Maintenance Due Date Last Done Comments Influenza Vaccine (#1) 2025 10/30/2007 Hepatitis B Vaccine Completed 07/11/2008, 06/03/2007, 04/16/2007 Pneumococcal Vaccine: Peds ( 0 to 5 Years) and At-Risk Patients (6 to 49 Years) Aged Out No longer eligi ble based on patient's age to complete this topic Insurance Health Health Care Teams Baked And Graphite Inspector Relationship Specialty Start Date End Date Alejandro Flores NP [facility] [place] [address] PCP - General Nurse Practitioner 07/01/22
== END 2025-08-28 11:35 | disposition home or self-care (01) ==
LOC: HO.HMCC 09:56
PROVIDERS: PCP Nurse Practitioner Family; Visit Provider Nurse Practitioner Family
DX: E11.9 Type 2 diabetes mellitus without complications (principal); B35.6 Tinea cruris; Z23 Encounter for immunization